=== PATIENT | female | born 1930 | race Caucasian/White ===

== ENCOUNTER 2016-09-16 05:44 | Day surgery (SDC) | payer OTHER ==
[2016-09-15 13:49] VITALS: BMI 22.4
--- NOTE | 2016-09-16 06:48 | HP ---
Admitting History and Physical - Primary Care Physician PCP: Suzette Doty - Admission History of Present Illness: patient is a 86 y/o female with a past medical history of macular degeneration ( legally blind), depression, anxiety, hypertension, and diverticulitis. patient presents for ECT. patient is present with her two sons that provided the history. She has received ECT in the past, approximately 15 years ago with good results. Patient takes lithium daily (lithium level WNL as per son). Son reports that her depression has been stable, however, the recent loss of her , daughter, and sister has caused her to become more depressed. Patient doesn't want to engage in her ADL's and increasingly lethargic as per sons. Son reports that patient was hospitalized in 2015 ([place]) for depression. She was recently admitted to [facility] for diverticulitis. She completed a course of antibiotics, ciprofloxacin and levaquin. Her last dose of antibiotics was 09/02/16. Sons and patient deny any suicide attempts. She denies any suicidal, homicidal ideation, visual or auditory hallucination. History Source: Patient, Family Member (son) - Past Medical History Cardiovascular: Yes: HTN Gastrointestinal: Yes: Diverticulitis Reproductive: Yes: Postmenopausal Endocrine: Yes: Diabetes Mellitus - Past Surgical History Past Surgical History: Yes: Cholecystectomy, - Advance Directives Advance Directives: Yes: Living Will, Health Care Proxy - Smoking History Smoking history: Former smoker Have you smoked in the past 12 months: No If you are a former smoker, when did you quit?: S - Alcohol/Substance Use Hx Alcohol Use: No History of Substance Use: reports: None - Social History Usual Living Arrangement: Yes: Assisted Living ADL: Independent History of Recent Travel: No Home Medications - Allergies Allergies/Adverse Reactions: Allergies Allergy/AdvReac Type Severity Reaction Status Date / Time Penicillins Allergy Severe Hives Verified 09/15/16 13:30 - Home Medications Home Medications: Ambulatory Orders Aspirin [ASA -] 1 tab PO DAILY 09/15/16 Atenolol [Tenormin] 25 mg PO DAILY 09/15/16 Atorvastatin Ca [Lipitor] 10 mg PO HS 09/15/16 Cholecalciferol (Vitamin D3) [Vitamin D3] 2,000 unit PO DAILY 09/15/16 [place] Carbonate [Eskalith -] 150 mg PO HS 09/15/16 Losartan Potassium 100 mg PO DAILY 09/15/16 Metformin HCl [Metformin HCl ER] 500 mg PO BID 09/15/16 Family Disease History - Family Disease History Family History: Unremarkable Review of Systems - Review of Systems Constitutional: reports: No Symptoms Eyes: reports: No Symptoms HENT: reports: No Symptoms Neck: reports: No Symptoms Cardiovascular: reports: No Symptoms Respiratory: reports: No Symptoms Gastrointestinal: reports: No Symptoms Genitourinary: reports: No Symptoms Breasts: reports: No Symptoms Reported Musculoskeletal: reports: No Symptoms Integumentary: reports: No Symptoms Neurological: reports: No Symptoms Endocrine: reports: No Symptoms Hematology/Lymphatic: reports: No Symptoms Psychiatric: reports: Depression Physical Examination Vital Signs: Vital Signs Period Temp Pulse Resp BP Sys/Marroquin Pulse Ox Last 24 Hr 98.4 F 60 18 139/73 95 Constitutional: Yes: Well Nourished, No Distress, Calm Eyes: Yes: WNL, Conjunctiva Clear, EOM Intact HENT: Yes: WNL, Atraumatic, Normocephalic Neck: Yes: WNL, Supple, Trachea Midline Cardiovascular: Yes: WNL, Regular Rate and Rhythm, S1, S2 Respiratory: Yes: WNL, Regular, CTA Bilaterally Gastrointestinal: Yes: WNL, Normal Bowel Sounds, Soft ...Rectal Exam: Yes: Deferred Renal/: Yes: WNL Musculoskeletal: Yes: WNL Extremities: Yes: WNL Edema: No Peripheral Pulses WNL: Yes Peripheral Pulses: Left Radial: 4+, Right Radial: 4+, Left Doralis Pedis: 3+, Right Dorsalis Pedis: 3+, Left Femoral: 3+, Right Femoral: 3+ Integumentary: Yes: WNL Neurological: Yes: WNL, Alert, Oriented ...Motor Strength: WNL Psychiatric: Yes: WNL, Alert, Oriented, Other (flat affect) Labs: CBC WBC 11.0 K/mm3 (4.0-10.0) H 09/16/16 06:30 RBC 4.37 M/mm3 (3.60-5.2) 09/16/16 06:30 Hgb 12.3 GM/dL (10.7-15.3) 09/16/16 06:30 Hct 37.2 % (32.4-45.2) 09/16/16 06:30 MCV 85.2 fl (80-96) 09/16/16 06:30 MCHC 32.9 g/dl (32.0-36.0) 09/16/16 06:30 RDW 13.9 % (11.6-15.6) 09/16/16 06:30 Plt Count 213 K/MM3 (134-434) 09/16/16 06:30 MPV 8.9 fl (7.5-11.1) 09/16/16 06:30 Neutrophils % 68.9 % (42.8-82.8) 09/16/16 06:30 Lymphocytes % 18.0 % (8-40) 09/16/16 06:30 Monocytes % 9.9 % (3.8-10.2) 09/16/16 06:30 Eosinophils % 2.3 % (0-4.5) 09/16/16 06:30 Basophils % 0.9 % (0-2.0) 09/16/16 06:30 CMP Sodium 141 mmol/L (136-145) 09/16/16 06:30 Potassium 4.4 mmol/L (3.5-5.1) 09/16/16 06:30 Chloride 106 mmol/L (98-107) 09/16/16 06:30 Carbon Dioxide 25 mmol/L (22-28) 09/16/16 06:30 Imaging - Results EKG: Report Reviewed, Image Reviewed, Other (nsr no ischemic changes) Assessment/Plan patient is a 86 y/o female that presents for ect, labs and ekg reviewed pt is low risk for procedure informed consent, risk/benefits to be obtained by Dr Genao
[2016-09-16 07:28] VITALS: TEMP 98.4
[2016-09-16 07:45] LABS: BASOPHIL 0.9 % (0-2.0); EOSINOPHIL 2.3 % (0-4.5); MCHC 32.9 g/dl (32.0-36.0); MEAN CELL VOLUME 85.2 fl (80-96); MEAN PLT VOLUME 8.9 fl (7.5-11.1); NEUTROPHILS 68.9 % (42.8-82.8); PLATELET COUNT 213 K/MM3 (134-434); RDW 13.9 % (11.6-15.6)
[2016-09-16 10:37] VITALS: BP 144/69; PULSE 62
--- NOTE | 2016-09-19 22:42 | EKG ---
Test Reason : Blood Pressure : / mmHG Vent. Rate : 062 BPM Atrial Rate : 062 BPM P-R Int : 178 ms QRS Dur : 126 ms QT Int : 440 ms P-R-T Axes : 059 036 034 degrees QTc Int : 446 ms NORMAL SINUS RHYTHM RIGHT BUNDLE BRANCH BLOCK ABNORMAL ECG NO PREVIOUS ECGS AVAILABLE Confirmed by HILL SALAZAR MD ([id number]) on 09/19/2016 10:41:35 PM Referred By: Phil Genao Confirmed By:HILL SALAZAR MD
== END 2016-09-16 10:15 ==
LOC: FECT 05:44
PROVIDERS: ATTEND Psychiatry & Neurology Psychiatry
PROC: GZB4ZZZ Other Electroconvulsive Therapy (ICD-10-PCS; principal; 2016-09-16 07:45)
DX: F33.2 Major depressive disorder, recurrent severe without psychotic features (principal)
CPT/HCPCS: 36415; 80051; 85025; 90870; 93005; 94760

== ENCOUNTER 2016-09-19 05:49 | Day surgery (SDC) | payer OTHER ==
[2016-09-16 12:24] VITALS: BMI 23.3
[2016-09-19] MEDS ORDERED: KETAMINE HCL 500 MG/10 ML VIAL ONE (08:03)
[2016-09-19] MEDS ORDERED: LACTATED RINGERS SOLUTION 1,000 ML IV SCH (09:00)
[2016-09-19 11:23] VITALS: PULSE 76; TEMP 98.3
[2016-09-19 11:27] VITALS: BP 173/89
== END 2016-09-19 10:10 | disposition home or self-care (01) ==
LOC: FECT 05:49
PROVIDERS: ATTEND Psychiatry & Neurology Psychiatry
PROC: GZB4ZZZ Other Electroconvulsive Therapy (ICD-10-PCS; principal; 2016-09-19 08:15)
DX: F33.2 Major depressive disorder, recurrent severe without psychotic features (principal)
CPT/HCPCS: 90870; 94760

== ENCOUNTER 2016-09-21 05:41 | Day surgery (SDC) | payer OTHER ==
[2016-09-20 15:32] VITALS: BMI 23.3
[2016-09-21 06:46] VITALS: TEMP 98.2
[2016-09-21] MEDS ORDERED: KETAMINE HCL 500 MG/10 ML VIAL ONE (07:22)
[2016-09-21] MEDS ORDERED: ONDANSETRON 4 MG/2 ML VIAL IVPUSH PRN (09:02)
[2016-09-21 09:07] VITALS: PULSE 77
[2016-09-21 10:01] VITALS: BP 157/87
== END 2016-09-21 09:45 | disposition home or self-care (01) ==
LOC: FECT 05:41
PROVIDERS: ATTEND Psychiatry & Neurology Psychiatry
PROC: GZB4ZZZ Other Electroconvulsive Therapy (ICD-10-PCS; principal; 2016-09-21 08:00)
DX: F33.2 Major depressive disorder, recurrent severe without psychotic features (principal)
CPT/HCPCS: 90870; 94760

== ENCOUNTER 2016-09-23 05:44 | Day surgery (SDC) | payer OTHER ==
[2016-09-20 15:25] VITALS: BMI 23.3
[2016-09-23] MEDS ORDERED: KETAMINE HCL 500 MG/10 ML VIAL ONE (07:54)
[2016-09-23 09:55] VITALS: TEMP 98.1
[2016-09-23 11:10] VITALS: BP 154/75; PULSE 62
== END 2016-09-23 10:40 | disposition home or self-care (01) ==
LOC: FECT 05:44
PROVIDERS: ATTEND Psychiatry & Neurology Psychiatry
PROC: GZB4ZZZ Other Electroconvulsive Therapy (ICD-10-PCS; principal; 2016-09-23 08:15)
DX: F33.2 Major depressive disorder, recurrent severe without psychotic features (principal)
CPT/HCPCS: 90870; 94760

== ENCOUNTER 2016-10-03 05:43 | Day surgery (SDC) | payer OTHER ==
[2016-09-27 10:55] VITALS: BMI 23.3
[2016-10-03 06:21] VITALS: TEMP 98.2
[2016-10-03] MEDS ORDERED: KETAMINE HCL 500 MG/10 ML VIAL ONE (06:57)
[2016-10-03 08:27] VITALS: BP 137/66; PULSE 56
== END 2016-10-03 08:30 | disposition home or self-care (01) ==
LOC: FECT 05:43
PROVIDERS: ATTEND Psychiatry & Neurology Psychiatry
PROC: GZB4ZZZ Other Electroconvulsive Therapy (ICD-10-PCS; principal; 2016-10-03 08:00)
DX: F33.2 Major depressive disorder, recurrent severe without psychotic features (principal)
CPT/HCPCS: 90870; 94760

== ENCOUNTER 2016-10-05 05:42 | Day surgery (SDC) | payer OTHER ==
[2016-10-03 13:24] VITALS: BMI 22.4
[2016-10-05] MEDS ORDERED: KETAMINE HCL 500 MG/10 ML VIAL ONE (07:29)
[2016-10-05 08:40] VITALS: TEMP 97.6
[2016-10-05 09:02] VITALS: BP 146/77; PULSE 61
== END 2016-10-05 09:10 | disposition home or self-care (01) ==
LOC: FECT 05:42
PROVIDERS: ATTEND Psychiatry & Neurology Psychiatry
PROC: GZB4ZZZ Other Electroconvulsive Therapy (ICD-10-PCS; principal; 2016-10-05 08:15)
DX: F33.2 Major depressive disorder, recurrent severe without psychotic features (principal)
CPT/HCPCS: 90870; 94760

== ENCOUNTER 2016-10-07 06:16 | Day surgery (SDC) | payer OTHER ==
[2016-10-04 11:46] VITALS: BMI 22.4
[2016-10-07 06:45] VITALS: TEMP 98
[2016-10-07] MEDS ORDERED: KETAMINE HCL 500 MG/10 ML VIAL ONE (07:09)
[2016-10-07] MEDS ORDERED: LACTATED RINGERS SOLUTION 1,000 ML IV SCH (07:45)
[2016-10-07 08:51] VITALS: BP 145/66; PULSE 60
[2016-10-07] MEDS ORDERED: ONDANSETRON 4 MG/2 ML VIAL IVPUSH PRN (09:08)
== END 2016-10-07 08:45 | disposition home or self-care (01) ==
LOC: FECT 06:16
PROVIDERS: ATTEND Psychiatry & Neurology Psychiatry
PROC: GZB4ZZZ Other Electroconvulsive Therapy (ICD-10-PCS; principal; 2016-10-07 07:45)
DX: F33.2 Major depressive disorder, recurrent severe without psychotic features (principal)
CPT/HCPCS: 90870; 94760

== ENCOUNTER 2016-10-10 05:37 | Day surgery (SDC) | payer OTHER ==
[2016-10-04 12:24] VITALS: BMI 22.4
[2016-10-10] MEDS ORDERED: KETAMINE HCL 500 MG/10 ML VIAL ONE (07:26)
[2016-10-10 08:16] VITALS: TEMP 97.6
[2016-10-10 09:27] VITALS: BP 146/61; PULSE 58
== END 2016-10-10 09:31 | disposition home or self-care (01) ==
LOC: FECT 05:37
PROVIDERS: ATTEND Psychiatry & Neurology Psychiatry
PROC: GZB4ZZZ Other Electroconvulsive Therapy (ICD-10-PCS; principal; 2016-10-10 07:30)
DX: F33.2 Major depressive disorder, recurrent severe without psychotic features (principal)
CPT/HCPCS: 90870; 94760

== ENCOUNTER 2016-10-12 05:28 | Day surgery (SDC) | payer OTHER ==
[2016-10-06 13:32] VITALS: BMI 22.4
[2016-10-12] MEDS ORDERED: KETAMINE HCL 500 MG/10 ML VIAL ONE (07:10)
[2016-10-12 08:51] VITALS: TEMP 98.2
[2016-10-12 09:03] VITALS: BP 150/74; PULSE 58
== END 2016-10-12 09:05 | disposition home or self-care (01) ==
LOC: FECT 05:28
PROVIDERS: ATTEND Psychiatry & Neurology Psychiatry
PROC: GZB4ZZZ Other Electroconvulsive Therapy (ICD-10-PCS; principal; 2016-10-12 07:30)
DX: F33.2 Major depressive disorder, recurrent severe without psychotic features (principal)
CPT/HCPCS: 90870; 94760

== ENCOUNTER 2016-10-18 05:37 | Day surgery (SDC) | payer OTHER ==
[2016-09-21 16:34] VITALS: BMI 23.3
--- NOTE | 2016-10-18 07:19 | HP ---
Admitting History and Physical - Admission History of Present Illness: patient is a 86 y/o female with a past medical history of depression, anxiety, macular degeneration (legally blind), hypertension, and diverticulitis. patient presents for ect,her last ect was 10/14/16. she reports feeling much improved since starting ect. she reports an ability to engage in her adl's and less lethargy. she denies any suicidal or homicidal ideation. she denies any recent medication changes or illneses. History Source: Patient Limitations to Obtaining History: No Limitations - Past Medical History Cardiovascular: Yes: HTN Gastrointestinal: Yes: Diverticulitis Endocrine: Yes: Diabetes Mellitus - Past Surgical History Past Surgical History: Yes: Cholecystectomy, - Smoking History Smoking history: Former smoker Have you smoked in the past 12 months: No If you are a former smoker, when did you quit?: - Alcohol/Substance Use Hx Alcohol Use: No History of Substance Use: reports: None - Social History ADL: Independent History of Recent Travel: No Home Medications - Allergies Allergies/Adverse Reactions: Allergies Allergy/AdvReac Type Severity Reaction Status Date / Time Penicillins Allergy Severe Hives Verified 10/12/16 06:30 - Home Medications Home Medications: Ambulatory Orders Aspirin [ASA -] 1 tab PO DAILY 09/15/16 Atenolol [Tenormin] 25 mg PO DAILY 09/15/16 Atorvastatin Ca [Lipitor] 10 mg PO HS 09/15/16 Cholecalciferol (Vitamin D3) [Vitamin D3] 2,000 unit PO DAILY 09/15/16 [place] Carbonate [Eskalith -] 150 mg PO HS 09/15/16 Losartan Potassium 100 mg PO DAILY 09/15/16 Vitamin B Complex 1 each PO DAILY 10/10/16 Family Disease History - Family Disease History Family Disease History: Other: Daughter (depresssion ) Review of Systems - Review of Systems Constitutional: reports: No Symptoms Eyes: reports: No Symptoms HENT: reports: No Symptoms Neck: reports: No Symptoms Cardiovascular: reports: No Symptoms Respiratory: reports: No Symptoms Gastrointestinal: reports: No Symptoms Genitourinary: reports: No Symptoms Breasts: reports: No Symptoms Reported Musculoskeletal: reports: No Symptoms Integumentary: reports: No Symptoms Neurological: reports: No Symptoms Endocrine: reports: No Symptoms Hematology/Lymphatic: reports: No Symptoms Psychiatric: reports: No Symptoms Physical Examination Vital Signs: Vital Signs Temperature 97.5 F L 10/18/16 06:09 Pulse Rate 55 L 10/18/16 06:09 Respiratory Rate 16 10/18/16 06:09 Blood Pressure 158/71 10/18/16 06:09 O2 Sat by Pulse Oximetry (%) 97 10/18/16 06:09 Constitutional: Yes: Well Nourished, No Distress, Calm Eyes: Yes: WNL, Conjunctiva Clear, EOM Intact HENT: Yes: WNL, Atraumatic, Normocephalic Neck: Yes: WNL, Supple, Trachea Midline Cardiovascular: Yes: WNL, Regular Rate and Rhythm, S1, S2 Respiratory: Yes: WNL, Regular, CTA Bilaterally Gastrointestinal: Yes: WNL, Normal Bowel Sounds, Soft ...Rectal Exam: Yes: Deferred Renal/: Yes: WNL Breast(s): Yes: WNL Musculoskeletal: Yes: WNL Extremities: Yes: WNL Edema: No Peripheral Pulses WNL: Yes Peripheral Pulses: Left Radial: 4+, Right Radial: 4+, Left Doralis Pedis: 3+, Right Dorsalis Pedis: 3+, Left Femoral: 3+, Right Femoral: 3+ Integumentary: Yes: WNL Neurological: Yes: WNL, Alert, Oriented ...Motor Strength: WNL Psychiatric: Yes: WNL, Alert, Oriented Labs: reviewed 09/02 Imaging - Results EKG: Image Reviewed, Other (nsr no ischemic changes) Assessment/Plan pt is a 86 y/o female that presents for ect, pat has received ect in the past and denies any adverse reaction to anesthesia labs and ekg reviewed pt is low risk for procedure informed consent, risks/benefits to be obtained by Dr Genao
[2016-10-18] MEDS ORDERED: KETAMINE HCL 500 MG/10 ML VIAL ONE (07:38)
[2016-10-18 09:04] VITALS: TEMP 97.8
[2016-10-18 09:06] VITALS: BP 148/78; PULSE 56
== END 2016-10-18 09:15 | disposition home or self-care (01) ==
LOC: FECT 05:37
PROVIDERS: ATTEND Psychiatry & Neurology Psychiatry
PROC: GZB4ZZZ Other Electroconvulsive Therapy (ICD-10-PCS; principal; 2016-10-18 07:30)
DX: F33.2 Major depressive disorder, recurrent severe without psychotic features (principal)
CPT/HCPCS: 90870; 94760

== ENCOUNTER 2016-10-25 05:36 | Day surgery (SDC) | payer OTHER ==
[2016-09-21 16:26] VITALS: BMI 23.3
[~2016-10-25 05:36] MED LIST: LACTATED RINGERS SOLUTION 1,000 ML IV SCH; ONDANSETRON 4 MG/2 ML VIAL IVPUSH PRN
[2016-10-25] MEDS ORDERED: KETAMINE HCL 500 MG/10 ML VIAL ONE (06:54)
[2016-10-25 08:04] VITALS: TEMP 97.4
[2016-10-25 08:58] VITALS: BP 146/72; PULSE 54
== END 2016-10-25 09:02 | disposition home or self-care (01) ==
LOC: FECT 05:36
PROVIDERS: ATTEND Psychiatry & Neurology Psychiatry
PROC: GZB4ZZZ Other Electroconvulsive Therapy (ICD-10-PCS; principal; 2016-10-25 07:00)
DX: F33.2 Major depressive disorder, recurrent severe without psychotic features (principal)
CPT/HCPCS: 90870; 94760

== ENCOUNTER 2016-11-01 05:48 | Day surgery (SDC) | payer OTHER ==
[2016-10-27 12:33] VITALS: BMI 23.3
[2016-11-01] MEDS ORDERED: LACTATED RINGERS SOLUTION 1,000 ML IV SCH (07:30)
[2016-11-01] MEDS ORDERED: KETAMINE HCL 500 MG/10 ML VIAL ONE (07:30)
[2016-11-01 14:30] VITALS: TEMP 98.4
[2016-11-01 14:38] VITALS: BP 140/68; PULSE 57
== END 2016-11-01 09:30 | disposition home or self-care (01) ==
LOC: FECT 05:48
PROVIDERS: ATTEND Psychiatry & Neurology Psychiatry
PROC: GZB4ZZZ Other Electroconvulsive Therapy (ICD-10-PCS; principal; 2016-11-01 07:30)
DX: F33.2 Major depressive disorder, recurrent severe without psychotic features (principal)
CPT/HCPCS: 90870; 94760

== ENCOUNTER 2016-11-15 05:42 | Day surgery (SDC) | payer OTHER ==
[2016-11-08 11:51] VITALS: BMI 23.3
[2016-11-15] MEDS ORDERED: KETAMINE HCL 500 MG/10 ML VIAL ONE (07:31)
[2016-11-15] MEDS ORDERED: ACETAMINOPHEN 325 MG TABLET (FP) PO PRN (07:49)
[2016-11-15] MEDS ORDERED: ONDANSETRON 4 MG/2 ML VIAL IVPUSH PRN (07:49)
[2016-11-15 08:52] VITALS: TEMP 98.2
[2016-11-15 09:17] VITALS: BP 143/75; PULSE 61
== END 2016-11-15 09:25 | disposition home or self-care (01) ==
LOC: FECT 05:42
PROVIDERS: ATTEND Psychiatry & Neurology Psychiatry
PROC: GZB4ZZZ Other Electroconvulsive Therapy (ICD-10-PCS; principal; 2016-11-15 07:15)
DX: F33.2 Major depressive disorder, recurrent severe without psychotic features (principal)
CPT/HCPCS: 90870; 94760

== ENCOUNTER 2016-11-29 05:38 | Day surgery (SDC) | payer OTHER ==
[2016-11-17 12:17] VITALS: BMI 23.3
[2016-11-29 07:16] VITALS: TEMP 98.2
--- NOTE | 2016-11-29 07:34 | HP ---
Admitting History and Physical - Admission History of Present Illness: patient is a 86 y/o female with a past medical history of depression, anxiety, macular degeneration (legally blind), hypertension, and diverticulitis. patient presents for ect, his last ect was 11/15/16. patient reports feeling well , she reports an improvement in depressive symptoms since starting ect. She reports moving back into her assisted living apartment and engaging more activities. patient reports compliance with prescribed medication and denies any recent illness. History Source: Patient Limitations to Obtaining History: No Limitations - Past Medical History Cardiovascular: Yes: HTN Gastrointestinal: Yes: Diverticulitis Endocrine: Yes: Diabetes Mellitus - Past Surgical History Past Surgical History: Yes: Cholecystectomy, - Smoking History Smoking history: Former smoker Have you smoked in the past 12 months: No If you are a former smoker, when did you quit?: S - Alcohol/Substance Use Hx Alcohol Use: No History of Substance Use: reports: None - Social History ADL: Independent History of Recent Travel: No Home Medications - Allergies Allergies/Adverse Reactions: Allergies Allergy/AdvReac Type Severity Reaction Status Date / Time Penicillins Allergy Severe Hives Verified 10/12/16 06:30 - Home Medications Home Medications: Ambulatory Orders Aspirin [ASA -] 1 tab PO DAILY 09/15/16 Atenolol [Tenormin] 25 mg PO DAILY 09/15/16 Atorvastatin Ca [Lipitor] 10 mg PO HS 09/15/16 Cholecalciferol (Vitamin D3) [Vitamin D3] 2,000 unit PO DAILY 09/15/16 [place] Carbonate [Eskalith -] 150 mg PO HS 09/15/16 Losartan Potassium 100 mg PO DAILY 09/15/16 Vitamin B Complex 1 each PO DAILY 10/10/16 Family Disease History - Family Disease History Family Disease History: Other: Daughter (depresssion ) Review of Systems - Review of Systems Constitutional: reports: No Symptoms Eyes: reports: No Symptoms HENT: reports: No Symptoms Neck: reports: No Symptoms Cardiovascular: reports: No Symptoms Respiratory: reports: No Symptoms Gastrointestinal: reports: No Symptoms Genitourinary: reports: No Symptoms Musculoskeletal: reports: No Symptoms Integumentary: reports: No Symptoms Neurological: reports: No Symptoms Endocrine: reports: No Symptoms Hematology/Lymphatic: reports: No Symptoms Psychiatric: reports: No Symptoms Physical Examination Constitutional: Yes: Well Nourished, No Distress, Calm Eyes: Yes: WNL, Conjunctiva Clear, EOM Intact HENT: Yes: WNL, Atraumatic, Normocephalic Neck: Yes: WNL, Supple, Trachea Midline Cardiovascular: Yes: WNL, Regular Rate and Rhythm, S1, S2 Respiratory: Yes: WNL, Regular, CTA Bilaterally Gastrointestinal: Yes: WNL, Normal Bowel Sounds, Soft ...Rectal Exam: Yes: Deferred Renal/: Yes: WNL Musculoskeletal: Yes: WNL Extremities: Yes: WNL Edema: No Peripheral Pulses WNL: Yes Peripheral Pulses: Left Radial: 4+, Right Radial: 4+, Left Doralis Pedis: 3+, Right Dorsalis Pedis: 3+, Left Femoral: 3+, Right Femoral: 3+ Integumentary: Yes: WNL Neurological: Yes: WNL, Alert, Oriented ...Motor Strength: WNL Psychiatric: Yes: WNL, Alert, Oriented Labs: reviewed 09/02 Imaging - Results EKG: Image Reviewed, Other (nsr no ischemic changes) Assessment/Plan pt is a 86 y/o female that presents for ect, pt has received ect in the past and denies any adverse reaction to anesthesia. labs and ekg reviewed pt is low risk for procedure informed consent, risks/benefits to be obtained by Dr Genao
[2016-11-29] MEDS ORDERED: KETAMINE HCL 500 MG/10 ML VIAL ONE (08:02)
[2016-11-29 09:17] VITALS: PULSE 56
[2016-11-29 09:49] VITALS: BP 139/71
== END 2016-11-29 09:45 | disposition home or self-care (01) ==
LOC: FECT 05:38
PROVIDERS: ATTEND Psychiatry & Neurology Psychiatry
PROC: GZB4ZZZ Other Electroconvulsive Therapy (ICD-10-PCS; principal; 2016-11-29 07:30)
DX: F33.2 Major depressive disorder, recurrent severe without psychotic features (principal)
CPT/HCPCS: 90870; 94760

== ENCOUNTER 2016-12-13 05:39 | Day surgery (SDC) | payer OTHER ==
[2016-12-07 12:46] VITALS: BMI 23.3
[2016-12-13] MEDS ORDERED: KETAMINE HCL 500 MG/10 ML VIAL ONE (07:34)
[2016-12-13 08:38] VITALS: TEMP 97.7
[2016-12-13 09:29] VITALS: BP 168/72; PULSE 61
== END 2016-12-13 09:20 | disposition home or self-care (01) ==
LOC: FECT 05:39
PROVIDERS: ATTEND Psychiatry & Neurology Psychiatry
PROC: GZB4ZZZ Other Electroconvulsive Therapy (ICD-10-PCS; principal; 2016-12-13 07:00)
DX: F33.2 Major depressive disorder, recurrent severe without psychotic features (principal)
CPT/HCPCS: 90870; 94760

== ENCOUNTER 2016-12-27 05:38 | Day surgery (SDC) | payer OTHER ==
[2016-12-22 08:36] VITALS: BMI 23.3
[2016-12-27] MEDS ORDERED: KETAMINE HCL 500 MG/10 ML VIAL ONE (07:05)
[2016-12-27 08:23] VITALS: TEMP 97.5
[2016-12-27 08:42] VITALS: BP 145/74; PULSE 61
== END 2016-12-27 08:40 | disposition home or self-care (01) ==
LOC: FECT 05:38
PROVIDERS: ATTEND Psychiatry & Neurology Psychiatry
PROC: GZB4ZZZ Other Electroconvulsive Therapy (ICD-10-PCS; principal; 2016-12-27 07:45)
DX: F33.2 Major depressive disorder, recurrent severe without psychotic features (principal)
CPT/HCPCS: 90870; 94760

== ENCOUNTER 2017-01-17 05:36 | Day surgery (SDC) | payer OTHER ==
[2017-01-11 11:29] VITALS: BMI 23.3
--- NOTE | 2017-01-17 07:05 | HP ---
Admitting History and Physical - Admission History of Present Illness: patient is a 86 y/o female with a past medical history of depression, anxiety, macular degeneration (legally blind), hypertension, and diverticulitis. Patient presents for ect, her last ect was 12/27/16. She reports feeling well and improvement in depressive symptoms since starting ect. she reports engaging in more activities in her assisted living. she denies any recent illnesses or hospitalizations. she denies any changes in medicaitons. patient denies any suicidal or homicidal ideation, visual or auditoyr hallucinations. History Source: Patient Limitations to Obtaining History: No Limitations - Past Medical History Cardiovascular: Yes: HTN Gastrointestinal: Yes: Diverticulitis Endocrine: Yes: Diabetes Mellitus - Past Surgical History Past Surgical History: Yes: Cholecystectomy, - Smoking History Smoking history: Former smoker Have you smoked in the past 12 months: No If you are a former smoker, when did you quit?: S - Alcohol/Substance Use Hx Alcohol Use: No History of Substance Use: reports: None - Social History ADL: Independent History of Recent Travel: No Home Medications - Allergies Allergies/Adverse Reactions: Allergies Allergy/AdvReac Type Severity Reaction Status Date / Time Penicillins Allergy Severe Hives Verified 01/17/17 07:32 - Home Medications Home Medications: Ambulatory Orders Aspirin [ASA -] 1 tab PO DAILY 09/15/16 Atenolol [Tenormin] 25 mg PO DAILY 09/15/16 Atorvastatin Ca [Lipitor] 10 mg PO HS 09/15/16 Cholecalciferol (Vitamin D3) [Vitamin D3] 2,000 unit PO DAILY 09/15/16 [place] Carbonate [Eskalith -] 150 mg PO HS 09/15/16 Losartan Potassium 100 mg PO DAILY 09/15/16 Vitamin B Complex 1 each PO DAILY 10/10/16 Metformin HCl 500 mg PO DAILY 11/29/16 Family Disease History - Family Disease History Family Disease History: Other: Daughter (depresssion ) Review of Systems - Review of Systems Constitutional: reports: No Symptoms Eyes: reports: No Symptoms HENT: reports: No Symptoms Neck: reports: No Symptoms Cardiovascular: reports: No Symptoms Respiratory: reports: No Symptoms Gastrointestinal: reports: No Symptoms Genitourinary: reports: No Symptoms Musculoskeletal: reports: No Symptoms Integumentary: reports: No Symptoms Neurological: reports: No Symptoms Endocrine: reports: No Symptoms Hematology/Lymphatic: reports: No Symptoms Psychiatric: reports: No Symptoms Physical Examination Constitutional: Yes: Well Nourished, No Distress, Calm Eyes: Yes: WNL, Conjunctiva Clear, EOM Intact HENT: Yes: WNL, Atraumatic, Normocephalic Neck: Yes: WNL, Supple, Trachea Midline Cardiovascular: Yes: WNL, Regular Rate and Rhythm, S1, S2 Respiratory: Yes: WNL, Regular, CTA Bilaterally Gastrointestinal: Yes: WNL, Normal Bowel Sounds, Soft ...Rectal Exam: Yes: Deferred Renal/: Yes: WNL Breast(s): Yes: WNL Musculoskeletal: Yes: WNL Extremities: Yes: WNL Edema: No Peripheral Pulses WNL: Yes Peripheral Pulses: Left Radial: 4+, Right Radial: 4+, Left Doralis Pedis: 3+, Right Dorsalis Pedis: 3+, Left Femoral: 3+, Right Femoral: 3+ Integumentary: Yes: WNL Neurological: Yes: WNL, Alert, Oriented ...Motor Strength: WNL Psychiatric: Yes: WNL, Alert, Oriented Labs: reviewed 09/16/16 Imaging - Results EKG: Report Reviewed, Image Reviewed, Other (nsr no ischemic changes) Assessment/Plan pt is a 86 y/o female that presents for ect, labs and ekg reviewed. pt is medically optimized for procedure.
[2017-01-17 07:30] VITALS: TEMP 97.9
[2017-01-17] MEDS ORDERED: KETAMINE HCL 500 MG/10 ML VIAL ONE (08:25)
[2017-01-17 10:02] VITALS: BP 135/65; PULSE 55
== END 2017-01-17 09:50 | disposition home or self-care (01) ==
LOC: FECT 05:36
PROVIDERS: ATTEND Psychiatry & Neurology Psychiatry
PROC: GZB4ZZZ Other Electroconvulsive Therapy (ICD-10-PCS; principal; 2017-01-17 07:00)
DX: F33.2 Major depressive disorder, recurrent severe without psychotic features (principal)
CPT/HCPCS: 90870; 94760

== ENCOUNTER 2017-02-09 05:40 | Day surgery (SDC) | payer OTHER ==
[2017-02-06 17:22] VITALS: BMI 23.3
[2017-02-09] MEDS ORDERED: LACTATED RINGERS SOLUTION 1,000 ML IV SCH (07:15)
[2017-02-09] MEDS ORDERED: KETAMINE HCL 500 MG/10 ML VIAL ONE (07:29)
[2017-02-09 09:13] VITALS: PULSE 58; TEMP 97.6
[2017-02-09 09:17] VITALS: BP 149/68
== END 2017-02-09 09:10 | disposition home or self-care (01) ==
LOC: FECT 05:40
PROVIDERS: ATTEND Psychiatry & Neurology Psychiatry
PROC: GZB4ZZZ Other Electroconvulsive Therapy (ICD-10-PCS; principal; 2017-02-09 07:15)
DX: F33.2 Major depressive disorder, recurrent severe without psychotic features (principal)
CPT/HCPCS: 90870; 94760

== ENCOUNTER 2017-03-02 06:43 | Day surgery (SDC) | payer OTHER ==
--- NOTE | 2017-03-02 07:13 | HP ---
Admitting History and Physical - Admission History of Present Illness: patient is a 86 y/o female with a past medical history of depression, anxiety, macular degeneration (legally blind), hypertension, and diverticulitis. Patient presents for ect her last ect was 02/09/17. She reports an improvement in depressive symptoms since starting ect. Patient denies any recent illness or hospitalizations. She denies any changes in medications. Patient denies any suicidal or homicidal ideation, visual or auditory hallucinations. History Source: Patient Limitations to Obtaining History: No Limitations - Past Medical History Cardiovascular: Yes: HTN Gastrointestinal: Yes: Diverticulitis Endocrine: Yes: Diabetes Mellitus - Past Surgical History Past Surgical History: Yes: Cholecystectomy, - Smoking History Smoking history: Former smoker Have you smoked in the past 12 months: No If you are a former smoker, when did you quit?: S - Alcohol/Substance Use Hx Alcohol Use: No History of Substance Use: reports: None - Social History Usual Living Arrangement: Yes: Alone, Assisted Living ADL: Independent Occupation: retired History of Recent Travel: No Home Medications - Allergies Allergies/Adverse Reactions: Allergies Allergy/AdvReac Type Severity Reaction Status Date / Time Penicillins Allergy Severe Hives Verified 01/17/17 07:32 - Home Medications Home Medications: Ambulatory Orders Aspirin [ASA -] 1 tab PO DAILY 09/15/16 Atenolol [Tenormin] 25 mg PO DAILY 09/15/16 Atorvastatin Ca [Lipitor] 10 mg PO HS 09/15/16 Cholecalciferol (Vitamin D3) [Vitamin D3] 2,000 unit PO DAILY 09/15/16 [place] Carbonate [Eskalith -] 150 mg PO HS 09/15/16 Losartan Potassium 100 mg PO DAILY 09/15/16 Vitamin B Complex 1 each PO DAILY 10/10/16 Metformin HCl 500 mg PO DAILY 11/29/16 Family Disease History - Family Disease History Family Disease History: Other: Daughter (depresssion ) Review of Systems - Review of Systems Constitutional: reports: No Symptoms Eyes: reports: No Symptoms HENT: reports: No Symptoms Neck: reports: No Symptoms Cardiovascular: reports: No Symptoms Respiratory: reports: No Symptoms Gastrointestinal: reports: No Symptoms Genitourinary: reports: No Symptoms Breasts: reports: No Symptoms Reported Musculoskeletal: reports: No Symptoms Integumentary: reports: No Symptoms Neurological: reports: No Symptoms Endocrine: reports: No Symptoms Hematology/Lymphatic: reports: No Symptoms Psychiatric: reports: No Symptoms Physical Examination Constitutional: Yes: Well Nourished, No Distress, Calm Eyes: Yes: WNL, Conjunctiva Clear, EOM Intact HENT: Yes: WNL, Atraumatic, Normocephalic Neck: Yes: WNL, Supple, Trachea Midline Cardiovascular: Yes: WNL, Regular Rate and Rhythm, S1, S2 Respiratory: Yes: WNL, Regular, CTA Bilaterally Gastrointestinal: Yes: WNL, Normal Bowel Sounds, Soft ...Rectal Exam: Yes: Deferred Renal/: Yes: WNL Breast(s): Yes: WNL Musculoskeletal: Yes: WNL Extremities: Yes: WNL Edema: No Peripheral Pulses WNL: Yes Peripheral Pulses: Left Radial: 4+, Right Radial: 4+, Left Doralis Pedis: 3+, Right Dorsalis Pedis: 3+, Left Femoral: 3+, Right Femoral: 3+ Integumentary: Yes: WNL Neurological: Yes: WNL, Alert, Oriented ...Motor Strength: WNL Psychiatric: Yes: WNL, Alert, Oriented Labs: reviewed 09/16/16 Imaging - Results EKG: Other (nsr Right BBB) Assessment/Plan patient is a 86 y/o female, that presents for ect, labs and ekg reviewed pt is medically optimized for procedure informed consent, risks/benefits to be obtained by Dr Genao
[2017-03-02 08:32] VITALS: BMI 23.4
[2017-03-02] MEDS ORDERED: KETAMINE HCL 500 MG/10 ML VIAL ONE (08:47)
[2017-03-02 10:40] VITALS: TEMP 97.4
[2017-03-02 10:41] VITALS: BP 144/66; PULSE 60
[2017-03-02 10:51] LABS: BASOPHIL 0.8 % (0-2.0); EOSINOPHIL 1.7 % (0-4.5); MCH 28.9 pg (25.7-33.7); MCHC 33.2 g/dl (32.0-36.0); MEAN PLT VOLUME 9.4 fl (7.5-11.1); NEUTROPHILS 65.5 % (42.8-82.8); PLATELET COUNT 150 K/MM3 (134-434); RDW 13.1 % (11.6-15.6); WHITE BLOOD COUNT 6.8 K/mm3 (4.0-10.8)
== END 2017-03-02 10:20 | disposition home or self-care (01) ==
LOC: FECT 06:43
PROVIDERS: ATTEND Psychiatry & Neurology Psychiatry
PROC: GZB4ZZZ Other Electroconvulsive Therapy (ICD-10-PCS; principal; 2017-03-02 07:15)
DX: F33.2 Major depressive disorder, recurrent severe without psychotic features (principal)
CPT/HCPCS: 36415; 85025; 90870; 94760

== ENCOUNTER 2017-03-27 06:02 | Day surgery (SDC) | payer OTHER ==
[2017-03-27 07:57] VITALS: BMI 23.3
[2017-03-27] MEDS ORDERED: KETAMINE HCL 500 MG/10 ML VIAL ONE (08:41)
[2017-03-27 09:49] VITALS: TEMP 97.7
[2017-03-27 11:02] VITALS: BP 164/76; PULSE 57
--- NOTE | 2017-03-28 20:03 | EKG ---
Test Reason : Blood Pressure : / mmHG Vent. Rate : 057 BPM Atrial Rate : 057 BPM P-R Int : 192 ms QRS Dur : 132 ms QT Int : 450 ms P-R-T Axes : 042 059 032 degrees QTc Int : 438 ms SINUS BRADYCARDIA RIGHT BUNDLE BRANCH BLOCK ABNORMAL ECG WHEN COMPARED WITH ECG OF 16-SEP-2016 09:36, NO SIGNIFICANT CHANGE WAS FOUND Confirmed by SHAYNA RYAN MD ([id number]) on 03/28/2017 8:02:59 PM Referred By: Phil Genao Confirmed By:SHAYNA RYAN MD
== END 2017-03-27 10:25 | disposition home or self-care (01) ==
LOC: FECT 06:02
PROVIDERS: ATTEND Psychiatry & Neurology Psychiatry
PROC: GZB4ZZZ Other Electroconvulsive Therapy (ICD-10-PCS; principal; 2017-03-27 08:15)
DX: F33.2 Major depressive disorder, recurrent severe without psychotic features (principal)
CPT/HCPCS: 90870; 93005; 94760

== ENCOUNTER 2017-05-23 05:39 | Day surgery (SDC) | payer OTHER ==
[2017-05-23 06:46] VITALS: BMI 22.9
[2017-05-23] MEDS ORDERED: KETAMINE HCL 500 MG/10 ML VIAL ONE (07:27)
[2017-05-23 08:37] VITALS: TEMP 97.7
[2017-05-23 08:45] VITALS: BP 161/78; PULSE 82
[2017-05-23] MEDS ORDERED: ONDANSETRON 4 MG/2 ML VIAL IVPUSH PRN (11:33)
[2017-05-23] MEDS ORDERED: LACTATED RINGERS SOLUTION 1,000 ML IV SCH (11:45)
== END 2017-05-23 08:45 | disposition home or self-care (01) ==
LOC: FECT 05:39
PROVIDERS: ATTEND Psychiatry & Neurology Psychiatry
PROC: GZB4ZZZ Other Electroconvulsive Therapy (ICD-10-PCS; principal; 2017-05-23 07:00)
DX: F33.2 Major depressive disorder, recurrent severe without psychotic features (principal)
CPT/HCPCS: 90870; 94760

== ENCOUNTER 2017-07-04 09:12 | Inpatient (IN) | payer OTHER ==
--- NOTE | 2017-07-04 09:25 | PDOC ---
History of Present Illness - General History Source: Family Exam Limitations: Clinical Condition - History of Present Illness Initial Comments: 07/04/17 09:23 89y F hx of severe depression/anxiety on ECT presents, macular deneration, htn, diverticulitis, recent L hip fracture s/p L total hip presents with complaint of AMS. Pt had recent hip surgery on 06/11, was changed from dilaudid at home to tramadol last week, took it from Wed - family noted the pt started deteriorating several days ago, more incoherent, refusing to take her meds, and for the past 24 hrs refusing to eat or drink. Family was able to give her her eliquis. History limited from the pt due to her clinical condition. per family, no sigificant coughing, fever/chills seems to be complaining of abd pain, last BM was on monday <Yobani Danielson - Last Filed: 07/04/17 09:58> <Nicci Gayle - Last Filed: 07/06/17 11:45> - General Chief Complaint: Altered Mental Status Stated Complaint: AMS,CONFUSION Time Seen by Provider: 07/04/17 09:16 Past History - Past Medical History Cardiac Disorders: No COPD: No Diabetes: Yes HTN: Yes Hypercholesterolemia: Yes Psychiatric Problems: Yes (depression on ECT) Seizures: No Thyroid Disease: No - Suicide/Smoking/Psychosocial Hx Smoking History: Former smoker Have you smoked in the past 12 months: No If you are a former smoker, when did you quit?: years ago Information on smoking cessation initiated: No Hx Alcohol Use: No Drug/Substance Use Hx: No Substance Use Type: None Hx Substance Use Treatment: No <Yobani Danielson - Last Filed: 07/04/17 09:58> <Nicci Gayle - Last Filed: 07/06/17 11:45> - Past Medical History Allergies/Adverse Reactions: Allergies Allergy/AdvReac Type Severity Reaction Status Date / Time Penicillins Allergy Severe Hives Verified 07/04/17 09:13 Home Medications: Ambulatory Orders Atenolol [Tenormin] 25 mg PO DAILY 09/15/16 Atorvastatin Ca [Lipitor] 10 mg PO HS 09/15/16 Cholecalciferol (Vitamin D3) [Vitamin D3] 2,000 unit PO DAILY 09/15/16 [place] Carbonate [Eskalith -] 150 mg PO HS 09/15/16 Losartan Potassium 100 mg PO DAILY 09/15/16 Vitamin B Complex 1 each PO DAILY 10/10/16 Metformin HCl 500 mg PO DAILY 11/29/16 Rivaroxaban [Xarelto -] 10 mg PO DAILY 07/04/17 Review of Systems - Review of Systems Able to Perform ROS?: No <Yobani Danielson - Last Filed: 07/04/17 09:58> *Physical Exam - Vital Signs Last Vital Signs Temp Pulse Resp BP Pulse Ox 98.3 F 78 16 97/58 93 L 07/04/17 09:13 07/04/17 09:13 07/04/17 09:13 07/04/17 09:13 07/04/17 09:13 - Physical Exam Comments: 07/04/17 09:43 GENERAL: The patient is awake, moaning incoherently, but able to tell me her name HEAD: Normocephalic, atraumatic. EYES: sclera anicteric, conjunctiva clear. ENT: Normal voice, dry mucous membranes. NECK: Normal range of motion, supple LUNGS: Breath sounds equal, clear to auscultation bilaterally. No wheezes, no rhonchi, no rales. HEART: tachycardic, normal S1 and S2 without murmur, rub or gallop. ABDOMEN: distended, soft, mild L sided tenderness, no rebound / guading EXTREMITIES: Normal range of motion, no edema, L hip incision c/d/i without signs of infection NEUROLOGICAL: No facial assymetry, moving all 4 extremities sptnaouelsly PSYCH: unable to assess SKIN: Warm, Dry, normal turgor <Yobani Danielson - Last Filed: 07/04/17 09:58> - Vital Signs Last Vital Signs Temp Pulse Resp BP Pulse Ox 98.3 F 78 16 97/58 93 L 07/04/17 09:13 07/04/17 09:13 07/04/17 09:13 07/04/17 09:13 07/04/17 09:13 <Nicci Gayle S - Last Filed: 07/06/17 11:45> ED Treatment Course - LABORATORY CBC & Chemistry Diagram: 07/06/17 05:10 07/06/17 05:10 - ADDITIONAL ORDERS Additional order review: Laboratory Results 07/04/17 07/04/17 10:50 10:10 Lactic Acid 1.6 Urine Color Yellow Urine Appearance Clear Urine pH 5.0 Ur Specific [place] 1.010 Urine Protein 2+ H Urine Glucose (UA) Negative Urine Ketones Trace Urine Blood 1+ H Urine Nitrite Negative Urine Bilirubin Negative Urine Urobilinogen 0.2 07/04/17 10:10 RBC 3.48 L MCV 85.1 MCHC 33.1 RDW 14.0 D MPV 10.7 Neutrophils % No Result Required. Lymphocytes % No Result Required. - Medications Given in the ED: ED Medications Discontinued Medications Generic Name Dose Route Start Last Admin Trade Name Freq PRN Reason Stop Dose Admin Sodium Chloride 1,000 mls @ 1,000 mls/hr 07/04/17 09:46 07/04/17 10:22 Normal Saline - IV 07/04/17 10:45 1,000 mls/hr .Q1H ONE Administration <Nicci Gayle S - Last Filed: 07/06/17 11:45> Medical Decision Making - Medical Decision Making 07/04/17 09:47 ddx AMS - metabolic dernagement, ich, med interaction, will r/o organic cause of her AMS - as she is on eliquis will obtain ct to r/o bleed will obtain blood work, ua/cxr to r/o occult infection for abd pain - ?constipation - abd is distended but sof with L sided tenderness - will start with xray - consider also diverticulitis - if not full of stool, consider CT 07/04/17 09:58 awaiting results - will sign patient out to dr. Gayle to reasess and dispo the patient <Yobani Danielson - Last Filed: 07/04/17 09:58> *DC/Admit/Observation/Transfer <Yobani Danielson - Last Filed: 07/04/17 09:58> <Nicci Gayle - Last Filed: 07/06/17 11:45> Diagnosis at time of Disposition: Electrolyte imbalance, Dehydration, Hypoglycemia, Kidney stone on left side - Discharge Dispostion Condition at time of disposition: Guarded
[2017-07-04] MEDS ORDERED: SODIUM CHLORIDE 1,000 ML IV ONE (09:46)
[2017-07-04 10:51] LABS: HEMATOCRIT 29.6 % (32.4-45.2); HEMOGLOBIN 9.8 GM/dl (10.7-15.3); MCH 28.2 pg (25.7-33.7); MCHC 33.1 g/dl (32.0-36.0); MEAN CELL VOLUME 85.1 fl (80-96); MEAN PLT VOLUME 10.7 fl (7.5-11.1); PLATELET COUNT 67 K/MM3 (134-434); RBC 3.48 M/mm3 (3.60-5.2); WHITE BLOOD COUNT 17.4 K/mm3 (4.0-10.8)
[2017-07-04 11:09] LABS: URINE APPEARANCE Clear; URINE BILIRUBIN Negative (NEGATIVE); URINE GLUCOSE (UA) Negative (NEGATIVE); URINE KETONE Trace (NEGATIVE); URINE NITRITE Negative (NEGATIVE); URINE UROBILINOGEN 0.2 (0.2-1.0)
[2017-07-04 11:34] LABS: URINE BLOOD 1+ (NEGATIVE); URINE PROTEIN 2+ (NEGATIVE)
[2017-07-04 11:35] LABS: URINE COLOR YELLOW
--- NOTE | 2017-07-04 11:49 | PDOC ---
*Physical Exam - Vital Signs Last Vital Signs Temp Pulse Resp BP Pulse Ox 98.3 F 78 16 97/58 93 L 07/04/17 09:13 07/04/17 09:13 07/04/17 09:13 07/04/17 09:13 07/04/17 09:13 ED Treatment Course - LABORATORY CBC & Chemistry Diagram: 07/06/17 05:10 07/06/17 05:10 - ADDITIONAL ORDERS Additional order review: Laboratory Results 07/04/17 07/04/17 10:50 10:10 Lactic Acid 1.6 Urine Color Yellow Urine Appearance Clear Urine pH 5.0 Ur Specific [place] 1.010 Urine Protein 2+ H Urine Glucose (UA) Negative Urine Ketones Trace Urine Blood 1+ H Urine Nitrite Negative Urine Bilirubin Negative Urine Urobilinogen 0.2 07/04/17 10:10 RBC 3.48 L MCV 85.1 MCHC 33.1 RDW 14.0 D MPV 10.7 Neutrophils % No Result Required. Lymphocytes % No Result Required. - Medications Given in the ED: ED Medications Discontinued Medications Generic Name Dose Route Start Last Admin Trade Name Freq PRN Reason Stop Dose Admin Sodium Chloride 1,000 mls @ 1,000 mls/hr 07/04/17 09:46 07/04/17 10:22 Normal Saline - IV 07/04/17 10:45 1,000 mls/hr .Q1H ONE Administration Progress Note - Progress Note Progress Note: Patient endorsed to me by Dr Danielson at shift change 10 am , family in attendance. Reviewed H & P done by my colleague, agreed with. Awaiting test results. patient treated agressively for 4 hours every hour by the hour. The son present here confirmed the DNR order making her ineligible for transfer to ICU. Hypoglycemia corrected, Hyponatremia treated with iv NS, [place] levels pending. Discussed with Dr Mccain, he will be the Urologist on the case. Patient admitted to [facility] *DC/Admit/Observation/Transfer Diagnosis at time of Disposition: Electrolyte imbalance, Dehydration, Hypoglycemia, Kidney stone on left side - Discharge Dispostion Condition at time of disposition: Guarded Admit: Yes - Referrals - Patient Instructions - Post Discharge Activity
[2017-07-04] MEDS ORDERED: ACETAMINOPHEN INJECTION 100 ML IVPB ONE (12:39)
[2017-07-04 13:07] LABS: INR 1.82 (0.82-1.09); PROTHROMBIN TIME (PATIENT) 20.1 SEC (10.2-13.0)
[2017-07-04 13:40] LABS: ALBUMIN 2.2 g/dl (3.5-5.0); ALK PHOS 107 U/L (32-92); ANION GAP 11 (8-16); BILIRUBIN,TOTAL 0.7 mg/dl (0.2-1.0); BLOOD UREA NITROGEN 68 mg/dl (7-18); CALCIUM 7.1 mg/dl (8.4-10.2); CHLORIDE 94 mmol/L (98-107); CO2 14 mmol/L (22-28); CREATININE 3.6 mg/dl (0.6-1.3); GLUCOSE,RANDOM 60 mg/dl (74-106); POTASSIUM 5.3 mmol/L (3.5-5.1); SGOT/AST 38 U/L (10-42); SGPT/ALT 34 U/L (10-40)
[2017-07-04 13:45] LABS: SODIUM 119 mmol/L (136-145)
[2017-07-04] MEDS ORDERED: morphine CARPU-JECT 2 MG/1 ML DISP.SYRIN ONE (15:18)
[2017-07-04] MEDS ORDERED: morphine CARPU-JECT 2 MG/1 ML DISP.SYRIN IVPUSH ONE (15:19)
[2017-07-04] MEDS ORDERED: ACETAMINOPHEN 1000 MG/100 ML VIAL (NON FORMULARY) IVPB ONE (15:20)
[2017-07-04 15:24] LABS: ANION GAP 11 (8-16); BLOOD UREA NITROGEN 67 mg/dl (7-18); CHLORIDE 95 mmol/L (98-107); CO2 12 mmol/L (22-28); CREATININE 3.6 mg/dl (0.6-1.3); GLUCOSE,RANDOM 55 mg/dl (74-106); MAGNESIUM 1.3 mg/dL (1.8-2.4); PHOSPHOROUS 2.8 mg/dl (2.5-4.6); POTASSIUM 5.1 mmol/L (3.5-5.1)
[2017-07-04 15:28] LABS: CALCIUM 6.7 mg/dl (8.4-10.2); SODIUM 118 mmol/L (136-145)
[2017-07-04] MEDS ORDERED: MAGNESIUM SULFATE 2 GM in SODIUM CHLORIDE 100 ML IVPB ONE (16:05)
[2017-07-04] MEDS ORDERED: MAGNESIUM SULF 50% (8.12 MEQ/2 ML-1 GM VIAL) ONE (16:09)
[2017-07-04] MEDS ORDERED: HEMOQUE TEST 1 EACH EACH ONE (16:10)
[2017-07-04] MEDS ORDERED: DEXTROSE 50%-WATER 25 GM/50 ML DISP.SYRIN ONE (16:19)
[2017-07-04] MEDS ORDERED: DEXTROSE 50%-WATER - 25 GM/50 ML VIAL IVPUSH ONE (17:20)
[2017-07-04] MEDS ORDERED: ACETAMINOPHEN 325 MG TABLET (FP) PO PRN (17:22)
--- NOTE | 2017-07-04 17:33 | HP ---
CHIEF COMPLAINT: altered mental status HISTORY OF PRESENT ILLNESS:a Patient is a 87 y/o female with a past medical history of diverticulitis, hypertension, macular degeneration (legally blind), depression, and anxiety. Patient is s/p left hip replacement following a mechanical fall on 06/15/17. She was discharged from [facility] on 06/22/17. Patient's son and daugther in law report her recovery was progressing well at home. She was engaging in physical therapy at home daily. However, last week she developed worsening of left back pain and was prescribed ultram. Patient's son noticed confusion since 06/29/17 that has worsened within the past week. In addition, daughter in law reports no appetite for the past 24 hours. Patient reported to this hospital for her monthly ECT session, she was noted to have worsening mental status with tachycardia and labile blood pressure. She was referred to the emergency department for further evaluation. ER course was notable for: (1) serum sodium 119 (2) creatine 3.6 (3) ct of chest, abd/pelvis: 0.9 x 2.7 x 1.3 cm obstructing calculus at the left ureteropelvic junction Recent Travel: none PAST MEDICAL HISTORY: see hpi PAST SURGICAL HISTORY: Social History: Smoking: Alcohol: Drugs: Family History: non-contributory to this admission Allergies Penicillins Allergy (Severe, Verified 07/04/17 09:13) Hives HOME MEDICATIONS: Home Medications Medication Instructions Recorded Atenolol [Tenormin] 25 mg PO DAILY 09/15/16 Atorvastatin Ca [Lipitor] 10 mg PO HS 09/15/16 Cholecalciferol (Vitamin D3) 2,000 unit PO DAILY 09/15/16 [Vitamin D3] [place] Carbonate [Eskalith -] 150 mg PO HS 09/15/16 Losartan Potassium 100 mg PO DAILY 09/15/16 Vitamin B Complex 1 each PO DAILY 10/10/16 Metformin HCl 500 mg PO DAILY 11/29/16 Rivaroxaban [Xarelto -] 10 mg PO DAILY 07/04/17 REVIEW OF SYSTEMS CONSTITUTIONAL: Present: generalized weakness, malaise. Absent: fever, chills, diaphoresis, generalized weakness, malaise, loss of appetite, weight change HEENT: Absent: rhinorrhea, nasal congestion, throat pain, throat swelling, difficulty swallowing, mouth swelling, ear pain, eye pain, visual changes CARDIOVASCULAR: Absent: chest pain, syncope, palpitations, irregular heart rate, lightheadedness , peripheral edema RESPIRATORY: Absent: cough, shortness of breath, dyspnea with exertion, orthopnea, wheezing, stridor, hemoptysis GASTROINTESTINAL: Absent: abdominal pain, abdominal distension, nausea, vomiting, diarrhea, constipation, melena, hematochezia GENITOURINARY: Absent: dysuria, frequency, urgency, hesitancy, hematuria, flank pain, genital pain MUSCULOSKELETAL: Absent: myalgia, arthralgia, joint swelling, back pain, neck pain SKIN: Absent: rash, itching, pallor HEMATOLOGIC/IMMUNOLOGIC: Absent: easy bleeding, easy bruising, lymphadenopathy, frequent infections ENDOCRINE: Absent: unexplained weight gain, unexplained weight loss, heat intolerance, cold intolerance NEUROLOGIC: Absent: headache, focal weakness or paresthesias, dizziness, unsteady gait, seizure, mental status changes, bladder or bowel incontinence PSYCHIATRIC: Absent: anxiety, depression, suicidal or homicidal ideation, hallucinations. PHYSICAL EXAMINATION Vital Signs - 24 hr 07/04/17 07/04/17 07/04/17 09:13 12:46 14:35 Temperature 98.3 F Pulse Rate 78 Pulse Rate [ 86 76 Apical] Respiratory 18 Rate Blood Pressure 97/58 Blood Pressure 123/51 111/50 [Arm] O2 Sat by Pulse 93 L 96 96 Oximetry (%) GENERAL: Awake, alert, and oriented times person, agitated. HEAD: Normal with no signs of trauma. EYES: Pupils equal, round and reactive to light, extraocular movements intact, sclera anicteric, conjunctiva clear. No lid lag. EARS, NOSE, THROAT: Ears normal, nares patent, oropharynx clear without exudates. Moist mucous membranes. NECK: Normal range of motion, supple without lymphadenopathy, JVD, or masses. LUNGS: Breath sounds equal, clear to auscultation bilaterally. No wheezes, and no crackles. No accessory muscle use. HEART: Regular rate and rhythm, normal S1 and S2 without murmur, rub or gallop. ABDOMEN: Soft, diffuse abdominal tenderness, distended, normoactive bowel sounds , no guarding, no rebound, no masses. No hepatomegaly or splenomegaly. MUSCULOSKELETAL: Normal range of motion at all joints. No bony deformities or tenderness. No CVA tenderness. UPPER EXTREMITIES: 2+ pulses, warm, well-perfused. No cyanosis. No clubbing. No peripheral edema. LOWER EXTREMITIES: 2+ pulses, warm, well-perfused. No calf tenderness. No peripheral edema. left lateral hip: surgical site clean dry and intact, steri- strips, no erythema, no drainage noted. NEUROLOGICAL: Cranial nerves II-XII intact. Normal speech. Normal gait. PSYCHIATRIC: Cooperative. Good eye contact. Appropriate mood and affect. SKIN: Warm, dry, normal turgor, noted to lower back, no rashes or lesions noted , normal capillary refill. Laboratory Results - last 24 hr 07/04/17 07/04/17 07/04/17 10:10 10:10 10:10 WBC 17.4 H RBC 3.48 L Hgb 9.8 L D Hct 29.6 L MCV 85.1 MCH 28.2 MCHC 33.1 RDW 14.0 D Plt Count 67 L MPV 10.7 Neutrophils % No Result Required. Lymphocytes % No Result Required. PT with INR Cancelled INR Cancelled Sodium Cancelled Potassium Cancelled Chloride Cancelled Carbon Dioxide Cancelled Anion Gap Cancelled BUN Cancelled Creatinine Cancelled Creat Clearance w eGFR Cancelled POC Glucometer Random Glucose Cancelled Lactic Acid Calcium Cancelled Phosphorus Magnesium Total Bilirubin Cancelled AST Cancelled ALT Cancelled Alkaline Phosphatase Cancelled Creatine Kinase Cancelled Troponin I Cancelled Total Protein Cancelled Albumin Cancelled Urine Color Urine Appearance Urine pH Ur Specific [place] Urine Protein Urine Glucose (UA) Urine Ketones Urine Blood Urine Nitrite Urine Bilirubin Urine Urobilinogen 07/04/17 07/04/17 07/04/17 10:10 10:50 12:30 WBC RBC Hgb Hct MCV MCH MCHC RDW Plt Count MPV Neutrophils % Lymphocytes % PT with INR 20.1 H INR 1.82 H Sodium Potassium Chloride Carbon Dioxide Anion Gap BUN Creatinine Creat Clearance w eGFR POC Glucometer Random Glucose Lactic Acid 1.6 Calcium Phosphorus Magnesium Total Bilirubin AST ALT Alkaline Phosphatase Creatine Kinase Troponin I Total Protein Albumin Urine Color Yellow Urine Appearance Clear Urine pH 5.0 Ur Specific [place] 1.010 Urine Protein 2+ H Urine Glucose (UA) Negative Urine Ketones Trace Urine Blood 1+ H Urine Nitrite Negative Urine Bilirubin Negative Urine Urobilinogen 0.2 07/04/17 07/04/17 07/04/17 12:30 14:27 16:18 WBC RBC Hgb Hct MCV MCH MCHC RDW Plt Count MPV Neutrophils % Lymphocytes % PT with INR INR Sodium 119 L* D 118 L* Potassium 5.3 H D 5.1 Chloride 94 L D 95 L Carbon Dioxide 14 L D 12 L Anion Gap 11 11 BUN 68 H D 67 H Creatinine 3.6 H D 3.6 H Creat Clearance w eGFR 11.99 POC Glucometer 55 Random Glucose 60 L D 55 L Lactic Acid Calcium 7.1 L 6.7 L* Phosphorus 2.8 Magnesium 1.3 L Total Bilirubin 0.7 D AST 38 D ALT 34 Alkaline Phosphatase 107 H D Creatine Kinase Troponin I Total Protein 5.0 L D Albumin 2.2 L D Urine Color Urine Appearance Urine pH Ur Specific [place] Urine Protein Urine Glucose (UA) Urine Ketones Urine Blood Urine Nitrite Urine Bilirubin Urine Urobilinogen 07/04/17 16:47 WBC RBC Hgb Hct MCV MCH MCHC RDW Plt Count MPV Neutrophils % Lymphocytes % PT with INR INR Sodium Potassium Chloride Carbon Dioxide Anion Gap BUN Creatinine Creat Clearance w eGFR POC Glucometer 177 Random Glucose Lactic Acid Calcium Phosphorus Magnesium Total Bilirubin AST ALT Alkaline Phosphatase Creatine Kinase Troponin I Total Protein Albumin Urine Color Urine Appearance Urine pH Ur Specific [place] Urine Protein Urine Glucose (UA) Urine Ketones Urine Blood Urine Nitrite Urine Bilirubin Urine Urobilinogen ASSESSMENT/PLAN: F/E/N - regular diet-->npo after midnight for OR - replete lytes prn ppx - hold ac - scd/christine - physical therapy *lengthy discussion with sons and daughter in law, do not want mother (Blank ) to be transferred to [place] for ICU, requesting patient to stay at [place], both sons made aware that patient is critical and may detoriate resulting in , both sons verbalize understanding and request that patient to remain a DNR/DNI, paper copy is in patient''s chart dispo: require inpatient telemetry monitoring. DNR/DNI Problem List - Problem (1) Obstructive uropathy Assessment/Plan: - ct of abd/pelvis reviewed, case discussed with urologist, Dr Cárdenas, pending OR tomm for stent placement Code(s): N13.9 - OBSTRUCTIVE AND REFLUX UROPATHY, UNSPECIFIED (2) MICAELA (acute kidney injury) Assessment/Plan: - secondary to obstructive uropathy, pending OR for tomm in the AM - repeat bmp at 1999, avoid nephrotoxic agents, pending [place] level - yan cather ordered strict intake and output Code(s): N17.9 - ACUTE KIDNEY FAILURE, UNSPECIFIED (3) Depression Assessment/Plan: - monthly ECT sessions, hold lithium due to MICAELA, pending lithuim level - follow up with psychiatry as an outpatient Code(s): F32.9 - MAJOR DEPRESSIVE DISORDER, SINGLE EPISODE, UNSPECIFIED (4) Hyponatremia Assessment/Plan: - serum sodium 119, continue IV hydration, NS at 100ml/hr serial BMP, repeat BMP at 1999 - appreciate nephrology input Dr Wood Code(s): E87.1 - HYPO-OSMOLALITY AND HYPONATREMIA (5) Hypertension Code(s): I10 - ESSENTIAL (PRIMARY) HYPERTENSION (6) Leukocytosis Assessment/Plan: - wbc 17.6, pending urine and blood cultures, pylo noted on ct scan, start rocephin, monitor WBC and fever curve Code(s): D72.829 - ELEVATED WHITE BLOOD CELL COUNT, UNSPECIFIED Qualifiers: Leukocytosis type: bandemia Qualified Code(s): D72.825 - Bandemia (7) Elevated INR Assessment/Plan: - last dose of xarelto was yesterday, 07/03/17, hold all AC Code(s): R79.1 - ABNORMAL COAGULATION PROFILE Visit type - Emergency Visit Emergency Visit: Yes ED Registration Date: 07/04/17 Care time: The patient presented to the Emergency Department on the above date and was hospitalized for further evaluation of their emergent condition. - New Patient This patient is new to me today: Yes Date on this admission: 07/04/17 - Critical Care Critical Care patient: Yes Total Critical Care Time (in minutes): 45 Critical Care Statement: The care of this patient involved high complexity decision making to prevent further life threatening deterioration of the patient 's condition and/or to evaluate & treat vital organ system(s) failure or risk of failure.
[2017-07-04] MEDS ORDERED: SODIUM CHLORIDE 1,000 ML IV SCH (17:45)
[2017-07-04 17:57] LABS: EPI CELLS FEW /HPF; URINE BACTERIA MANY /hpf (NEGATIVE); URINE WBC 15-30 (0-5)
[2017-07-04 17:59] LABS: PLATELET ESTIMATE DECREASED
[2017-07-04] MEDS ORDERED: POLYETHYLENE GLYCOL 3350 119 GM BTL PO SCH (18:00)
[2017-07-04] MEDS ORDERED: diphenhydrAMINE HCL 25 MG CAPSULE (FP) PO PRN (18:12)
[2017-07-04 18:13] VITALS: BMI 25.7
[2017-07-04] MEDS ORDERED: CEFTRIAXONE 1 G/50 ML PREMIX 50 ML IVPB SCH (18:30)
--- NOTE | 2017-07-04 18:59 | CON.GU ---
Consult Consult Specialty:: Referred by:: KEHINDE Reason for Consultation:: RENAL CALCULUS - History of Present Illness History of Present Illness: I was called at approximately 6 PM today for this patient who is An 87-year-old female with history of hypertension depression anxiety whos on lithium. She come this morning for a scheduled ECT treatments. She was noted to have tachycardia and a labile blood pressure her serum sodium is 118. Over the last week percent has noted a decrease in appetite and worsening confusion. In addition she has been complaining of left sided back pain. The CAT scan done here today revealed an obstructing stone at the left ureteropelvic Junction. She has leukocytosis with a white blood cell count of 27,000 with 17% bands. Currently she is afebrile, And her blood pressure has been steady at approximately 100 systolic. Her heart rate has been in the 60s.. 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: Yes: Other Cardio/Vascular: Yes: HTN Gastrointestinal: Yes: Diverticulitis Musculoskeletal: Yes: Other (left hip replacement 06/15/17) Endocrine: Yes: Diabetes Mellitus - Past Surgical History Past Surgical History: Yes: Cholecystectomy, - Alcohol/Substance Use Hx Alcohol Use: No History of Substance Use: reports: None - Smoking History Smoking history: Former smoker Have you smoked in the past 12 months: No If you are a former smoker, when did you quit?: years ago - Social History ADL: Independent Occupation: retired History of Recent Travel: No Home Medications - Allergies Allergies/Adverse Reactions: Allergies Allergy/AdvReac Type Severity Reaction Status Date / Time Penicillins Allergy Severe Hives Verified 07/04/17 09:13 - Home Medications Home Medications: Ambulatory Orders Atenolol [Tenormin] 25 mg PO DAILY 09/15/16 Atorvastatin Ca [Lipitor] 10 mg PO HS 09/15/16 Cholecalciferol (Vitamin D3) [Vitamin D3] 2,000 unit PO DAILY 09/15/16 [place] Carbonate [Eskalith -] 150 mg PO HS 09/15/16 Losartan Potassium 100 mg PO DAILY 09/15/16 Vitamin B Complex 1 each PO DAILY 10/10/16 Metformin HCl 500 mg PO DAILY 11/29/16 Rivaroxaban [Xarelto -] 10 mg PO DAILY 07/04/17 Family Disease History - Family Disease History Family Disease History: Other: Daughter (depresssion ) Physical Exam- Vital Signs: Vital Signs Temperature 98.1 F 07/04/17 17:43 Pulse Rate 66 07/04/17 17:43 Respiratory Rate 18 07/04/17 17:43 Blood Pressure 101/40 07/04/17 17:43 O2 Sat by Pulse Oximetry (%) 97 07/04/17 17:43 Labs: CBC, BMP 07/04/17 10:10 07/04/17 14:27 Imaging - Results Cat Scan: Report Reviewed Assessment/Plan Assessment and plan: 87-year-old female with urosepsis from an obstructing kidney stone, severe hyponatremia, thrombocytopenia and acute renal failure. I spoke with the patient s son. I explained to him that normally she would need immediate decompression of her urinary system as she could become unstable and get again and this can be fatal very rapidly. Any procedure at this point would have to happen at [facility] and he refuses transfer at this time. I explained that a percutaneous nephrostomy tube would be ideal however she has low platelet count and an elevated INR of 1.82 secondary to Xarelto. Anesthesia with a retrograde stent placement carries with it severe risks again because of her poor ability to stop bleeding and neurological and cardiac risks from her severe hyponatremia The patient has a DNR order and he does not want any heroic measures taken. I offered that as she is currently hemodynamically stable that we can continue IV hydration to correct her serum sodium to a safer level, give her broad-spectrum intravenous antibiotics and reevaluate her in the morning for ureteral stent placement.. I reiterated the caveat that she may not remain stable overnight and this choice could result in her passing. He understands this. He would like to manage her conservatively overnight and we can consider options in the morning once her sodium is corrected. I have spoken about this plan with the nursing supervisor lens generating at [place] as well as Nurse Elvia Moreira who is the MANAGER UTILIZATION MANAGEMENT I also recommend nephrology, infectious disease, and neurology consultations on this patient.
[2017-07-04] MEDS ORDERED: morphine CARPU-JECT 2 MG/1 ML DISP.SYRIN IVPUSH PRN (19:26)
[2017-07-04 20:09] LABS: ANION GAP 10 (8-16); BLOOD UREA NITROGEN 67 mg/dl (7-18); CHLORIDE 94 mmol/L (98-107); CO2 15 mmol/L (22-28); CREATININE 3.6 mg/dl (0.6-1.3); GLUCOSE,RANDOM 101 mg/dl (74-106); POTASSIUM 4.7 mmol/L (3.5-5.1)
[2017-07-04 20:12] LABS: CALCIUM 6.7 mg/dl (8.4-10.2); SODIUM 119 mmol/L (136-145)
--- NOTE | 2017-07-04 21:56 | CONSULT ---
Consult Consult Specialty:: Nephrology Reason for Consultation:: MICAELA and hyponatremia - History of Present Illness Chief Complaint: change in mental status History of Present Illness: Pt is an 87 year old female with pmhx of htn, bipolar on lithium, macular degeneration, diverticulitis, and left hip fracture s/p repair who presents to the ER with altered mental status. Pt was not able o give history. Chart was reviewed and I called her son Zack Banks ([phone]) who helped with history. Pt was found to be in acute renal failure and I was called to evaluate her. She was also found to be hyperkalemic and hyponatremic. She has been taking her lithium up until now. She was also found to have an obstructing renal stone. I was called to see the pt today around 6 pm as an urgent consult. Had a long conversation with her son and the family does not want any HD therapy or aggressive measures. She will be evaluated for a cysto again in the am by urology. 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 Cardio/Vascular: Yes: HTN Gastrointestinal: Yes: Diverticulitis Psych: Yes: Bipolar Musculoskeletal: Yes: Other (left hip replacement 06/15/17) Endocrine: Yes: Diabetes Mellitus - Past Surgical History Past Surgical History: Yes: Cholecystectomy, Additional Surgical History: left hip replacement - Alcohol/Substance Use Hx Alcohol Use: No History of Substance Use: reports: None - Smoking History Smoking history: Former smoker Have you smoked in the past 12 months: No If you are a former smoker, when did you quit?: years ago - Social History ADL: Independent Occupation: retired History of Recent Travel: No Home Medications - Allergies Allergies/Adverse Reactions: Allergies Allergy/AdvReac Type Severity Reaction Status Date / Time Penicillins Allergy Severe Hives Verified 07/04/17 09:13 - Home Medications Home Medications: Ambulatory Orders Atenolol [Tenormin] 25 mg PO DAILY 09/15/16 Atorvastatin Ca [Lipitor] 10 mg PO HS 09/15/16 Cholecalciferol (Vitamin D3) [Vitamin D3] 2,000 unit PO DAILY 09/15/16 [place] Carbonate [Eskalith -] 150 mg PO HS 09/15/16 Losartan Potassium 100 mg PO DAILY 09/15/16 Vitamin B Complex 1 each PO DAILY 10/10/16 Metformin HCl 500 mg PO DAILY 11/29/16 Rivaroxaban [Xarelto -] 10 mg PO DAILY 07/04/17 Family Disease History - Family Disease History Family Disease History: Other: Daughter (depresssion ) Review of Systems Unable to obtain ROS, reason: pt is lethargic Findings/Remarks: Pt is laying in bed and is lethargic. She is unable to answer questions. Physical Exam Vital Signs: Vital Signs Temperature 98.1 F 07/04/17 17:43 Pulse Rate 66 07/04/17 17:43 Respiratory Rate 18 07/04/17 20:08 Blood Pressure 101/40 07/04/17 17:43 O2 Sat by Pulse Oximetry (%) 97 07/04/17 20:08 Constitutional: Yes: Calm Eyes: Yes: Conjunctiva Clear HENT: Yes: Atraumatic Neck: Yes: Supple Cardiovascular: Yes: S1, S2 Respiratory: Yes: CTA Bilaterally Gastrointestinal: Yes: Soft Renal/: Yes: Yan Present Musculoskeletal: Yes: Muscle Weakness Edema: No Integumentary: No: Rash Neurological: Yes: Lethargy Labs: CBC, BMP 07/04/17 10:10 07/04/17 19:30 Laboratory Tests 07/04/17 07/04/17 07/04/17 10:50 12:30 12:30 Sodium 119 L* D Potassium 5.3 H D Chloride Carbon Dioxide Anion Gap BUN Creatinine Calcium Albumin 2.2 L D Urine Protein 2+ H Urine Blood 1+ H [place] Pending 07/04/17 07/04/17 14:27 19:30 Sodium 118 L* 119 L* Potassium 4.7 Chloride 94 L Carbon Dioxide 15 L D Anion Gap 10 BUN 67 H Creatinine 3.6 H Calcium 6.7 L* 6.7 L* Albumin Urine Protein Urine Blood [place] [facility] - Results Chest X-ray: Report Reviewed Cat Scan: Report Reviewed (left obstructing renal calculus) Problem List - Problems (1) MICAELA (acute kidney injury) Code(s): N17.9 - ACUTE KIDNEY FAILURE, UNSPECIFIED (2) Dehydration Code(s): E86.0 - DEHYDRATION (3) Depression Code(s): F32.9 - MAJOR DEPRESSIVE DISORDER, SINGLE EPISODE, UNSPECIFIED (4) Electrolyte imbalance Code(s): E87.8 - OTH DISORDERS OF ELECTROLYTE AND FLUID BALANCE, NEC (5) Hypertension Code(s): I10 - ESSENTIAL (PRIMARY) HYPERTENSION (6) Hypoglycemia Code(s): E16.2 - HYPOGLYCEMIA, UNSPECIFIED (7) Hyponatremia Code(s): E87.1 - HYPO-OSMOLALITY AND HYPONATREMIA (8) Kidney stone on left side Code(s): N20.0 - CALCULUS OF KIDNEY (9) Leukocytosis Code(s): D72.829 - ELEVATED WHITE BLOOD CELL COUNT, UNSPECIFIED Qualifiers: Leukocytosis type: bandemia Qualified Code(s): D72.825 - Bandemia (10) Obstructive uropathy Code(s): N13.9 - OBSTRUCTIVE AND REFLUX UROPATHY, UNSPECIFIED Assessment/Plan Current Medications Generic Name Dose Route Start Last Admin Trade Name Freq PRN Reason Stop Dose Admin Acetaminophen 650 mg 07/04/17 17:22 Tylenol - PO Q4H PRN FEVER Diphenhydramine HCl 25 mg 07/04/17 18:12 Benadryl - PO Q6H PRN FOR ITCHING Heparin Sodium (Porcine) 5,000 unit 07/04/17 22:00 Heparin - SQ BID OSMAN Sodium Chloride 1,000 mls @ 100 mls/hr 07/04/17 17:45 07/04/17 18:49 Normal Saline - IV 100 mls/hr ASDIR OSMAN Administration CEFTRIAXONE 1 G/50 ML PREMIX 50 mls @ 100 mls/hr 07/04/17 18:30 07/04/17 18: 49 Ceftriaxone 1 Gm-D5w Bag IVPB 100 mls/hr DAILY OSMAN Administration Morphine Sulfate 1 mg 07/04/17 19:26 Morphine Injection - IVPUSH 07/05/17 19:25 Q4H PRN PAIN LEVEL 6-10 Polyethylene Glycol 17 gm 07/04/17 18:00 07/04/17 18:48 Miralax (For Daily Use) - PO 17 gm DAILY OSMAN Administration Impression 1. MICAELA 2. hyperkalemia 3. hyponatremia 4. bipolar - on lithium 5. depression 6. change in mental status 7. nephrolithiasis 8. left kidney hydronephrosis 9. sepsis 10. acidosis 11. elevated INR Plan - check plasma and urine osm - check urine lytes - d/c LR, start NS as it is isotonic - check tsh and cortisol level - urology input appreciated - recommend pt remain in a monitored setting - follow up lithium level, still pending - check urine lytes and creatinine - maintain yan - case discussed with medical team on phone earlier today - called and discussed care with pts son at length. Family do not want any HD therapy. - recommend antibiotics and ID eval - check urine and blood cultures (sent today already) - repeat sodium level - avoid nsaids - avoid nephrotoxins - discussed plan with nurse - prognosis is guarded and this was explained to family Dr Bueno
[2017-07-04] MEDS ORDERED: HEPARIN NA (PORCINE) 5,000 UNITS/ML 1ML VIAL SQ SCH (22:00)
[2017-07-04] MEDS ORDERED: CALCIUM 500MG/VIT-D 200 UNITS COMBO TABLET (FP) PO SCH (22:30)
[2017-07-05] MEDS ORDERED: morphine CARPU-JECT 2 MG/1 ML DISP.SYRIN IVPUSH ONE ×2 (00:31→03:24)
[2017-07-05 01:41] LABS: HEMATOCRIT 23.1 % (32.4-45.2); HEMOGLOBIN 7.5 GM/dL (10.7-15.3); MCH 27.2 pg (25.7-33.7); MCHC 32.3 g/dl (32.0-36.0); MEAN CELL VOLUME 84.1 fl (80-96); MEAN PLT VOLUME 9.3 fl (7.5-11.1); PLATELET COUNT 40 K/MM3 (134-434); RBC 2.74 M/mm3 (3.60-5.2); RDW 14.8 % (11.6-15.6); WHITE BLOOD COUNT 12.6 K/mm3 (4.0-10.0)
[2017-07-05 02:04] LABS: ANION GAP 15 (8-16); BLOOD UREA NITROGEN 66 mg/dL (7-18); CHLORIDE 99 mmol/L (98-107); CO2 13 mmol/L (21-32); CREATININE 3.4 mg/dL (0.55-1.02); GLUCOSE,RANDOM 64 mg/dL (74-106); POTASSIUM 4.8 mmol/L (3.5-5.1); SODIUM 127 mmol/L (136-145)
[2017-07-05 02:10] LABS: CALCIUM 6.6 mg/dL (8.5-10.1)
[2017-07-05 02:22] LABS: ACANTHOCYTES 1+; ANISOCYTOSIS 2+; MACROCYTOSIS 0; PLATELET ESTIMATE DECREASED
[2017-07-05 03:25] LABS: OSMOLALITY,URINE 246 mosm/kg (300-900)
[2017-07-05 03:26] LABS: OSMOLALITY,SERUM 275 mosm/kg (278-305)
[2017-07-05] MEDS ORDERED: DEXTROSE 5%-WATER - 1,000 ML IV SCH (07:45)
[2017-07-05 07:47] LABS: BASO % 0.1 % (0-2.0); PLATELET COUNT 35 K/MM3 (134-434); RBC 2.71 M/mm3 (3.60-5.2)
[2017-07-05 07:51] LABS: EOS % 2.8 % (0-4.5); HEMATOCRIT 23.3 % (32.4-45.2); HEMOGLOBIN 7.6 GM/dl (10.7-15.3); LYMPH % 7.9 % (8-40); MCH 28.2 pg (25.7-33.7); MCHC 32.7 g/dl (32.0-36.0); MEAN CELL VOLUME 86.1 fl (80-96); MEAN PLT VOLUME 9.2 fl (7.5-11.1); MONO % 7.5 % (3.8-10.2); NEUT % 81.7 % (42.8-82.8); RDW 14.2 % (11.6-15.6)
[2017-07-05] MEDS ORDERED: ACETAMINOPHEN 1000 MG/100 ML VIAL (NON FORMULARY) IVPB ONE (08:00)
[2017-07-05 08:15] LABS: WHITE BLOOD COUNT 14.8 K/mm3 (4.0-10.8)
[2017-07-05] MEDS ORDERED: CEFEPIME HCL 2 GM VIAL (RESTRICTED TO ID) IVPB ONE (09:08)
--- NOTE | 2017-07-05 09:13 | PN ---
Progress Note (short form) - Note Progress Note: ID Consult dictated Gram Negative bacteremia/ sepsis secondary to UTI Obstructive uropathy secondary to L nephrolith Leukocytosis/ thrombocytopenia secondary to sepsis Hyponatremia Azotemia PCN allergy Await cultures Empiric cefepime Discussed with
[2017-07-05 09:25] LABS: ACTIVATED PTT 33.4 SECONDS (24.0-38.9)
[2017-07-05 09:29] LABS: INR 1.38 (0.82-1.09); PROTHROMBIN TIME (PATIENT) 15.4 SEC (10.2-13.0)
[2017-07-05 09:57] LABS: ALBUMIN 1.8 g/dl (3.5-5.0); ALK PHOS 117 U/L (32-92); ANION GAP 14 (8-16); BILIRUBIN,TOTAL 0.6 mg/dl (0.2-1.0); BLOOD UREA NITROGEN 71 mg/dl (7-18); CHLORIDE 98 mmol/L (98-107); CO2 10 mmol/L (22-28); CREATININE 3.5 mg/dl (0.6-1.3); GLUCOSE,RANDOM 77 mg/dl (74-106); MAGNESIUM 1.9 mg/dL (1.8-2.4); PHOSPHOROUS 4.1 mg/dl (2.5-4.6); POTASSIUM 4.2 mmol/L (3.5-5.1); SGOT/AST 57 U/L (10-42); SGPT/ALT 47 U/L (10-40); TOT PROT 4.3 g/dl (6.4-8.3)
[2017-07-05 09:59] LABS: ALBUMIN 1.9 g/dl (3.5-5.0); ALK PHOS 120 U/L (32-92); ANION GAP 16 (8-16); BILIRUBIN,TOTAL 0.8 mg/dl (0.2-1.0); BLOOD UREA NITROGEN 69 mg/dl (7-18); CHLORIDE 97 mmol/L (98-107); CO2 11 mmol/L (22-28); CREATININE 3.5 mg/dl (0.6-1.3); GLUCOSE,RANDOM 62 mg/dl (74-106); POTASSIUM 4.4 mmol/L (3.5-5.1); SGOT/AST 59 U/L (10-42); SGPT/ALT 47 U/L (10-40); TOT PROT 4.1 g/dl (6.4-8.3)
[2017-07-05] MEDS ORDERED: CEFEPIME HCL 1 GM VIAL (RESTRICTED TO ID) IVPB SCH (10:00)
--- NOTE | 2017-07-05 10:12 | PN ---
Physical Exam: SUBJECTIVE: Patient seen and examined, patient is confused reports generalized body pain. OBJECTIVE:Patient is a 87 y/o female with a past medical history of diverticulitis, hypertension, macular degeneration (legally blind), depression, anxiety, s/p left hip replacement (06/15/17). Vital Signs Period Temp Pulse Resp BP Sys/Marroquin Pulse Ox Last 24 Hr 97.6 F-101.4 F 66-86 17-20 88-123/35-56 96-100 GENERAL: Awake, alert, and oriented times person and place, agitated. HEAD: Normal with no signs of trauma. EYES: Pupils equal, round and reactive to light, extraocular movements intact, sclera anicteric, conjunctiva clear. No lid lag. EARS, NOSE, THROAT: Ears normal, nares patent, oropharynx clear without exudates. Moist mucous membranes. NECK: Normal range of motion, supple without lymphadenopathy, JVD, or masses. LUNGS: Breath sounds equal, clear to auscultation bilaterally. No wheezes, and no crackles. No accessory muscle use. HEART: Regular rate and rhythm, normal S1 and S2 without murmur, rub or gallop. ABDOMEN: Soft, diffuse abdominal tenderness, distended, normoactive bowel sounds , no guarding, no rebound, no masses. No hepatomegaly or splenomegaly. : yan cather, cloudy urine MUSCULOSKELETAL: Normal range of motion at all joints. No bony deformities or tenderness. No CVA tenderness. UPPER EXTREMITIES: 2+ pulses, warm, well-perfused. No cyanosis. No clubbing. No peripheral edema. LOWER EXTREMITIES: 2+ pulses, warm, well-perfused. No calf tenderness. No peripheral edema. left lateral hip: surgical site clean dry and intact, steri- strips, no erythema, no drainage noted. NEUROLOGICAL: Cranial nerves II-XII intact. Normal speech. Normal gait. PSYCHIATRIC: Cooperative. Good eye contact. Appropriate mood and affect. SKIN: Warm, dry, normal turgor, noted to lower back, no rashes or lesions noted , normal capillary refill. Laboratory Results - last 24 hr CBC WBC 14.8 K/mm3 (4.0-10.8) H 07/05/17 06:30 RBC 2.71 M/mm3 (3.60-5.2) L D 07/05/17 06:30 Hgb 7.6 GM/dl (10.7-15.3) L D 07/05/17 06:30 Hct 23.3 % (32.4-45.2) L D 07/05/17 06:30 MCV 86.1 fl (80-96) 07/05/17 06:30 MCH 28.2 pg (25.7-33.7) 07/05/17 06:30 MCHC 32.7 g/dl (32.0-36.0) 07/05/17 06:30 RDW 14.2 % (11.6-15.6) 07/05/17 06:30 Plt Count 35 K/MM3 (134-434) L* 07/05/17 06:30 MPV 9.2 fl (7.5-11.1) 07/05/17 06:30 Neutrophils % 81.7 % (42.8-82.8) 07/05/17 06:30 Neutrophils % (Manual) 85.1 % (42.8-82.8) H 07/05/17 01:20 Band Neutrophils % 5.0 % 07/05/17 01:20 Lymphocytes % 7.9 % (8-40) L 07/05/17 06:30 Lymphocytes % (Manual) 3.0 % (8-40) L 07/05/17 01:20 Monocytes % 7.5 % (3.8-10.2) 07/05/17 06:30 Monocytes % (Manual) 6 % (3.8-10.2) 07/05/17 01:20 Eosinophils % 2.8 % (0-4.5) 07/05/17 06:30 Eosinophils % (Manual) 0.0 % (0-4.5) 07/05/17 01:20 Basophils % 0.1 % (0-2.0) 07/05/17 06:30 Basophils % (Manual) 0.0 % (0-2.0) 07/05/17 01:20 Myelocytes % (Man) 0 % (0-2) 07/05/17 01:20 Metamyelocytes 1 % (0-2) 07/05/17 01:20 Hypochromia 1+ 07/05/17 01:20 Platelet Estimate Decreased 07/05/17 01:20 Polychromasia 1+ 07/05/17 01:20 Poikilocytosis 3+ 07/05/17 01:20 Anisocytosis 2+ 07/05/17 01:20 Microcytosis 2+ 07/05/17 01:20 Macrocytosis 0 07/05/17 01:20 [place] Cells 2+ 07/05/17 01:20 Acanthocytes (Spur) 1+ 07/05/17 01:20 CMP Sodium 122 mmol/L (136-145) L* 07/05/17 08:55 Potassium 4.2 mmol/L (3.5-5.1) 07/05/17 08:55 Chloride 98 mmol/L (98-107) 07/05/17 08:55 Carbon Dioxide 10 mmol/L (22-28) L 07/05/17 08:55 Anion Gap 14 (8-16) 07/05/17 08:55 BUN 71 mg/dl (7-18) H 07/05/17 08:55 Creatinine 3.5 mg/dl (0.6-1.3) H 07/05/17 08:55 Creat Clearance w eGFR 12.38 (>60) 07/05/17 08:55 POC Glucometer 67 UNITS (80-120) 07/05/17 07:39 Random Glucose 77 mg/dl (74-106) D 07/05/17 08:55 Serum Osmolality 275 mosm/kg (278-305) L 07/04/17 23:00 Lactic Acid 1.6 mmol/L (0.0-2.0) 07/04/17 10:10 Calcium 6.6 mg/dl (8.4-10.2) L* 07/05/17 08:55 Phosphorus 4.1 mg/dl (2.5-4.6) D 07/05/17 08:55 Magnesium 1.9 mg/dL (1.8-2.4) 07/05/17 08:55 Total Bilirubin 0.6 mg/dl (0.2-1.0) 07/05/17 08:55 AST 57 U/L (10-42) H 07/05/17 08:55 ALT 47 U/L (10-40) H 07/05/17 08:55 Alkaline Phosphatase 117 U/L (32-92) H 07/05/17 08:55 Creatine Kinase Cancelled 07/04/17 10:10 Troponin I Cancelled 07/04/17 10:10 Total Protein 4.3 g/dl (6.4-8.3) L 07/05/17 08:55 Albumin 1.8 g/dl (3.5-5.0) L 07/05/17 08:55 Active Medications Generic Name Dose Route Start Last Admin Trade Name Freq PRN Reason Stop Dose Admin Acetaminophen 650 mg 07/04/17 17:22 Tylenol - PO Q4H PRN FEVER Calcium Carbonate/Cholecalciferol 1 tab 07/04/17 22:30 07/05/17 03:43 Os-Leo 500+D - PO Not Given DAILY [facility] Cefepime HCl 1 gm 07/05/17 22:00 Maxipime 1 Gm Premix Ivpb IVPB BID [facility] Chlorhexidine Gluconate 1 applic 07/05/17 22:00 Hibiclens For Decolonization - TP HS OSMAN Diphenhydramine HCl 25 mg 07/04/17 18:12 Benadryl - PO Q6H PRN FOR ITCHING Sodium Chloride 1,000 mls @ 75 mls/hr 07/05/17 11:00 Normal Saline - IV ASDIR OSMAN Morphine Sulfate 1 mg 07/04/17 19:26 Morphine Injection - IVPUSH 07/05/17 19:25 Q4H PRN PAIN LEVEL 6-10 Mupirocin 1 applic 07/05/17 22:00 Bactroban Ointment (For Decolonization) - NS 07/10/17 21:59 BID [facility] Polyethylene Glycol 17 gm 07/04/17 18:00 07/04/17 18:48 Miralax (For Daily Use) - PO 17 gm DAILY [facility] Administration Microbiology 07/04/17 12:30 Blood - Peripheral Venous Blood Culture - Preliminary Pending Organism 07/04/17 12:30 Blood - Peripheral Venous Blood Culture - Preliminary Pending Organism IMAGING ct of chest/abd/pelvis: 0.9 x 2.7 x 1.3 cm obstructing calculus at the left ureteropelvic junction ASSESSMENT/PLAN: 1) ID sepsis bacteremia -likely secondary to UTI, rocephin (07/05) and cefepime (07/06 - ), pending echo - Dr Frias consulted and following 2) obstructive uropathy - pending OR today for left ureter stent placement - continue yan cather - urology, Dr Cárdenas consulted and following acute kidney injury - secondary to obstructive uropathy - repeat bmp at 1600 3) cardiovascular hypertension - hold all home medications, labile blood pressure - q4h b/p monitoring 4) psych depression - lithium level wnl, hold lithium due to MICAELA - follow up with psychiatry as outpatient 4) F/E/N hyponatremia -repeat serum sodium 122, change IV to NS @ 75ml/hr repeat bmp 1600 - nephrology, Dr Wood consulted and following - npo pending OR today ppx - hold ac - scd/christine - physical therapy dispo: require inpatient telemetry monitoring. DNR/DNI Problem List - Problems (1) Obstructive uropathy Code(s): N13.9 - OBSTRUCTIVE AND REFLUX UROPATHY, UNSPECIFIED (2) MICAELA (acute kidney injury) Code(s): N17.9 - ACUTE KIDNEY FAILURE, UNSPECIFIED (3) Depression Code(s): F32.9 - MAJOR DEPRESSIVE DISORDER, SINGLE EPISODE, UNSPECIFIED (4) Hyponatremia Code(s): E87.1 - HYPO-OSMOLALITY AND HYPONATREMIA (5) Hypertension Code(s): I10 - ESSENTIAL (PRIMARY) HYPERTENSION (6) Leukocytosis Code(s): D72.829 - ELEVATED WHITE BLOOD CELL COUNT, UNSPECIFIED Qualifiers: Leukocytosis type: bandemia Qualified Code(s): D72.825 - Bandemia (7) Elevated INR Code(s): R79.1 - ABNORMAL COAGULATION PROFILE Visit type - Emergency Visit Emergency Visit: Yes ED Registration Date: 07/04/17 Care time: The patient presented to the Emergency Department on the above date and was hospitalized for further evaluation of their emergent condition. - New Patient This patient is new to me today: No - Critical Care Critical Care patient: No - Discharge Referral Referred to [facility] Med P.C.: No
--- NOTE | 2017-07-05 10:24 | PN ---
Progress Note, Physician History of Present Illness: Pt seen and examined at bedside. She remains lethargic. Care was discussed with her sons who are at bedside. She is going for cysto today and stent placement. - Current Medication List Current Medications: Active Medications Acetaminophen (Tylenol -) 650 mg PO Q4H PRN PRN Reason: FEVER Calcium Carbonate/Cholecalciferol (Os-Leo 500+D -) 1 tab PO DAILY [facility] Last Admin: 07/05/17 03:43 Dose: Not Given Cefepime HCl (Maxipime 1 Gm Premix Ivpb) 1 gm IVPB BID [facility] Diphenhydramine HCl (Benadryl -) 25 mg PO Q6H PRN PRN Reason: FOR ITCHING Dextrose (D5w -) 1,000 mls @ 50 mls/hr IV ASDIR [facility] Last Admin: 07/05/17 08:00 Dose: 50 mls/hr Morphine Sulfate (Morphine Injection -) 1 mg IVPUSH Q4H PRN PRN Reason: PAIN LEVEL 6-10 Stop: 07/05/17 19:25 Polyethylene Glycol (Miralax (For Daily Use) -) 17 gm PO DAILY [facility] Last Admin: 07/04/17 18:48 Dose: 17 gm - Objective Vital Signs: Vital Signs Temperature 98.4 F 07/05/17 09:20 Pulse Rate 67 07/05/17 09:20 Respiratory Rate 17 07/05/17 09:20 Blood Pressure 94/35 07/05/17 09:20 O2 Sat by Pulse Oximetry (%) 97 07/05/17 03:35 Constitutional: Yes: Calm, Mild Distress Cardiovascular: Yes: S1, S2 Respiratory: Yes: CTA Bilaterally, On Nasal O2 Gastrointestinal: Yes: Soft Genitourinary: Yes: Johnson Present Musculoskeletal: Yes: Muscle Weakness Edema: No Integumentary: No: Rash Neurological: Yes: Lethargy Labs: CBC, BMP 07/05/17 06:30 INR, PTT INR 1.38 (0.82-1.09) H 07/05/17 08:55 Problem List - Problems (1) MICAELA (acute kidney injury) Code(s): N17.9 - ACUTE KIDNEY FAILURE, UNSPECIFIED (2) Dehydration Code(s): E86.0 - DEHYDRATION (3) Depression Code(s): F32.9 - MAJOR DEPRESSIVE DISORDER, SINGLE EPISODE, UNSPECIFIED (4) Electrolyte imbalance Code(s): E87.8 - OTH DISORDERS OF ELECTROLYTE AND FLUID BALANCE, NEC (5) Hypertension Code(s): I10 - ESSENTIAL (PRIMARY) HYPERTENSION (6) Hypoglycemia Code(s): E16.2 - HYPOGLYCEMIA, UNSPECIFIED (7) Hyponatremia Code(s): E87.1 - HYPO-OSMOLALITY AND HYPONATREMIA (8) Kidney stone on left side Code(s): N20.0 - CALCULUS OF KIDNEY (9) Leukocytosis Code(s): D72.829 - ELEVATED WHITE BLOOD CELL COUNT, UNSPECIFIED Qualifiers: Leukocytosis type: bandemia Qualified Code(s): D72.825 - Bandemia (10) Obstructive uropathy Code(s): N13.9 - OBSTRUCTIVE AND REFLUX UROPATHY, UNSPECIFIED Assessment/Plan Current Medications Generic Name Dose Route Start Last Admin Trade Name Freq PRN Reason Stop Dose Admin Acetaminophen 650 mg 07/04/17 17:22 Tylenol - PO Q4H PRN FEVER Calcium Carbonate/Cholecalciferol 1 tab 07/04/17 22:30 07/05/17 03:43 Os-Leo 500+D - PO Not Given DAILY [facility] Cefepime HCl 1 gm 07/05/17 22:00 Maxipime 1 Gm Premix Ivpb IVPB BID [facility] Diphenhydramine HCl 25 mg 07/04/17 18:12 Benadryl - PO Q6H PRN FOR ITCHING Dextrose 1,000 mls @ 50 mls/hr 07/05/17 07:45 07/05/17 08:00 D5w - IV 50 mls/hr ASDIR OSMAN Administration Morphine Sulfate 1 mg 07/04/17 19:26 Morphine Injection - IVPUSH 07/05/17 19:25 Q4H PRN PAIN LEVEL 6-10 Polyethylene Glycol 17 gm 07/04/17 18:00 07/04/17 18:48 Miralax (For Daily Use) - PO 17 gm DAILY OSMAN Administration Laboratory Tests 07/04/17 07/05/17 07/05/17 19:30 01:20 06:30 Sodium 119 L* 127 L Pending 07/05/17 08:55 Sodium Pending Laboratory Tests 07/04/17 12:30 [place] 0.8 Laboratory Tests 07/04/17 07/04/17 23:00 23:27 Serum Osmolality 275 L Urine Osmolality 246 L Ur Random Sodium 22 Impression 1. MICAELA 2. hyperkalemia 3. hyponatremia 4. bipolar - on lithium 5. depression 6. change in mental status 7. nephrolithiasis 8. left kidney hydronephrosis 9. sepsis 10. acidosis 11. elevated INR 12. thrombocytopenia Plan - discussed with nurse last night - repeat sodium was 127 so we switched fluids to d5w to prevent rapid rise of sodium - can switch back to ns - 2 sodium levels from this morning are still pending - discussed with family - discussed with medical team - continue to monitor renal function - follow cultures - repeat bmp - heme eval for thrombocytopenia - consider transfer to ICU - micaela likely from pre-renal disease and obstruction - workup in progress - maintain Alex Bueno
[2017-07-05 10:33] LABS: SODIUM 122 mmol/L (136-145)
[2017-07-05 10:34] LABS: CALCIUM 6.6 mg/dl (8.4-10.2)
[2017-07-05 10:35] LABS: CALCIUM 6.7 mg/dl (8.4-10.2); SODIUM 124 mmol/L (136-145)
[2017-07-05] MEDS ORDERED: PROPOFOL 20 ML ONE (10:57)
[2017-07-05] MEDS ORDERED: ETOMIDATE 20 MG/10 ML AMPUL IVPUSH ONE (10:57)
[2017-07-05] MEDS ORDERED: SODIUM CHLORIDE 1,000 ML IV SCH ×3 (11:00→23:11)
[2017-07-05] MEDS ORDERED: MAGNESIUM SULF 50% (8.12 MEQ/2 ML-1 GM VIAL) IVPB ONE (11:05)
[2017-07-05] MEDS ORDERED: MAGNESIUM 1GM/D5W - 1 GM/100 ML IVPB IVPB ONE ×2 (11:30→17:00)
[2017-07-05] MEDS ORDERED: ePHEDrine SULFATE 50 MG/1 ML AMPULE ONE (11:47)
--- NOTE | 2017-07-05 11:48 | OP ---
Operative Note - Note: Operative Date: 07/05/17 Operation: left ureteral stent placement Surgeon: Farhan Armstrong
[2017-07-05 15:28] LABS: BASO % 0.1 % (0-2.0); EOS % 2.8 % (0-4.5); HEMATOCRIT 23.6 % (32.4-45.2); HEMOGLOBIN 7.7 GM/dl (10.7-15.3); MCHC 32.7 g/dl (32.0-36.0); MEAN CELL VOLUME 85.4 fl (80-96); MEAN PLT VOLUME 7.6 fl (7.5-11.1); MONO % 3.7 % (3.8-10.2); NEUT % 91.4 % (42.8-82.8); PLATELET COUNT 80 K/MM3 (134-434); RBC 2.76 M/mm3 (3.60-5.2); RDW 14.5 % (11.6-15.6); WHITE BLOOD COUNT 15.8 K/mm3 (4.0-10.8)
[2017-07-05 15:40] LABS: ALBUMIN 1.9 g/dl (3.5-5.0); ALK PHOS 124 U/L (32-92); ANION GAP 14 (8-16); BILIRUBIN,TOTAL 0.7 mg/dl (0.2-1.0); BLOOD UREA NITROGEN 70 mg/dl (7-18); CHLORIDE 99 mmol/L (98-107); CO2 11 mmol/L (22-28); CREATININE 3.4 mg/dl (0.6-1.3); GLUCOSE,RANDOM 85 mg/dl (74-106); POTASSIUM 3.7 mmol/L (3.5-5.1); SGOT/AST 60 U/L (10-42); SGPT/ALT 49 U/L (10-40); TOT PROT 4.4 g/dl (6.4-8.3)
[2017-07-05 15:53] LABS: CALCIUM 6.5 mg/dl (8.4-10.2); SODIUM 124 mmol/L (136-145)
[2017-07-05] MEDS ORDERED: CALCIUM CHLORIDE 1 GM/10 ML *DISP.SYRIN ONE (15:55)
--- NOTE | 2017-07-05 16:41 | OP ---
DATE OF OPERATION: 07/05/2017 PREOPERATIVE DIAGNOSIS: Left ureteral calculus, left hydronephrosis, sepsis, urinary tract infection. POSTOPERATIVE DIAGNOSIS: Left ureteral calculus, left hydronephrosis, sepsis, urinary tract infection. PROCEDURE: Cystoscopy, left retrograde polygram, left ureteral stent placement. ANESTHESIA: IV sedation. ANESTHESIOLOGIST: Bay Hernandez M.D. FINDINGS: Left side hydronephrosis and pyonephrosis. DRAINS: 6 x 24 Double J ureteral stent, and a 16 [place] Johnson catheter SURGEON: Farhan Armstrong M.D. PREOPERATIVE INDICATION: The patient is an 87-year-old female who has sepsis from obstructing left ureteral stone. She came to the OR for stent placement. DESCRIPTION OF PROCEDURE: The patient is brought to the OR, placed on the table in supine position, given general anesthesia, placed in the modified lithotomy position. The groin is prepped and draped sterilely. Timeout is performed. Cystoscopy was performed. Urethra was normal. Bladder was unremarkable. UO was visualized. The wire was passed up into the left ureter. It could not pass the area where the stone was. An open-end catheter was left in place and a flexible wire was placed. This went to the upper pole of the kidney. An open-end catheter was then placed in the kidney itself, and the polygram was performed. This the system and showed hydronephrosis. The PTFE wire was replaced and over that a 6 x 24 Double J ureteral stent was placed. One loop of the stent was seen in the renal pelvis, and one loop in the bladder. A Johnson catheter was left in place. The patient was woken up. Lamar [id number]
[2017-07-05] MEDS ORDERED: ACETAMINOPHEN 325 MG TABLET (FP) PO PRN (16:53)
[2017-07-05] MEDS ORDERED: morphine CARPU-JECT 2 MG/1 ML DISP.SYRIN IVPUSH PRN (16:53)
[2017-07-05] MEDS ORDERED: diphenhydrAMINE HCL 25 MG CAPSULE (FP) PO PRN (16:53)
--- NOTE | 2017-07-05 21:01 | CONSULT ---
Consult Consult Specialty:: Pulmonary Critical Care Reason for Consultation:: Renal failure, AMS - History of Present Illness Chief Complaint: AMS, back pain History of Present Illness: Pt is a 87 yo female with h/o diverticulitis, HTN, depression, anxiety, who most recently had L hip replacement following a mechanical fall on 06/15. She was discharged on and was doing well until about a week ago when she developed worsening L back pain as well as worsening mental status. On 07/04 she presented for her monthly ECT session however was noted to be altered with unstable hemodynamics (labile BP and tachycardia) and was referred to ED for evaluation. Her initial labs were notable for WBC 17.4, Hgb 9.8, Plt 67, Lactate 1.6, Na 118, Cr 3.6, K 5.3. CT A/P revealed obstructing calculus at the left ureteropelvic junction. Pt now growing Gram negative bacilli in her bloodstream. Being treated with Cefepime. Urology has been following. Pt now s/ p L ureteral stent placement. Her most recent labs notable for Na 124 (recd NS and then D5W), Cr 3.6, Plt 35, Hgb 7.5. She is admitted to ICU for further management. Active Medications Acetaminophen (Tylenol -) 650 mg PO Q4H PRN PRN Reason: FEVER Calcium Carbonate/Cholecalciferol (Os-Leo 500+D -) 1 tab PO DAILY OSMAN Cefepime HCl (Maxipime 1 Gm Premix Ivpb) 1 gm IVPB BID OSMAN Chlorhexidine Gluconate (Hibiclens For Decolonization -) 1 applic TP HS OSMAN Diphenhydramine HCl (Benadryl -) 25 mg PO Q6H PRN PRN Reason: FOR ITCHING Fentanyl (Sublimaze Injection -) 25 mcg IVPUSH Q5M PRN PRN Reason: PAIN-PACU ORDER X 4 DOSES ONLY Last Admin: 07/05/17 16:00 Dose: 25 mcg Sodium Chloride (Normal Saline -) 1,000 mls @ 75 mls/hr IV ASDIR OSMAN Last Admin: 07/05/17 19:20 Dose: 75 mls/hr Famotidine/Sodium Chloride (Pepcid 20 Mg Premixed Ivpb -) 20 mg in 50 mls @ 144 mls/hr IVPB BID OSMAN Mupirocin (Bactroban Ointment (For Decolonization) -) 1 applic NS BID OSMAN Stop: 07/10/17 21:59 Polyethylene Glycol (Miralax (For Daily Use) -) 17 gm PO DAILY [facility] - Past Medical History [employer]EL[employer] CONSULTANT: Yes: Other Cardio/Vascular: Yes: HTN Gastrointestinal: Yes: Diverticulitis Psych: Yes: Bipolar Musculoskeletal: Yes: Other (left hip replacement 06/15/17) Endocrine: Yes: Diabetes Mellitus - Past Surgical History Past Surgical History: Yes: Cholecystectomy, Additional Surgical History: left hip replacement - Alcohol/Substance Use Hx Alcohol Use: No History of Substance Use: reports: None - Smoking History Smoking history: Former smoker Have you smoked in the past 12 months: No If you are a former smoker, when did you quit?: years ago - Social History ADL: Independent Occupation: retired History of Recent Travel: No Home Medications - Allergies Allergies/Adverse Reactions: Allergies Allergy/AdvReac Type Severity Reaction Status Date / Time Penicillins Allergy Severe Hives Verified 07/04/17 09:13 - Home Medications Home Medications: Ambulatory Orders Atenolol [Tenormin] 25 mg PO DAILY 09/15/16 Atorvastatin Ca [Lipitor] 10 mg PO HS 09/15/16 Cholecalciferol (Vitamin D3) [Vitamin D3] 2,000 unit PO DAILY 09/15/16 Ariton Carbonate [Eskalith -] 150 mg PO HS 09/15/16 Losartan Potassium 100 mg PO DAILY 09/15/16 Vitamin B Complex 1 each PO DAILY 10/10/16 Metformin HCl 500 mg PO DAILY 11/29/16 Rivaroxaban [Xarelto -] 10 mg PO DAILY 07/04/17 Family Disease History - Family Disease History Family Disease History: Other: Daughter (depresssion ) Physical Exam Vital Signs: Vital Signs Temperature 98.1 F 07/05/17 18:52 Pulse Rate 66 07/05/17 20:00 Respiratory Rate 18 07/05/17 20:00 Blood Pressure 116/57 07/05/17 20:00 O2 Sat by Pulse Oximetry (%) 89 L 07/05/17 18:54 Eyes: Yes: Conjunctiva Clear HENT: Yes: WNL Cardiovascular: Yes: Regular Rate and Rhythm, S1, S2 Respiratory: Yes: CTA Bilaterally Gastrointestinal: Yes: Other (softly distended, diffusely tender to palpation, + BS) Edema: No Neurological: Yes: Confusion (awake to voice, confused) Labs: CBC, BMP 07/05/17 16:00 07/05/17 15:11 CBCD WBC 15.8 K/mm3 (4.0-10.8) H 07/05/17 16:00 RBC 2.76 M/mm3 (3.60-5.2) L 07/05/17 16:00 Hgb 7.7 GM/dl (10.7-15.3) L 07/05/17 16:00 Hct 23.6 % (32.4-45.2) L 07/05/17 16:00 MCV 85.4 fl (80-96) 07/05/17 16:00 MCHC 32.7 g/dl (32.0-36.0) 07/05/17 16:00 RDW 14.5 % (11.6-15.6) 07/05/17 16:00 Plt Count 80 K/MM3 (134-434) L 07/05/17 16:00 MPV 7.6 fl (7.5-11.1) 07/05/17 16:00 CMP Sodium 124 mmol/L (136-145) L* 07/05/17 15:11 Potassium 3.7 mmol/L (3.5-5.1) 07/05/17 15:11 Chloride 99 mmol/L (98-107) 07/05/17 15:11 Carbon Dioxide 11 mmol/L (22-28) L 07/05/17 15:11 Anion Gap 14 (8-16) 07/05/17 15:11 BUN 70 mg/dl (7-18) H 07/05/17 15:11 Creatinine 3.4 mg/dl (0.6-1.3) H 07/05/17 15:11 Creat Clearance w eGFR 12.81 (>60) 07/05/17 15:11 Calcium 6.5 mg/dl (8.4-10.2) L* 07/05/17 15:11 Total Bilirubin 0.7 mg/dl (0.2-1.0) 07/05/17 15:11 AST 60 U/L (10-42) H 07/05/17 15:11 ALT 49 U/L (10-40) H 07/05/17 15:11 Alkaline Phosphatase 124 U/L (32-92) H 07/05/17 15:11 Total Protein 4.4 g/dl (6.4-8.3) L 07/05/17 15:11 Albumin 1.9 g/dl (3.5-5.0) L 07/05/17 15:11 Imaging - Results Chest X-ray: Report Reviewed Cat Scan: Report Reviewed Problem List - Problems (1) MICAELA (acute kidney injury) Code(s): N17.9 - ACUTE KIDNEY FAILURE, UNSPECIFIED (2) Dehydration Code(s): E86.0 - DEHYDRATION (3) Depression Code(s): F32.9 - MAJOR DEPRESSIVE DISORDER, SINGLE EPISODE, UNSPECIFIED (4) Elevated INR Code(s): R79.1 - ABNORMAL COAGULATION PROFILE (5) Hypoglycemia Code(s): E16.2 - HYPOGLYCEMIA, UNSPECIFIED (6) Kidney stone on left side Code(s): N20.0 - CALCULUS OF KIDNEY (7) Leukocytosis Code(s): D72.829 - ELEVATED WHITE BLOOD CELL COUNT, UNSPECIFIED Qualifiers: Leukocytosis type: bandemia Qualified Code(s): D72.825 - Bandemia (8) Obstructive uropathy Code(s): N13.9 - OBSTRUCTIVE AND REFLUX UROPATHY, UNSPECIFIED Assessment/Plan MICAELA in the setting of obstructive uropathy +/- decreased PO intake L kidney hydronephrosis/neprolithiasis s/p L ureteral stent placement Gr neg bacilli bacteremia presumably in the setting of UTI Hyponatremia likely hypovolemic AMS likely in the setting of hyponatremia +/- sepsis Anemia Thrombocytopenia -urology following -cont to monitor UO and SCr -no acute indications for dialysis at this time -cont maintenance fluids -serial BMPs to monitor Na -cont Cefepime -f/u blood cx speciation -send surveillance cultures today -c/u urine cx -normal transfusion thresholds -pepcid for GI ppx -venodynes (no heparin given thrombocytopenia) -supplemental O2 as needed -pt DNR/DNI CHARITO Jarrett Critical Care time: 45 min
[2017-07-05] MEDS: MUPIROCIN 2% TOPICAL OINTMENT FOR DECOLONIZATION NS SCH (21:26)
[2017-07-05] MEDS: CHLORHEXIDINE GLUCONATE 4% CLEANSER FOR DECOLONIZATION TP SCH (21:27)
[2017-07-05] MEDS: FAMOTIDINE 20 MG/50 ML IVPB 20 MG/50 ML MG IVPB SCH (21:31)
[2017-07-05] MEDS ORDERED: CEFEPIME HCL/D5W 1 GM/50 ML PREMIX BAG IVPB SCH ×2 (22:00)
[2017-07-05] MEDS ORDERED: morphine CARPU-JECT 10 MG/1 ML DISP.SYRIN IVPUSH PRN (22:12)
[2017-07-05] MEDS ORDERED: morphine CARPU-JECT 8 MG/1 ML DISP.SYRIN ONE (22:14)
[2017-07-05 22:37] LABS: ANION GAP 14 (8-16); BLOOD UREA NITROGEN 71 mg/dL (7-18); CALCIUM 7.5 mg/dL (8.5-10.1); CHLORIDE 102 mmol/L (98-107); CO2 13 mmol/L (21-32); CREATININE 3.4 mg/dL (0.55-1.02); GLUCOSE,RANDOM 80 mg/dL (74-106); POTASSIUM 3.7 mmol/L (3.5-5.1); SODIUM 129 mmol/L (136-145)
[2017-07-06 06:44] LABS: HEMATOCRIT 23.1 % (32.4-45.2); HEMOGLOBIN 7.5 GM/dL (10.7-15.3); MCH 27.5 pg (25.7-33.7); MCHC 32.6 g/dl (32.0-36.0); MEAN CELL VOLUME 84.5 fl (80-96); MEAN PLT VOLUME 8.6 fl (7.5-11.1); PLATELET COUNT 57 K/MM3 (134-434); RBC 2.73 M/mm3 (3.60-5.2); RDW 15.5 % (11.6-15.6)
[2017-07-06 07:11] LABS: ALBUMIN 1.6 g/dl (3.4-5.0); ANION GAP 15 (8-16); BLOOD UREA NITROGEN 73 mg/dL (7-18); CALCIUM 7.2 mg/dL (8.5-10.1); CHLORIDE 104 mmol/L (98-107); CO2 13 mmol/L (21-32); GLUCOSE,RANDOM 51 mg/dL (74-106); SGOT/AST 117 U/L (15-37); SODIUM 132 mmol/L (136-145)
[2017-07-06 07:14] LABS: ALK PHOS 247 U/L (45-117); BILIRUBIN,TOTAL 1.2 mg/dL (0.2-1.0); CREATININE 3.1 mg/dL (0.55-1.02); SGPT/ALT 96 U/L (12-78); TOT PROT 4.3 g/dl (6.4-8.2)
--- NOTE | 2017-07-06 07:24 | PN ---
Physical Exam: SUBJECTIVE: Patient seen and examined. Received 50% dextrose for hypoglycemia this am. Mental status hard to assess from baseline. Also received a 500ml bolus of normal saline for hypotension this am that was fluid responsive. OBJECTIVE: Vital Signs Period Temp Pulse Resp BP Sys/Marroquin Pulse Ox Last 24 Hr 97.4 F-100.1 F 64-81 11-20 87-129/33-65 89-100 Vital Signs Temp 98.7 F 07/06/17 06:00 Pulse 64 07/06/17 06:00 Resp 16 07/06/17 06:00 BP 87/40 07/06/17 06:00 Pulse Ox 100 07/05/17 21:00 Intake & Output 07/05/17 07/05/17 07/06/17 11:59 23:59 11:59 Intake Total 700 2550 350 Output Total 100 470 250 Balance 600 2080 100 Weight 67.132 kg Intake: IV 700 1550 350 Normal Saline - 1,000 ml 300 @ 100 mls/hr IV ASDIR OSMAN Rx#:[id number] Normal Saline - 1,000 ml 50 350 @ 50 mls/hr IV ASDIR OSMAN Rx#:[id number] Normal Saline - 1,000 ml 300 @ 75 mls/hr IV ASDIR OSMAN Rx#:[id number] IVPB 200 Oral 0 Blood Product 800 Output: Urine 100 470 250 Johnson 100 150 250 Other: Voiding Method Indwelling Catheter Indwelling Catheter Indwelling Catheter Weight Measurement Method Built [facility] GENERAL: The patient is awake, but lethargic. HEAD: Normal with no signs of trauma. EYES: Not opening eyes to command, although awake . ENT: Venturi mask, was off this am while she slept and she was sating around 89% . NECK: supple. LUNGS: Breath sounds reduced lung bases HEART: Regular rate and rhythm, S1, S2 without murmur, rub or gallop. ABDOMEN: Soft, nontender, nondistended, reduced bowel sounds, EXTREMITIES: 2+ pulses, warm, well-perfused, bilateral SCDs. NEUROLOGICAL: Lethargic, monosyllabic, able to move all limbs, gait not observed PSYCH: Withdrawn Lines:Johnson, R arterial line, RUE peripheral line, venturimask Laboratory Results - last 24 hr 01/16/18 01/17/18 01/17/18 12:30 06:30 06:30 WBC 14.8 H RBC 2.71 L D Hgb 7.6 L D Hct 23.3 L D MCV 86.1 MCH 28.2 MCHC 32.7 RDW 14.2 Plt Count 35 L* MPV 9.2 Neutrophils % 81.7 Lymphocytes % 7.9 L Monocytes % 7.5 Eosinophils % 2.8 Basophils % 0.1 PT with INR INR PTT (Actin FS) Sodium 124 L* Potassium 4.4 Chloride 97 L Carbon Dioxide 11 L D Anion Gap 16 BUN 69 H Creatinine 3.5 H Creat Clearance w eGFR 12.38 POC Glucometer Random Glucose 62 L D Calcium 6.7 L* Phosphorus Magnesium Total Bilirubin 0.8 AST 59 H D ALT 47 H D Alkaline Phosphatase 120 H Total Protein 4.1 L Albumin 1.9 L [place] 0.8 Blood Type Antibody Screen Crossmatch 07/05/17 07/05/17 07/05/17 07:39 08:42 08:50 WBC RBC Hgb Hct MCV MCH MCHC RDW Plt Count MPV Neutrophils % Lymphocytes % Monocytes % Eosinophils % Basophils % PT with INR INR PTT (Actin FS) Sodium Potassium Chloride Carbon Dioxide Anion Gap BUN Creatinine Creat Clearance w eGFR POC Glucometer 67 Random Glucose Calcium Phosphorus Magnesium 2.2 D Total Bilirubin AST ALT Alkaline Phosphatase Total Protein Albumin [place] Blood Type O POSITIVE Antibody Screen Crossmatch See Detail 07/05/17 07/05/17 07/05/17 08:55 08:55 08:55 WBC RBC Hgb Hct MCV MCH MCHC RDW Plt Count MPV Neutrophils % Lymphocytes % Monocytes % Eosinophils % Basophils % PT with INR 15.4 H INR 1.38 H PTT (Actin FS) 33.4 Sodium 122 L* Potassium 4.2 Chloride 98 Carbon Dioxide 10 L Anion Gap 14 BUN 71 H Creatinine 3.5 H Creat Clearance w eGFR 12.38 POC Glucometer Random Glucose 77 D Calcium 6.6 L* Phosphorus 4.1 D Magnesium 1.9 Total Bilirubin 0.6 AST 57 H ALT 47 H Alkaline Phosphatase 117 H Total Protein 4.3 L Albumin 1.8 L [place] Blood Type O POSITIVE Antibody Screen Negative Crossmatch 07/05/17 07/05/17 07/05/17 12:39 15:11 16:00 WBC 15.8 H RBC 2.76 L Hgb 7.7 L Hct 23.6 L MCV 85.4 MCH 28.0 MCHC 32.7 RDW 14.5 Plt Count 80 L MPV 7.6 Neutrophils % 91.4 H Lymphocytes % 2.0 L Monocytes % 3.7 L Eosinophils % 2.8 Basophils % 0.1 PT with INR INR PTT (Actin FS) Sodium 124 L* Potassium 3.7 Chloride 99 Carbon Dioxide 11 L Anion Gap 14 BUN 70 H Creatinine 3.4 H Creat Clearance w eGFR 12.81 POC Glucometer 79 Random Glucose 85 Calcium 6.5 L* Phosphorus Magnesium Total Bilirubin 0.7 AST 60 H ALT 49 H Alkaline Phosphatase 124 H Total Protein 4.4 L Albumin 1.9 L [place] Blood Type Antibody Screen Crossmatch 07/05/17 07/06/17 21:43 05:10 WBC 17.0 H D RBC 2.73 L Hgb 7.5 L Hct 23.1 L MCV 84.5 MCH 27.5 MCHC 32.6 RDW 15.5 Plt Count 57 L D MPV 8.6 Neutrophils % Lymphocytes % Monocytes % Eosinophils % Basophils % PT with INR INR PTT (Actin FS) Sodium 129 L Potassium 3.7 Chloride 102 Carbon Dioxide 13 L Anion Gap 14 BUN 71 H Creatinine 3.4 H Creat Clearance w eGFR POC Glucometer Random Glucose 80 Calcium 7.5 L Phosphorus Magnesium Total Bilirubin AST ALT Alkaline Phosphatase Total Protein Albumin [place] Blood Type Antibody Screen Crossmatch Active Medications Generic Name Dose Route Start Last Admin Trade Name Freq PRN Reason Stop Dose Admin Acetaminophen 650 mg 07/05/17 16:53 Tylenol - PO Q4H PRN FEVER Calcium Carbonate/Cholecalciferol 1 tab 07/06/17 10:00 Os-Leo 500+D - PO DAILY OSMAN Chlorhexidine Gluconate 1 applic 07/05/17 22:00 07/05/17 21:27 Hibiclens For Decolonization - TP 1 applic HS OSMAN Administration Diphenhydramine HCl 25 mg 07/05/17 16:53 Benadryl - PO Q6H PRN FOR ITCHING Fentanyl 25 mcg 07/05/17 15:50 07/05/17 16:00 Sublimaze Injection - IVPUSH 25 mcg Q5M PRN Administration PAIN-PACU ORDER X 4 DOSES ONLY Famotidine/Sodium Chloride 20 mg in 50 mls @ 144 mls/hr 07/05/17 22:00 21:31 Pepcid 20 Mg Premixed Ivpb - IVPB 144 mls/hr BID OSMAN Administration Sodium Chloride 1,000 mls @ 50 mls/hr 07/05/17 23:11 Normal Saline - IV ASDIR OSMAN Cefepime HCl 1 gm/ Dextrose 100 mls @ 200 mls/hr 07/06/17 10:00 IVPB BID OSMAN Morphine Sulfate 2 mg 07/05/17 22:12 07/05/17 22:18 Morphine Injection - IVPUSH 07/06/17 22:11 2 mg Q4H PRN Administration PAIN LEVEL 6-10 Mupirocin 1 applic 07/05/17 22:00 07/05/17 21:26 Bactroban Ointment (For Decolonization) - NS 07/10/17 21:59 1 applic BID OSMAN Administration Polyethylene Glycol 17 gm 07/06/17 10:00 Miralax (For Daily Use) - PO DAILY OSMAN ASSESSMENT/PLAN: 87 yo female with h/o diverticulitis, HTN, bipolar disorder, recent L hip replacement, presented with AMS and found to have hyponatremia, MICAELA, L obstructive ureteropelvic junction calculus, now s/p L stent placement. 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 and monthly ECTs (last session early may 2017) s/p hypoglycemia correction-repeat BGM above 100 s/p hypotension- resolved with 500mls bolus Nsaline Hold feeds to mental status improved Change NS to D5/Ns @50mls/hr (if not feeding) Resume [place] PO Pain mx- iv tylenol 1g stat Tabs Acetaminophen 650mg Q4H PRN Avoid sedatives Renal/ID: Severe sepsis 2/2 to UTI with obstructive ureteropelvic calculus s/p L stent placement MICAELA likely postrenal 2/2 obstructive ureteropelvic calculus s/p stent placement hyponatremia- improving Hyperkalemia-normalized BMP at 2.00pm Leucocytosis Patient developed rashes likely to cefepime 1g Now on Aztreonam Cont iv fluids D5/Ns @50mls/hr Monitor Abd /pelvic US per ID Endo/GI: Episode of hypoglycemia- now resolved Not a known diabetic, likely due to reduced intake with AMS Cont iv fluids D5/Ns @50mls/hr Observe mental status to resume feeds Abd /pelvic US - showed fatty liver Transaminitis R/O shock liver Hepatitis panel Cardio: Hx of hypertension Was hypotensive s/p stent placement following obstructive ureteropelvic calculus Fluid responsive, not needing pressors Pulmonary: Acute Hypoxic respiratory failure likely 2/2 to severe sepsis CXR On venturimask- O2 therapy as needed Incentive spirometry PT Duonebs Hemonc: Thrombocytopenia R/O DIC Mech DVT prophylaxis only PT/PTT/Fibrinogen FEN: iv fluids D5/Ns @50mls/hr Monitor lytes and replete as needed-BMP Resume feeds when mental status is improved Prophylaxis: DVT- SCDs-Thrombocytopenia On pepcid gtt Dispo: Monitor in ICU Visit type - Emergency Visit Emergency Visit: Yes ED Registration Date: 07/04/17 Care time: The patient presented to the Emergency Department on the above date and was hospitalized for further evaluation of their emergent condition. - New Patient This patient is new to me today: Yes Date on this admission: 07/06/17 - Critical Care Critical Care patient: Yes Total Critical Care Time (in minutes): 43 Critical Care Statement: The care of this patient involved high complexity decision making to prevent further life threatening deterioration of the patient 's condition and/or to evaluate & treat vital organ system(s) failure or risk of failure. - Discharge Referral Referred to [facility] Med P.C.: No
[2017-07-06] MEDS ORDERED: SODIUM CHLORIDE 0.9% 500 ML INFUS.BAG IV ONE (07:33)
[2017-07-06 08:06] LABS: PHOSPHOROUS 5.5 mg/dL (2.5-4.9)
[2017-07-06 08:07] LABS: MAGNESIUM 2.6 mg/dL (1.8-2.4)
--- NOTE | 2017-07-06 08:08 | PN ---
Progress Note, Physician Chief Complaint: ID ICU follow up for this this elderly female with urosepsis s/p stent ureteral. Has gram negative rods in the blood Given Cefepime and reportedly developed an immediate rash and the drug stopped and given benadrylwith resolution with no respiratory compromise. She is arousable but lethargic hypotensive - Current Medication List Current Medications: Active Medications Acetaminophen (Tylenol -) 650 mg PO Q4H PRN PRN Reason: FEVER Calcium Carbonate/Cholecalciferol (Os-Leo 500+D -) 1 tab PO DAILY COUNT INCLUDES [facility] Chlorhexidine Gluconate (Hibiclens For Decolonization -) 1 applic TP HS COUNT INCLUDES [facility] Last Admin: 07/05/17 21:27 Dose: 1 applic Diphenhydramine HCl (Benadryl -) 25 mg PO Q6H PRN PRN Reason: FOR ITCHING Fentanyl (Sublimaze Injection -) 25 mcg IVPUSH Q5M PRN PRN Reason: PAIN-PACU ORDER X 4 DOSES ONLY Last Admin: 07/05/17 16:00 Dose: 25 mcg Famotidine/Sodium Chloride (Pepcid 20 Mg Premixed Ivpb -) 20 mg in 50 mls @ 144 mls/hr IVPB BID COUNT INCLUDES [facility] Last Admin: 07/05/17 21:31 Dose: 144 mls/hr Sodium Chloride (Normal Saline -) 1,000 mls @ 50 mls/hr IV ASDIR COUNT INCLUDES THE [facility] Morphine Sulfate (Morphine Injection -) 2 mg IVPUSH Q4H PRN PRN Reason: PAIN LEVEL 6-10 Stop: 07/06/17 22:11 Last Admin: 07/05/17 22:18 Dose: 2 mg Mupirocin (Bactroban Ointment (For Decolonization) -) 1 applic NS BID COUNT INCLUDES [facility] Stop: 07/10/17 21:59 Last Admin: 07/05/17 21:26 Dose: 1 applic Polyethylene Glycol (Miralax (For Daily Use) -) 17 gm PO DAILY COUNT INCLUDES [facility] - Objective Vital Signs: Vital Signs Temperature 97.5 F L 07/06/17 07:15 Pulse Rate 62 07/06/17 07:15 Respiratory Rate 16 07/06/17 07:15 Blood Pressure 74/33 07/06/17 07:44 O2 Sat by Pulse Oximetry (%) 100 07/06/17 07:20 Constitutional: Yes: No Distress Neck: Yes: WNL, Supple Cardiovascular: Yes: S1, S2 Respiratory: Yes: WNL, Regular, CTA Bilaterally Gastrointestinal: Yes: WNL, Normal Bowel Sounds, Soft. No: Tenderness Edema: No Labs: CBC, BMP 07/06/17 05:10 07/06/17 05:10 INR, PTT INR 1.38 (0.82-1.09) H 07/05/17 08:55 Problem List - Problems (1) Gram-negative bacteremia Code(s): R78.81 - BACTEREMIA (2) MICAELA (acute kidney injury) Code(s): N17.9 - ACUTE KIDNEY FAILURE, UNSPECIFIED (3) Kidney stone on left side Code(s): N20.0 - CALCULUS OF KIDNEY (4) Sepsis Code(s): A41.9 - SEPSIS, UNSPECIFIED ORGANISM Assessment/Plan Microbiology 07/04/17 12:30 Blood - Peripheral Venous Blood Culture - Preliminary Pending Organism 07/04/17 12:30 Blood - Peripheral Venous Blood Culture - Preliminary Pending Organism Laboratory Tests 07/05/17 07/06/17 07/06/17 08:55 05:10 05:10 WBC 17.0 H D Hgb 7.5 L Hct 23.1 L Plt Count 57 L D INR 1.38 H BUN 73 H Creatinine 3.1 H Creat Clearance w eGFR 14.25 Total Bilirubin 1.2 H AST 117 H ALT 96 H Alkaline Phosphatase 247 H Assessment Sepsis syndrome Gram negative bacteremia Obstructive uropathy Hydronephrosis post stent Allergic reaction Cefepime with rash Elevated LFTS secondary bacteremia with GNB Thrombocytopenia consumptive Plan Substititute Aztreonam Abd sonogram Madhav CARROLL
[2017-07-06] MEDS ORDERED: AZTREONAM 2 GM in DEXTROSE 5%-WATER - 100 ML IV ONE (08:11)
[2017-07-06] MEDS: CALCIUM 500MG/VIT-D 200 UNITS COMBO TABLET (FP) PO SCH (09:25)
[2017-07-06] MEDS: POLYETHYLENE GLYCOL 3350 119 GM BTL PO SCH (09:25)
[2017-07-06] MEDS: FAMOTIDINE 20 MG/50 ML IVPB 20 MG/50 ML MG IVPB SCH ×2 (09:26→22:00)
[2017-07-06] MEDS: MUPIROCIN 2% TOPICAL OINTMENT FOR DECOLONIZATION NS SCH ×2 (09:26→22:00)
[2017-07-06] MEDS ORDERED: DEXTROSE 50%-WATER - 25 GM/50 ML VIAL IVPUSH ONE (09:35)
[2017-07-06] MEDS ORDERED: CEFEPIME 1 GM in DEXTROSE 5%-WATER - 100 ML IVPB SCH (10:00)
[2017-07-06] MEDS ORDERED: ACETAMINOPHEN 1000 MG/100 ML VIAL (NON FORMULARY) IVPB ONE (11:59)
--- NOTE | 2017-07-06 12:21 | PN ---
Teaching Attending Note Name of Resident: Aliya Martinez ATTENDING PHYSICIAN STATEMENT I saw and evaluated the patient. I reviewed the resident's note and discussed the case with the resident. I agree with the resident's findings and plan as documented. SUBJECTIVE: Pt seen and examined in the ICU. Lethargic, mildly tachypneic on ventimask 40%. Developed rash after given cefepime, changed to aztreonam. Blood pressures improving with IVF. OBJECTIVE: Last Vital Signs Temp Pulse Resp BP Pulse Ox 97.5 F L 72 16 95/48 100 07/06/17 07:15 07/06/17 10:27 07/06/17 10:27 07/06/17 12:06 07/06/17 09:20 Intake & Output 07/03/17 07/04/17 07/05/17 07/06/17 23:59 23:59 23:59 23:59 Intake Total 2600 3250 1000 Output Total 350 570 450 Balance 2250 2680 550 Weight 70.321 kg 67.132 kg Gen: lethargic, mildly tachypneic Heart: RRR Lung: upper airway wheezing, scattered rhonchi Abd: soft, nontender Ext: no edema CBC, BMP 07/06/17 05:10 07/06/17 05:10 Active Medications Acetaminophen (Tylenol -) 650 mg PO Q4H PRN PRN Reason: FEVER Calcium Carbonate/Cholecalciferol (Os-Leo 500+D -) 1 tab PO DAILY [facility] Last Admin: 07/06/17 09:25 Dose: Not Given Chlorhexidine Gluconate (Hibiclens For Decolonization -) 1 applic TP HS [facility] Last Admin: 07/05/17 21:27 Dose: 1 applic Diphenhydramine HCl (Benadryl -) 25 mg PO Q6H PRN PRN Reason: FOR ITCHING Fentanyl (Sublimaze Injection -) 25 mcg IVPUSH Q5M PRN PRN Reason: PAIN-PACU ORDER X 4 DOSES ONLY Last Admin: 07/05/17 16:00 Dose: 25 mcg Famotidine/Sodium Chloride (Pepcid 20 Mg Premixed Ivpb -) 20 mg in 50 mls @ 144 mls/hr IVPB BID [facility] Last Admin: 07/06/17 09:26 Dose: 144 mls/hr Sodium Chloride (Normal Saline -) 1,000 mls @ 50 mls/hr IV ASDIR [facility] Last Admin: 07/06/17 09:24 Dose: 50 mls/hr Aztreonam (Azactam (Restricted To Id) -) 1 gm in 10 mls @ 120 mls/hr IVPUSH BID [facility] PRN Reason: Protocol Lucas Carbonate (Eskalith -) 150 mg PO HS [facility] Morphine Sulfate (Morphine Injection -) 2 mg IVPUSH Q4H PRN PRN Reason: PAIN LEVEL 6-10 Stop: 07/06/17 22:11 Last Admin: 07/05/17 22:18 Dose: 2 mg Mupirocin (Bactroban Ointment (For Decolonization) -) 1 applic NS BID [facility] Stop: 07/10/17 21:59 Last Admin: 07/06/17 09:26 Dose: 1 applic Polyethylene Glycol (Miralax (For Daily Use) -) 17 gm PO DAILY [facility] Last Admin: 07/06/17 09:25 Dose: Not Given ASSESSMENT AND PLAN: UTI/Obstructive Uropathy Acute Kidney Injury Gram Negative Bacteremia Severe Sepsis r/o DIC s/p Cystoscopy/Left Ureteral Stent Placement Thrombocytopenia Anemia Hyponatremia Bipolar Disorder - continue antibiotics - f/u cultures - IVF - monitor urine output, creatinine - inhaled bronchodilators - taper FiO2 to keep SpO2 >90% - monitor lytes - monitor coags, check fibrinogen level - transfuse as needed - NPO until more alert - aspiration precautions - mechanical DVT prophylaxis critical care time spent in reviewing chart, evaluating patient and formulating plan 35 min
[2017-07-06] MEDS ORDERED: ALBUTEROL SO4 2.5/IPRATROPIUM 0.5 INH SOL 3 ML VIAL.NEB. NEB PRN (12:52)
[2017-07-06] MEDS ORDERED: SODIUM CHLORIDE 1,000 ML IV STA (13:48)
[2017-07-06] MEDS: DEXTROSE 5%-NORMAL SALINE 1,000 ML IV SCH (13:53)
--- NOTE | 2017-07-06 15:29 | PN ---
Progress Note, Physician History of Present Illness: Pt seen and examined at bedside. She is now in the ICU at [facility]. Pt is more responsive then she was yesterday. - Current Medication List Current Medications: Active Medications Acetaminophen (Tylenol -) 650 mg PO Q4H PRN PRN Reason: FEVER Albuterol/Ipratropium (Duoneb -) 1 amp NEB Q4H PRN PRN Reason: SHORTNESS OF BREATH Calcium Carbonate/Cholecalciferol (Os-Leo 500+D -) 1 tab PO DAILY [facility] Last Admin: 07/06/17 09:25 Dose: Not Given Chlorhexidine Gluconate (Hibiclens For Decolonization -) 1 applic TP HS [facility] Last Admin: 07/05/17 21:27 Dose: 1 applic Diphenhydramine HCl (Benadryl -) 25 mg PO Q6H PRN PRN Reason: FOR ITCHING Fentanyl (Sublimaze Injection -) 25 mcg IVPUSH Q5M PRN PRN Reason: PAIN-PACU ORDER X 4 DOSES ONLY Last Admin: 07/05/17 16:00 Dose: 25 mcg Famotidine/Sodium Chloride (Pepcid 20 Mg Premixed Ivpb -) 20 mg in 50 mls @ 144 mls/hr IVPB BID [facility] Last Admin: 07/06/17 09:26 Dose: 144 mls/hr Aztreonam (Azactam (Restricted To Id) -) 1 gm in 10 mls @ 120 mls/hr IVPUSH BID OSMAN PRN Reason: Protocol Dextrose/Sodium Chloride (D5-Ns -) 1,000 mls @ 50 mls/hr IV ASDIR [facility] Last Admin: 07/06/17 13:53 Dose: 50 mls/hr Converse Carbonate (Eskalith -) 150 mg PO HS [facility] Morphine Sulfate (Morphine Injection -) 2 mg IVPUSH Q4H PRN PRN Reason: PAIN LEVEL 6-10 Stop: 07/06/17 22:11 Last Admin: 07/05/17 22:18 Dose: 2 mg Mupirocin (Bactroban Ointment (For Decolonization) -) 1 applic NS BID [facility] Stop: 07/10/17 21:59 Last Admin: 07/06/17 09:26 Dose: 1 applic Polyethylene Glycol (Miralax (For Daily Use) -) 17 gm PO DAILY [facility] Last Admin: 07/06/17 09:25 Dose: Not Given - Objective Vital Signs: Vital Signs Temperature 97.5 F L 07/06/17 07:15 Pulse Rate 58 L 07/06/17 13:44 Respiratory Rate 16 07/06/17 13:44 Blood Pressure 85/44 07/06/17 13:44 O2 Sat by Pulse Oximetry (%) 100 07/06/17 09:20 Constitutional: Yes: Calm, Mild Distress Eyes: Yes: Conjunctiva Clear Cardiovascular: Yes: S1, S2 Respiratory: Yes: Diminished, On Nasal O2 Gastrointestinal: Yes: Soft Genitourinary: Yes: Johnson Present Musculoskeletal: Yes: Muscle Weakness Edema: Yes Edema: LUE: Trace, RUE: Trace, LLE: Trace, RLE: Trace Integumentary: No: Rash Neurological: Yes: Lethargy Psychiatric: Yes: Agitated Labs: CBC, BMP 07/06/17 05:10 INR, PTT INR 1.38 (0.82-1.09) H 07/05/17 08:55 - ....Imaging Ultrasound: Report Reviewed Other: Report Reviewed (echo) Problem List - Problems (1) MICAELA (acute kidney injury) Code(s): N17.9 - ACUTE KIDNEY FAILURE, UNSPECIFIED (2) Dehydration Code(s): E86.0 - DEHYDRATION (3) Depression Code(s): F32.9 - MAJOR DEPRESSIVE DISORDER, SINGLE EPISODE, UNSPECIFIED (4) Electrolyte imbalance Code(s): E87.8 - OTH DISORDERS OF ELECTROLYTE AND FLUID BALANCE, NEC (5) Hypertension Code(s): I10 - ESSENTIAL (PRIMARY) HYPERTENSION (6) Hypoglycemia Code(s): E16.2 - HYPOGLYCEMIA, UNSPECIFIED (7) Hyponatremia Code(s): E87.1 - HYPO-OSMOLALITY AND HYPONATREMIA (8) Kidney stone on left side Code(s): N20.0 - CALCULUS OF KIDNEY (9) Leukocytosis Code(s): D72.829 - ELEVATED WHITE BLOOD CELL COUNT, UNSPECIFIED Qualifiers: Qualified Code(s): D72.825 - Bandemia (10) Obstructive uropathy Code(s): N13.9 - OBSTRUCTIVE AND REFLUX UROPATHY, UNSPECIFIED Assessment/Plan Current Medications Generic Name Dose Route Start Last Admin Trade Name Freq PRN Reason Stop Dose Admin Acetaminophen 650 mg 07/05/17 16:53 Tylenol - PO Q4H PRN FEVER Albuterol/Ipratropium 1 amp 07/06/17 12:52 Duoneb - NEB Q4H PRN SHORTNESS OF BREATH Calcium Carbonate/Cholecalciferol 1 tab 07/06/17 10:00 07/06/17 09:25 Os-Leo 500+D - PO Not Given DAILY [facility] Chlorhexidine Gluconate 1 applic 07/05/17 22:00 07/05/17 21:27 Hibiclens For Decolonization - TP 1 applic HS OSMAN Administration Diphenhydramine HCl 25 mg 07/05/17 16:53 Benadryl - PO Q6H PRN FOR ITCHING Fentanyl 25 mcg 07/05/17 15:50 07/05/17 16:00 Sublimaze Injection - IVPUSH 25 mcg Q5M PRN Administration PAIN-PACU ORDER X 4 DOSES ONLY Famotidine/Sodium Chloride 20 mg in 50 mls @ 144 mls/hr 07/05/17 22:00 09:26 Pepcid 20 Mg Premixed Ivpb - IVPB 144 mls/hr BID OSMAN Administration Aztreonam 1 gm in 10 mls @ 120 mls/hr 07/06/17 22:00 Azactam (Restricted To Id) - IVPUSH BID [facility] Protocol Dextrose/Sodium Chloride 1,000 mls @ 50 mls/hr 07/06/17 13:00 07/06/17 13:53 D5-Ns - IV 50 mls/hr ASDIR OSMAN Administration Converse Carbonate 150 mg 07/06/17 22:00 Eskalith - PO HS [facility] Morphine Sulfate 2 mg 07/05/17 22:12 07/05/17 22:18 Morphine Injection - IVPUSH 07/06/17 22:11 2 mg Q4H PRN Administration PAIN LEVEL 6-10 Mupirocin 1 applic 07/05/17 22:00 07/06/17 09:26 Bactroban Ointment (For Decolonization) - NS 07/10/17 21:59 1 applic BID OSMAN Administration Polyethylene Glycol 17 gm 07/06/17 10:00 07/06/17 09:25 Miralax (For Daily Use) - PO Not Given DAILY [facility] Impression 1. MICAELA 2. hyperkalemia 3. hyponatremia 4. bipolar - on lithium 5. depression 6. change in mental status 7. nephrolithiasis 8. left kidney hydronephrosis 9. sepsis 10. acidosis 11. elevated INR 12. thrombocytopenia Plan - sodium is improving, goal is a change not greater than 10 meq in a 24 hour time period - cont saline - cont to monitor sodium levels - ICU care - cont calcium tabs - cont abx - monitor renal function - cont with ICU care - discussed with ICU team - micaela likely from pre-renal disease and obstruction - workup in progress - maintain Alex Bueno
[2017-07-06 15:37] LABS: ANION GAP 15 (8-16); BLOOD UREA NITROGEN 69 mg/dL (7-18); CHLORIDE 109 mmol/L (98-107); CO2 11 mmol/L (21-32); CREATININE 2.9 mg/dL (0.55-1.02); GLUCOSE,RANDOM 89 mg/dL (74-106); POTASSIUM 3.7 mmol/L (3.5-5.1); SODIUM 135 mmol/L (136-145)
[2017-07-06 15:47] LABS: CALCIUM 6.5 mg/dL (8.5-10.1); INR 1.35 (0.82-1.09); PROTHROMBIN TIME (PATIENT) 15.2 SEC (9.98-11.88)
[2017-07-06 15:49] LABS: ACTIVATED PTT 29.7 SECONDS (26.9-34.4)
[2017-07-06] MEDS ORDERED: CALCIUM GLUCONATE 10% - 1,000 MG/10 ML VIAL ONE (16:10)
[2017-07-06] MEDS ORDERED: CALCIUM GLUCONATE 10% - 1,000 MG/10 ML VIAL IVPUSH ONE (16:15)
--- NOTE | 2017-07-06 17:19 | PN ---
Progress Note (short form) - Note Progress Note: Subjective: The patient was seen and examined in the ICU Current Medications Generic Name Dose Route Start Last Admin Trade Name Freq PRN Reason Stop Dose Admin Acetaminophen 650 mg 07/05/17 16:53 Tylenol - PO Q4H PRN FEVER Albuterol/Ipratropium 1 amp 07/06/17 12:52 Duoneb - NEB Q4H PRN SHORTNESS OF BREATH Calcium Carbonate/Cholecalciferol 1 tab 07/06/17 10:00 07/06/17 09:25 Os-Leo 500+D - PO Not Given DAILY [facility] Chlorhexidine Gluconate 1 applic 07/05/17 22:00 07/05/17 21:27 Hibiclens For Decolonization - TP 1 applic HS [facility] Administration Diphenhydramine HCl 25 mg 07/05/17 16:53 Benadryl - PO Q6H PRN FOR ITCHING Fentanyl 25 mcg 07/05/17 15:50 07/05/17 16:00 Sublimaze Injection - IVPUSH 25 mcg Q5M PRN Administration PAIN-PACU ORDER X 4 DOSES ONLY Famotidine/Sodium Chloride 20 mg in 50 mls @ 144 mls/hr 07/05/17 22:00 09:26 Pepcid 20 Mg Premixed Ivpb - IVPB 144 mls/hr BID OSMAN Administration Aztreonam 1 gm in 10 mls @ 120 mls/hr 07/06/17 22:00 Azactam (Restricted To Id) - IVPUSH BID O[facility] Protocol Dextrose/Sodium Chloride 1,000 mls @ 50 mls/hr 07/06/17 13:00 07/06/17 13:53 D5-Ns - IV 50 mls/hr ASDIR O[facility] Administration Glouster Carbonate 150 mg 07/06/17 22:00 Eskalith - PO HS [facility] Morphine Sulfate 2 mg 07/05/17 22:12 07/05/17 22:18 Morphine Injection - IVPUSH 07/06/17 22:11 2 mg Q4H PRN Administration PAIN LEVEL 6-10 Mupirocin 1 applic 07/05/17 22:00 07/06/17 09:26 Bactroban Ointment (For Decolonization) - NS 07/10/17 21:59 1 applic BID [facility] Administration Polyethylene Glycol 17 gm 07/06/17 10:00 07/06/17 09:25 Miralax (For Daily Use) - PO Not Given DAILY [facility] Objective: Vital Signs Period Temp Pulse Resp BP Sys/Marroquin Pulse Ox Last 24 Hr 97.5 F-98.7 F 58-86 11-20 74-132/33-73 89-100 Physical Exam: General: lethargic, mildly tachypneic Lungs: Scattered rhonchi bilaterally Heart: RRR, S1S2 Abd: Soft, non-tender. Normoactive bowel sounds CBCD WBC 17.0 K/mm3 (4.0-10.0) H D 07/06/17 05:10 RBC 2.73 M/mm3 (3.60-5.2) L 07/06/17 05:10 Hgb 7.5 GM/dL (10.7-15.3) L 07/06/17 05:10 Hct 23.1 % (32.4-45.2) L 07/06/17 05:10 MCV 84.5 fl (80-96) 07/06/17 05:10 MCHC 32.6 g/dl (32.0-36.0) 07/06/17 05:10 RDW 15.5 % (11.6-15.6) 07/06/17 05:10 Plt Count 57 K/MM3 (134-434) L D 07/06/17 05:10 MPV 8.6 fl (7.5-11.1) 07/06/17 05:10 CMP Sodium 135 mmol/L (136-145) L 07/06/17 15:00 Potassium 3.7 mmol/L (3.5-5.1) 07/06/17 15:00 Chloride 109 mmol/L (98-107) H 07/06/17 15:00 Carbon Dioxide 11 mmol/L (21-32) L 07/06/17 15:00 Anion Gap 15 (8-16) 07/06/17 15:00 BUN 69 mg/dL (7-18) H 07/06/17 15:00 Creatinine 2.9 mg/dL (0.55-1.02) H 07/06/17 15:00 Creat Clearance w eGFR 14.25 (>60) 07/06/17 05:10 Random Glucose 89 mg/dL (74-106) 07/06/17 15:00 Calcium 6.5 mg/dL (8.5-10.1) L* 07/06/17 15:00 Total Bilirubin 1.2 mg/dL (0.2-1.0) H 07/06/17 05:10 AST 117 U/L (15-37) H 07/06/17 05:10 ALT 96 U/L (12-78) H 07/06/17 05:10 Alkaline Phosphatase 247 U/L (45-117) H 07/06/17 05:10 Total Protein 4.3 g/dl (6.4-8.2) L 07/06/17 05:10 Albumin 1.6 g/dl (3.4-5.0) L 07/06/17 05:10 CARDIAC ENZYMES Creatine Kinase Cancelled 07/04/17 10:10 Troponin I Cancelled 07/04/17 10:10 Microbiology 07/04/17 11:17 Urine - Urine Clean Catch Urine Culture - Preliminary Lactose Fermenting Neg Bacilli Group D Strep Or Entero Coccus 07/04/17 12:30 Blood - Peripheral Venous Blood Culture - Preliminary Lactose Fermenting Neg Bacilli 07/04/17 12:30 Blood - Peripheral Venous Blood Culture - Preliminary Lactose Fermenting Neg Bacilli Assessment: This is an 87 year old female with PMHx of diverticulitis, hypertension, macular degeneration (legally blind), depression, anxiety, who presented for ECT and was found to have confusion, labile BP, tachycardia Plan: 1) Severe sepsis 2/2 gram negative bacteremia - ECHO reviewed - Continue Aztreonam - F/u final culture and sensitivity for blood cultures - Repeat blood cultures today - Monitor WBC, trended up - Afebrile - Appreciate ID consult 2) UTI/Obstructive uropathy - CTAP with obstructing calculus at the left ureteropelvic junction with moderate left hydronephrosis - Left ureteral stent placement on 07/05 - Appreciate urology consult 3) MICAELA - Cr trending down slightly - Continue to monitor - Continue yan catheter 4) Hyponatremia - Continues to improve - Continue saline - Appreciate nephrology consult 5) Depression - Holding Glouster as the patient has MICAELA 6) F/E/N: - Hypocalcemia: replete - Regular diet - Monitor electrolytes 7) Prophylaxis: - Hold chemical DVT prophylaxis as the patient has thrombocytopenia - TEDs bilaterally 8) Dispo: - Requires continued inpatient care CODE STATUS: DNR/DNI Visit type - Emergency Visit Emergency Visit: Yes ED Registration Date: 07/04/17 Care time: The patient presented to the Emergency Department on the above date and was hospitalized for further evaluation of their emergent condition. - New Patient This patient is new to me today: Yes Date on this admission: 07/09/17 - Critical Care Critical Care patient: Yes Total Critical Care Time (in minutes): 45 Critical Care Statement: The care of this patient involved high complexity decision making to prevent further life threatening deterioration of the patient 's condition and/or to evaluate & treat vital organ system(s) failure or risk of failure.
--- NOTE | 2017-07-06 17:42 | EKG ---
Test Reason : Blood Pressure : / mmHG Vent. Rate : 077 BPM Atrial Rate : 077 BPM P-R Int : 176 ms QRS Dur : 136 ms QT Int : 394 ms P-R-T Axes : 045 075 051 degrees QTc Int : 445 ms NORMAL SINUS RHYTHM RIGHT BUNDLE BRANCH BLOCK WHEN COMPARED WITH ECG OF 27-MAR-2017 08:04, NO SIGNIFICANT CHANGE WAS FOUND Confirmed by MD WESTON MARJORY ([id number]) on 07/06/2017 5:42:27 PM Referred By: AFIA DESAI Confirmed By:PREETI WESTON MD
[2017-07-06] MEDS: LITHIUM CARBONATE 150 MG CAPSULE PO SCH (21:53)
[2017-07-06] MEDS ORDERED: PT OWN MED DRAWER 7, Y5N ONE (21:58)
[2017-07-06] MEDS: AZTREONAM 1 GRAM SYRINGE 1 GM/10 ML DISP.SYRIN IVPUSH SCH (22:00)
[2017-07-06] MEDS: CHLORHEXIDINE GLUCONATE 4% CLEANSER FOR DECOLONIZATION TP SCH (22:00)
--- NOTE | 2017-07-06 22:00 | PROC ---
Central Line Insertion Indication: CVP Monitoring, Sepsis, Vasopressor Risks and Benefits Explained: Yes Consent on Chart: Yes (Family consented) Central Line: Triple Lumen Catheter Anesthesia: 1% Lidocaine Sterile Technique: Yes Ultrasound Guided Assistance: Yes Position: Right Internal Jugular Post Insertion: Yes: Chest X-Ray Ordered Sterile Dressing Applied: Yes Remarks: Central line performed by Dr. Kinsey.
[2017-07-07 06:18] LABS: HEMATOCRIT 32.4 % (32.4-45.2); HEMOGLOBIN 10.6 GM/dL (10.7-15.3); MCH 27.8 pg (25.7-33.7); MCHC 32.7 g/dl (32.0-36.0); MEAN PLT VOLUME 8.7 fl (7.5-11.1); PLATELET COUNT 48 K/MM3 (134-434); RBC 3.81 M/mm3 (3.60-5.2); WHITE BLOOD COUNT 21.8 K/mm3 (4.0-10.0)
[2017-07-07 06:59] LABS: ALBUMIN 1.6 g/dl (3.4-5.0); ALK PHOS 498 U/L (45-117); ANION GAP 15 (8-16); BILIRUBIN,TOTAL 3.3 mg/dL (0.2-1.0); BLOOD UREA NITROGEN 72 mg/dL (7-18); CALCIUM 7.1 mg/dL (8.5-10.1); CHLORIDE 108 mmol/L (98-107); CO2 12 mmol/L (21-32); CREATININE 2.9 mg/dL (0.55-1.02); GLUCOSE,RANDOM 136 mg/dL (74-106); MAGNESIUM 2.5 mg/dL (1.8-2.4); PHOSPHOROUS 5.6 mg/dL (2.5-4.9); POTASSIUM 3.7 mmol/L (3.5-5.1); SGOT/AST 200 U/L (15-37); SGPT/ALT 190 U/L (12-78); SODIUM 135 mmol/L (136-145); TOT PROT 4.8 g/dl (6.4-8.2)
--- NOTE | 2017-07-07 07:28 | PN ---
Progress Note, Physician Chief Complaint: ID 87 year old female admitted ICU gram negative urosepsis Lethargic but alert Responsive to painful stimuli Aztreonam day 1 - Current Medication List Current Medications: Active Medications Acetaminophen (Tylenol -) 650 mg PO Q4H PRN PRN Reason: FEVER Albuterol/Ipratropium (Duoneb -) 1 amp NEB Q4H PRN PRN Reason: SHORTNESS OF BREATH Calcium Carbonate/Cholecalciferol (Os-Leo 500+D -) 1 tab PO DAILY [facility] Last Admin: 07/06/17 09:25 Dose: Not Given Chlorhexidine Gluconate (Hibiclens For Decolonization -) 1 applic TP HS [facility] Last Admin: 07/06/17 22:00 Dose: 1 applic Diphenhydramine HCl (Benadryl -) 25 mg PO Q6H PRN PRN Reason: FOR ITCHING Fentanyl (Sublimaze Injection -) 25 mcg IVPUSH Q5M PRN PRN Reason: PAIN-PACU ORDER X 4 DOSES ONLY Last Admin: 07/05/17 16:00 Dose: 25 mcg Famotidine/Sodium Chloride (Pepcid 20 Mg Premixed Ivpb -) 20 mg in 50 mls @ 144 mls/hr IVPB BID [facility] Last Admin: 07/06/17 22:00 Dose: 144 mls/hr Aztreonam (Azactam (Restricted To Id) -) 1 gm in 10 mls @ 120 mls/hr IVPUSH BID [facility] PRN Reason: Protocol Last Admin: 07/06/17 22:00 Dose: 120 mls/hr Dextrose/Sodium Chloride (D5-Ns -) 1,000 mls @ 50 mls/hr IV ASDIR [facility] Last Admin: 07/06/17 13:53 Dose: 50 mls/hr Magazine Carbonate (Eskalith -) 150 mg PO [facility] Last Admin: 07/06/17 21:53 Dose: Not Given Mupirocin (Bactroban Ointment (For Decolonization) -) 1 applic NS BID [facility] Stop: 07/10/17 21:59 Last Admin: 07/06/17 22:00 Dose: 1 applic Polyethylene Glycol (Miralax (For Daily Use) -) 17 gm PO DAILY [facility] Last Admin: 07/06/17 09:25 Dose: Not Given - Objective Vital Signs: Vital Signs Temperature 98.0 F 07/07/17 06:00 Pulse Rate 60 07/07/17 06:00 Respiratory Rate 14 07/07/17 06:00 Blood Pressure 135/55 07/07/17 06:00 O2 Sat by Pulse Oximetry (%) 100 07/06/17 21:00 Constitutional: Yes: No Distress Neck: Yes: Other (CVC line) Cardiovascular: Yes: S1, S2 Respiratory: Yes: WNL, Regular, CTA Bilaterally Gastrointestinal: Yes: WNL, Normal Bowel Sounds, Soft. No: Tenderness, Tenderness, Rebound Extremities: No: Cold, Cool, Cyanosis Edema: No Labs: CBC, BMP 07/07/17 06:00 INR, PTT INR 1.35 (0.82-1.09) H 07/06/17 15:00 Fibrinogen 579.0 mg/dL (238-498) H 07/06/17 15:00 Problem List - Problems (1) Gram-negative bacteremia Code(s): R78.81 - BACTEREMIA (2) MICAELA (acute kidney injury) Code(s): N17.9 - ACUTE KIDNEY FAILURE, UNSPECIFIED (3) Kidney stone on left side Code(s): N20.0 - CALCULUS OF KIDNEY (4) Sepsis Code(s): A41.9 - SEPSIS, UNSPECIFIED ORGANISM Assessment/Plan Microbiology 07/04/17 12:30 Blood - Peripheral Venous Blood Culture - Preliminary Lactose Fermenting Neg Bacilli 07/04/17 12:30 Blood - Peripheral Venous Blood Culture - Preliminary Lactose Fermenting Neg Bacilli 07/04/17 11:17 Urine - Urine Clean Catch Urine Culture - Preliminary Lactose Fermenting Neg Bacilli Group D Strep Or Entero Coccus Laboratory Tests 07/06/17 07/06/17 07/07/17 05:10 15:00 06:00 WBC 17.0 H D Pending Hgb 7.5 L Pending Hct 23.1 L Pending Plt Count 57 L D Pending INR 1.35 H Creat Clearance w eGFR Total Bilirubin AST ALT Alkaline Phosphatase 07/07/17 06:00 WBC Hgb Hct Plt Count INR Creat Clearance w eGFR 15.39 Total Bilirubin 3.3 H D AST 200 H ALT 190 H Alkaline Phosphatase 498 H Assessment Gram negative bacateremia UTI GNB and enterococci Cross reaction with cephalosporin ( Cefepime) thus Aztreonam pending sensitivities Elevated LFTs likely secondary sepsis superimposed on a fatty liver MICAELA Thrombocytopenia Plan Continue Aztreonam pending final culture report 1 dose of Vanco for Enterococcal coverage Critical care time 35 minutes Madhav CARROLL
--- NOTE | 2017-07-07 07:37 | PN ---
Physical Exam: SUBJECTIVE: Patient seen and examined. No new event overnight. Had a central line placed but did not require pressors. Patient verbalizing more this am although difficult to comprehend. Sating well on room air. OBJECTIVE: Vital Signs Period Temp Pulse Resp BP Sys/Marroquin Pulse Ox Last 24 Hr 97.3 F-98.4 F 58-86 13-20 74-135/33-73 100-100 Vital Signs Temp 98.0 F 07/07/17 06:00 Pulse 60 07/07/17 06:00 Resp 14 07/07/17 06:00 BP 135/55 07/07/17 06:00 Pulse Ox 100 07/06/17 21:00 Intake & Output 07/06/17 07/06/17 07/07/17 11:59 23:59 11:59 Intake Total 1000 2100 350 Output Total 450 400 300 Balance 550 1700 50 Weight 67.132 kg 70.6 kg Intake: IV 1000 1750 350 D5-Ns - 1,000 ml @ 50 mls 450 350 /hr IV ASDIR OSMAN Rx#: [id number] Normal Saline - 1,000 ml 300 @ 1000 mls/hr IV ASDIR STA Rx#:[id number] Normal Saline - 1,000 ml 350 @ 50 mls/hr IV ASDIR OSMAN Rx#:[id number] saline lock 650 1000 IVPB 50 Oral 0 Packed Cells 300 Output: Urine 450 400 300 Johnson 450 400 300 Other: Voiding Method Indwelling Catheter Indwelling Catheter Weight Measurement Method Built in [facility] GENERAL: The patient is awake, communicating verbally but not opening eyes. HEAD: Normal with no signs of trauma. EYES: Not opening eyes to command, although awake . ENT: Venturi mask, off this am sating in 100s. NECK: supple. LUNGS: Breath sounds reduced lung bases HEART: Regular rate and rhythm, S1, S2 without murmur, rub or gallop. ABDOMEN: Soft, nontender, nondistended, reduced bowel sounds, EXTREMITIES: 2+ pulses, warm, well-perfused, bilateral SCDs. NEUROLOGICAL: Lethargic, monosyllabic, able to move all limbs, gait not observed PSYCH: Withdrawn Lines:Johnson, R arterial line, RUE peripheral line, Microbiology 07/04/17 12:30 Blood - Peripheral Venous Blood Culture - Final Klebsiella Pneumoniae 07/04/17 12:30 Blood - Peripheral Venous Blood Culture - Final Klebsiella Pneumoniae 07/04/17 11:17 Urine - Urine Clean Catch Urine Culture - Preliminary Klebsiella Pneumoniae Group D Strep Or Entero Coccus 07/06/17 09:15 Blood - Peripheral Venous Blood Culture - Preliminary NO GROWTH OBTAINED AFTER 24 HOURS, INCUBATION TO CONTINUE FOR 4 DAYS. 07/06/17 09:30 Blood - Peripheral Venous Blood Culture - Preliminary NO GROWTH OBTAINED AFTER 24 HOURS, INCUBATION TO CONTINUE FOR 4 DAYS. Laboratory Results - last 24 hr 07/05/17 07/05/17 07/05/17 08:00 08:55 08:55 WBC RBC Hgb Hct MCV MCH MCHC RDW Plt Count MPV PT with INR INR PTT (Actin FS) Fibrinogen Sodium Potassium Chloride Carbon Dioxide Anion Gap BUN Creatinine Creat Clearance w eGFR POC Glucometer Random Glucose Calcium Phosphorus Magnesium Total Bilirubin AST ALT Alkaline Phosphatase Total Protein Albumin TSH 1.48 Cortisol AM Sample 17.9 Urine Osmolality Ur Random Sodium Ur Random Potassium Ur Random Chloride Urine Creatinine Blood Type O POSITIVE Antibody Screen Negative Crossmatch See Detail 07/06/17 07/06/17 07/06/17 05:10 05:10 05:10 WBC 17.0 H D RBC 2.73 L Hgb 7.5 L Hct 23.1 L MCV 84.5 MCH 27.5 MCHC 32.6 RDW 15.5 Plt Count 57 L D MPV 8.6 PT with INR INR PTT (Actin FS) Fibrinogen Sodium 132 L Potassium 4.0 Chloride 104 Carbon Dioxide 13 L Anion Gap 15 BUN 73 H Creatinine 3.1 H Creat Clearance w eGFR 14.25 POC Glucometer Random Glucose 51 L Calcium 7.2 L Phosphorus 5.5 H Cancelled Magnesium 2.6 H Cancelled Total Bilirubin 1.2 H AST 117 H ALT 96 H Alkaline Phosphatase 247 H Total Protein 4.3 L Albumin 1.6 L TSH Cortisol AM Sample Urine Osmolality Ur Random Sodium Ur Random Potassium Ur Random Chloride Urine Creatinine Blood Type Antibody Screen Crossmatch 07/06/17 07/06/17 07/06/17 06:00 09:12 09:15 WBC RBC Hgb Hct MCV MCH MCHC RDW Plt Count MPV PT with INR INR PTT (Actin FS) Fibrinogen Sodium Potassium Chloride Carbon Dioxide Anion Gap BUN Creatinine Creat Clearance w eGFR POC Glucometer 57.82543 Random Glucose Calcium Phosphorus Magnesium Total Bilirubin AST ALT Alkaline Phosphatase Total Protein Albumin TSH Cortisol AM Sample Urine Osmolality 292 L Ur Random Sodium 36 Ur Random Potassium 18.6 Ur Random Chloride 25 Urine Creatinine Blood Type Antibody Screen Crossmatch 07/06/17 07/06/17 07/06/17 09:15 11:20 15:00 WBC RBC Hgb Hct MCV MCH MCHC RDW Plt Count MPV PT with INR INR PTT (Actin FS) Fibrinogen Sodium 135 L Potassium 3.7 Chloride 109 H Carbon Dioxide 11 L Anion Gap 15 BUN 69 H Creatinine 2.9 H Creat Clearance w eGFR POC Glucometer 150.29498 Random Glucose 89 Calcium 6.5 L* Phosphorus Magnesium Total Bilirubin AST ALT Alkaline Phosphatase Total Protein Albumin TSH Cortisol AM Sample Urine Osmolality Ur Random Sodium Ur Random Potassium Ur Random Chloride Urine Creatinine 60.8 Blood Type Antibody Screen Crossmatch 07/06/17 07/07/17 15:00 06:00 WBC RBC Hgb Hct MCV MCH MCHC RDW Plt Count MPV PT with INR 15.20 H INR 1.35 H PTT (Actin FS) 29.7 Fibrinogen 579.0 H Sodium 135 L Potassium 3.7 Chloride 108 H Carbon Dioxide 12 L Anion Gap 15 BUN 72 H Creatinine 2.9 H Creat Clearance w eGFR 15.39 POC Glucometer Random Glucose 136 H Calcium 7.1 L Phosphorus 5.6 H Magnesium 2.5 H Total Bilirubin 3.3 H D AST 200 H ALT 190 H Alkaline Phosphatase 498 H Total Protein 4.8 L Albumin 1.6 L TSH Cortisol AM Sample Urine Osmolality Ur Random Sodium Ur Random Potassium Ur Random Chloride Urine Creatinine Blood Type Antibody Screen Crossmatch Active Medications Generic Name Dose Route Start Last Admin Trade Name Freq PRN Reason Stop Dose Admin Acetaminophen 650 mg 07/05/17 16:53 Tylenol - PO Q4H PRN FEVER Albuterol/Ipratropium 1 amp 07/06/17 12:52 Duoneb - NEB Q4H PRN SHORTNESS OF BREATH Calcium Carbonate/Cholecalciferol 1 tab 07/06/17 10:00 07/06/17 09:25 Os-Leo 500+D - PO Not Given DAILY OSMAN Chlorhexidine Gluconate 1 applic 07/05/17 22:00 07/06/17 22:00 Hibiclens For Decolonization - TP 1 applic HS OSMAN Administration Diphenhydramine HCl 25 mg 07/05/17 16:53 Benadryl - PO Q6H PRN FOR ITCHING Fentanyl 25 mcg 07/05/17 15:50 07/05/17 16:00 Sublimaze Injection - IVPUSH 25 mcg Q5M PRN Administration PAIN-PACU ORDER X 4 DOSES ONLY Famotidine/Sodium Chloride 20 mg in 50 mls @ 144 mls/hr 07/05/17 22:00 22:00 Pepcid 20 Mg Premixed Ivpb - IVPB 144 mls/hr BID OSMAN Administration Aztreonam 1 gm in 10 mls @ 120 mls/hr 07/06/17 22:00 07/06/17 22:00 Azactam (Restricted To Id) - IVPUSH 120 mls/hr BID OSMAN Administration Protocol Dextrose/Sodium Chloride 1,000 mls @ 50 mls/hr 07/06/17 13:00 07/06/17 13:53 D5-Ns - IV 50 mls/hr ASDIR OSMAN Administration [place] Carbonate 150 mg 07/06/17 22:00 07/06/17 21:53 Eskalith - PO Not Given HS OSMAN Mupirocin 1 applic 07/05/17 22:00 07/06/17 22:00 Bactroban Ointment (For Decolonization) - NS 07/10/17 21:59 1 applic BID OSMAN Administration Polyethylene Glycol 17 gm 07/06/17 10:00 07/06/17 09:25 Miralax (For Daily Use) - PO Not Given DAILY OSMAN ASSESSMENT/PLAN: 87 yo female with h/o diverticulitis, HTN, bipolar disorder, recent L hip replacement, presented with AMS and found to have hyponatremia, MICAELA, L obstructive ureteropelvic junction calculus, now s/p L stent placement. Neuro: Acute metabolic encephalopathy 2/2 severe sepsis with obstructive ureteropelvic calculus- resolving sepsis POD1 s/p L stent placement Baseline bipolar disorder with severe depression with catatonia and monthly ECTs (last session early may 2017) hyponatremia- improving MICAELA- improving s/p hypoglycemia yesterday - blood glucose stable s/p hypotension yesterday- resolved with 500mls bolus Nsaline, no need for pressors feeds on hold due to mental status On D5/Ns @50mls/hr Yet to receive [place] PO Pain mx-Tabs Acetaminophen 650mg Q4H PRN Avoid sedatives Renal/ID: Severe sepsis 2/2 to UTI with obstructive ureteropelvic calculus s/p L stent placement MICAELA likely postrenal 2/2 obstructive ureteropelvic calculus Bacteremia- Klebsiella pneumonia Urine cx- Klebsiella pneumonia s/p stent placement hyponatremia- improving Hyperkalemia-normalized BMP Leucocytosis Patient developed rashes likely to cefepime 1g Aztreonam Cont iv fluids D5/Ns @50mls/hr Monitor Abd /pelvic US per ID- fatty liver noted To discuss fluid mx with Dr Bueno Aspiration precautions-elevate HOB Endo/GI: Episode of hypoglycemia- now resolved Not a known diabetic, likely due to reduced intake with AMS Cont iv fluids D5/Ns @50mls/hr Observe mental status to resume feeds Abd /pelvic US - showed fatty liver Transaminitis R/O shock liver Hepatitis panel Cardio: Hx of hypertension Was hypotensive s/p stent placement following obstructive ureteropelvic calculus Fluid responsive, not needing pressors Pulmonary: Acute Hypoxic respiratory failure likely 2/2 to severe sepsis CXR On venturimask- O2 therapy as needed Incentive spirometry PT Duonebs Hemonc: Thrombocytopenia -elevated fibrinogen-[facility] PT/PTT/Fibrinogen- elevated fibrinogen(No DIC) FEN: iv fluids D5/Ns @50mls/hr Monitor lytes and replete as needed-BMP Resume feeds when mental status is improved Prophylaxis: DVT- SCDs-Thrombocytopenia On pepcid gtt Dispo: Monitor in ICU Visit type - Emergency Visit Emergency Visit: Yes ED Registration Date: 07/04/17 Care time: The patient presented to the Emergency Department on the above date and was hospitalized for further evaluation of their emergent condition. - New Patient This patient is new to me today: No - Critical Care Critical Care patient: Yes Total Critical Care Time (in minutes): 40 Critical Care Statement: The care of this patient involved high complexity decision making to prevent further life threatening deterioration of the patient 's condition and/or to evaluate & treat vital organ system(s) failure or risk of failure. - Discharge Referral Referred to [facility] No
[2017-07-07 07:56] LABS: BILIRUBIN,DIRECT 2.6 mg/dL (0.0-0.2)
[2017-07-07 08:38] LABS: ARTERIAL BLD GAS O2 SATURATION 98.1 % (90-98.9); ARTERIAL BLOOD GAS BASE EXCESS -17.2 meq/l (-2-2); ARTERIAL BLOOD GAS PCO2 24.2 mmHg (35-45)
[2017-07-07 08:39] LABS: ALLENS TEST POSITIVE
[2017-07-07 08:45] LABS: ARTERIAL BLOOD GAS pH 7.21 (7.35-7.45)
[2017-07-07] MEDS ORDERED: VANCOMYCIN 1,250 MG in DEXTROSE 5%-WATER - 250 ML IVPB ONE (09:00)
--- NOTE | 2017-07-07 09:30 | PN ---
Progress Note (short form) - Note Progress Note: S/p ureteral stent for obstructing stone. ICU urine is clear. afebrile WBC up slightly today.
[2017-07-07] MEDS ORDERED: PT OWN MED DRAWER 7, Y5N ONE ×2 (11:04→21:49)
[2017-07-07] MEDS: DEXTROSE 5%-NORMAL SALINE 1,000 ML IV SCH (11:09)
[2017-07-07] MEDS: FAMOTIDINE 20 MG/50 ML IVPB 20 MG/50 ML MG IVPB SCH ×2 (11:15→22:06)
[2017-07-07] MEDS: CALCIUM 500MG/VIT-D 200 UNITS COMBO TABLET (FP) PO SCH (11:16)
[2017-07-07] MEDS: MUPIROCIN 2% TOPICAL OINTMENT FOR DECOLONIZATION NS SCH ×2 (11:16→22:07)
[2017-07-07] MEDS: POLYETHYLENE GLYCOL 3350 119 GM BTL PO SCH (11:16)
[2017-07-07] MEDS: AZTREONAM 1 GRAM SYRINGE 1 GM/10 ML DISP.SYRIN IVPUSH SCH ×2 (11:16→22:06)
--- NOTE | 2017-07-07 11:53 | PN ---
Teaching Attending Note Name of Resident: Aliya Martinez ATTENDING PHYSICIAN STATEMENT I saw and evaluated the patient. I reviewed the resident's note and discussed the case with the resident. I agree with the resident's findings and plan as documented. SUBJECTIVE: Patient seen and examined in the ICU. Lethargic, mildly tachypneic on ventimask 40%. Not able to answer questions. No rash noted today. Noted changed to Aztreonam. Off pressors at this time. OBJECTIVE: Intake & Output 07/04/17 07/05/17 07/06/17 07/07/17 23:59 23:59 23:59 23:59 Intake Total 2600 3250 3100 350 Output Total 350 570 850 300 Balance 2250 2680 2250 50 Weight 155 lb 0.5 oz 148 lb 155 lb 10.342 oz Last Vital Signs Temp Pulse Resp BP Pulse Ox 97.5 F L 81 14 137/60 100 07/07/17 10:00 07/07/17 10:00 07/07/17 06:00 07/07/17 10:00 07/06/17 21:00 Active Medications Acetaminophen (Tylenol -) 650 mg PO Q4H PRN PRN Reason: FEVER Albuterol/Ipratropium (Duoneb -) 1 amp NEB Q4H PRN PRN Reason: SHORTNESS OF BREATH Calcium Carbonate/Cholecalciferol (Os-Leo 500+D -) 1 tab PO DAILY [facility] Last Admin: 07/07/17 11:16 Dose: Not Given Chlorhexidine Gluconate (Hibiclens For Decolonization -) 1 applic TP HS [facility] Last Admin: 07/06/17 22:00 Dose: 1 applic Diphenhydramine HCl (Benadryl -) 25 mg PO Q6H PRN PRN Reason: FOR ITCHING Famotidine/Sodium Chloride (Pepcid 20 Mg Premixed Ivpb -) 20 mg in 50 mls @ 144 mls/hr IVPB BID [facility] Last Admin: 07/07/17 11:15 Dose: 144 mls/hr Aztreonam (Azactam (Restricted To Id) -) 1 gm in 10 mls @ 120 mls/hr IVPUSH BID [facility] PRN Reason: Protocol Last Admin: 07/07/17 11:16 Dose: 120 mls/hr Dextrose/Sodium Chloride (D5-Ns -) 1,000 mls @ 50 mls/hr IV ASDIR [facility] Last Admin: 07/07/17 11:09 Dose: 50 mls/hr [place] Carbonate (Eskalith -) 150 mg PO HS [facility] Last Admin: 07/06/17 21:53 Dose: Not Given Mupirocin (Bactroban Ointment (For Decolonization) -) 1 applic NS BID OSMAN Stop: 07/10/17 21:59 Last Admin: 07/07/17 11:16 Dose: 1 applic Polyethylene Glycol (Miralax (For Daily Use) -) 17 gm PO DAILY OSMAN Last Admin: 07/07/17 11:16 Dose: Not Given Gen: lethargic, mildly tachypneic Heart: RRR Lung: upper airway wheezing, scattered rhonchi Abd: soft, nontender Ext: no edema Laboratory Results - last 24 hr 07/05/17 07/05/17 07/06/17 08:55 08:55 06:00 WBC RBC Hgb Hct MCV MCH MCHC RDW Plt Count MPV Neutrophils % Lymphocytes % PT with INR INR PTT (Actin FS) Fibrinogen Puncture Site ABG pH ABG pCO2 at Pt Temp ABG pO2 at Pt Temp ABG HCO3 ABG O2 Sat (Measured) ABG O2 Content ABG Base Excess Jose Antonio Test Oxygen Flow Rate Sodium Potassium Chloride Carbon Dioxide Anion Gap BUN Creatinine Creat Clearance w eGFR Random Glucose Calcium Phosphorus Magnesium Total Bilirubin Direct Bilirubin AST ALT Alkaline Phosphatase Total Protein Albumin TSH 1.48 Urine Osmolality 292 L Ur Random Sodium Ur Random Potassium Ur Random Chloride Urine Creatinine Blood Type O POSITIVE Antibody Screen Negative Crossmatch See Detail 07/06/17 07/06/17 07/06/17 09:15 09:15 15:00 WBC RBC Hgb Hct MCV MCH MCHC RDW Plt Count MPV Neutrophils % Lymphocytes % PT with INR INR PTT (Actin FS) Fibrinogen Puncture Site ABG pH ABG pCO2 at Pt Temp ABG pO2 at Pt Temp ABG HCO3 ABG O2 Sat (Measured) ABG O2 Content ABG Base Excess Jose Antonio Test Oxygen Flow Rate Sodium 135 L Potassium 3.7 Chloride 109 H Carbon Dioxide 11 L Anion Gap 15 BUN 69 H Creatinine 2.9 H Creat Clearance w eGFR Random Glucose 89 Calcium 6.5 L* Phosphorus Magnesium Total Bilirubin Direct Bilirubin AST ALT Alkaline Phosphatase Total Protein Albumin TSH Urine Osmolality Ur Random Sodium 36 Ur Random Potassium 18.6 Ur Random Chloride 25 Urine Creatinine 60.8 Blood Type Antibody Screen Crossmatch 07/06/17 07/07/17 07/07/17 15:00 06:00 06:00 WBC 21.8 H RBC 3.81 D Hgb 10.6 L D Hct 32.4 D MCV 85.0 MCH 27.8 MCHC 32.7 RDW 15.0 Plt Count 48 L MPV 8.7 Neutrophils % No Result Required. Lymphocytes % No Result Required. PT with INR 15.20 H INR 1.35 H PTT (Actin FS) 29.7 Fibrinogen 579.0 H Puncture Site ABG pH ABG pCO2 at Pt Temp ABG pO2 at Pt Temp ABG HCO3 ABG O2 Sat (Measured) ABG O2 Content ABG Base Excess Jose Antonio Test Oxygen Flow Rate Sodium 135 L Potassium 3.7 Chloride 108 H Carbon Dioxide 12 L Anion Gap 15 BUN 72 H Creatinine 2.9 H Creat Clearance w eGFR 15.39 Random Glucose 136 H Calcium 7.1 L Phosphorus 5.6 H Magnesium 2.5 H Total Bilirubin 3.3 H D Direct Bilirubin 2.6 H AST 200 H ALT 190 H Alkaline Phosphatase 498 H Total Protein 4.8 L Albumin 1.6 L TSH Urine Osmolality Ur Random Sodium Ur Random Potassium Ur Random Chloride Urine Creatinine Blood Type Antibody Screen Crossmatch 07/07/17 07/07/17 07:25 07:30 WBC RBC Hgb Hct MCV MCH MCHC RDW Plt Count MPV Neutrophils % Lymphocytes % PT with INR INR PTT (Actin FS) Fibrinogen Puncture Site Right radial ABG pH 7.21 L* ABG pCO2 at Pt Temp 24.2 L ABG pO2 at Pt Temp 118.0 H ABG HCO3 9.3 L* ABG O2 Sat (Measured) 98.1 ABG O2 Content 16.0 ABG Base Excess -17.2 L* Jose Antonio Test Positive Oxygen Flow Rate Room air Sodium Potassium Chloride Carbon Dioxide Anion Gap BUN Creatinine Creat Clearance w eGFR Random Glucose Calcium Phosphorus Magnesium Total Bilirubin Direct Bilirubin Cancelled AST ALT Alkaline Phosphatase Total Protein Albumin TSH Urine Osmolality Ur Random Sodium Ur Random Potassium Ur Random Chloride Urine Creatinine Blood Type Antibody Screen Crossmatch ASSESSMENT AND PLAN: UTI/Obstructive Uropathy Acute Kidney Injury Gram Negative Bacteremia Severe Sepsis r/o DIC s/p Cystoscopy/Left Ureteral Stent Placement Thrombocytopenia Anemia Hyponatremia Bipolar Disorder - continue antibiotics per ID - f/u final cultures - (?) Bicarb supplementation - monitor urine output, creatinine - inhaled bronchodilators - taper FiO2 to keep SpO2 >90% - monitor lytes - monitor coags, check fibrinogen level - Normal transfusion thresholds - NPO until more alert - aspiration precautions - mechanical DVT prophylaxis Dr Rooney critical care time spent in reviewing chart, evaluating patient and formulating plan 35 min
--- NOTE | 2017-07-07 13:46 | CON.GI ---
Consult Consult Specialty:: GI Reason for Consultation:: abnormal liver enzymes - History of Present Illness History of Present Illness: Chart reviewed, events noted. Some of the pt's history obtained from the pt's son who was at the bedside. An 87 yof in ICU for severe sepsis with no prior documented history of liver disease was noted 2 days ago to have acutely elevated transaminases with cholestasis. The onset correlated with hypotensive episodes with systolic and diastolic blood pressure 87/33 on and 74/33 on at it's lowest. Prior to the patient had essentially normal liver chemistry and bilirubin. RUQ US showed fatty liver. 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/15/17) Endocrine: Yes: Diabetes Mellitus - Past Surgical History Past Surgical History: Yes: Cholecystectomy, Additional Surgical History: left hip replacement - Alcohol/Substance Use Hx Alcohol Use: No History of Substance Use: reports: None - Smoking History Smoking history: Former smoker Have you smoked in the past 12 months: No If you are a former smoker, when did you quit?: years ago - Social History ADL: Independent Occupation: retired History of Recent Travel: No Home Medications - Allergies Allergies/Adverse Reactions: Allergies Allergy/AdvReac Type Severity Reaction Status Date / Time Penicillins Allergy Severe Hives Verified 07/04/17 09:13 - Home Medications Home Medications: Ambulatory Orders Atenolol [Tenormin] 25 mg PO DAILY 09/15/16 Atorvastatin Ca [Lipitor] 10 mg PO HS 09/15/16 Cholecalciferol (Vitamin D3) [Vitamin D3] 2,000 unit PO DAILY 09/15/16 Marlette Carbonate [Eskalith -] 150 mg PO HS 09/15/16 Losartan Potassium 100 mg PO DAILY 09/15/16 Vitamin B Complex 1 each PO DAILY 10/10/16 Metformin HCl 500 mg PO DAILY 11/29/16 Rivaroxaban [Xarelto -] 10 mg PO DAILY 07/04/17 Family Disease History - Family Disease History Family History: Unremarkable (non-contributory) Family Disease History: Other: Daughter (depresssion ) Review of Systems Findings/Remarks: as per HPI, H&P Physical Exam-GI Vital Signs: Vital Signs Temperature 97.2 F L 07/07/17 12:00 Pulse Rate 84 07/07/17 12:00 Respiratory Rate 13 07/07/17 12:00 Blood Pressure 142/61 07/07/17 12:00 O2 Sat by Pulse Oximetry (%) 100 07/06/17 21:00 Constitutional: No: No Distress Eyes: Yes: Conjunctiva Clear HENT: Yes: Atraumatic Neck: Yes: Supple Cardiovascular: Yes: Regular Rate and Rhythm Gastrointestinal Inspection: No: Ascites, Distention ...Palpate: Yes: Soft. No: Firm/Rigid, Guarding, Tenderness Neurological: Yes: Alert, Confusion Labs: CBC, BMP 07/07/17 06:00 07/07/17 06:00 INR, PTT INR 1.35 (0.82-1.09) H 07/06/17 15:00 Fibrinogen 579.0 mg/dL (238-498) H 07/06/17 15:00 Laboratory Tests 07/04/17 07/04/17 07/04/17 10:10 10:10 10:10 WBC 17.4 H RBC 3.48 L Hgb 9.8 L D Hct 29.6 L MCV 85.1 MCH 28.2 MCHC 33.1 RDW 14.0 D Plt Count 67 L MPV 10.7 Neutrophils % No Result Required. Neutrophils % (Manual) 69.0 Band Neutrophils % 17.0 H Lymphocytes % No Result Required. Lymphocytes % (Manual) 9.0 Monocytes % Monocytes % (Manual) 5 Eosinophils % Eosinophils % (Manual) Basophils % Basophils % (Manual) Myelocytes % (Man) Metamyelocytes Hypochromia Platelet Estimate Decreased Polychromasia Poikilocytosis Anisocytosis Microcytosis Macrocytosis Lee Cells Acanthocytes (Spur) PT with INR Cancelled INR Cancelled PTT (Actin FS) Fibrinogen Puncture Site ABG pH ABG pCO2 at Pt Temp ABG pO2 at Pt Temp ABG HCO3 ABG O2 Sat (Measured) ABG O2 Content ABG Base Excess Jose Antonio Test Oxygen Flow Rate Sodium Cancelled Potassium Cancelled Chloride Cancelled Carbon Dioxide Cancelled Anion Gap Cancelled BUN Cancelled Creatinine Cancelled Creat Clearance w eGFR Cancelled POC Glucometer Random Glucose Cancelled Serum Osmolality Lactic Acid Calcium Cancelled Phosphorus Magnesium Total Bilirubin Cancelled Direct Bilirubin AST Cancelled ALT Cancelled Alkaline Phosphatase Cancelled Creatine Kinase Cancelled Troponin I Cancelled Total Protein Cancelled Albumin Cancelled TSH Cortisol AM Sample Urine Color Urine Appearance Urine pH Ur Specific [place] Urine Protein Urine Glucose (UA) Urine Ketones Urine Blood Urine Nitrite Urine Bilirubin Urine Urobilinogen Urine RBC Urine WBC Ur Epithelial Cells Urine Bacteria Urine Osmolality Ur Random Sodium Ur Random Potassium Ur Random Chloride Urine Creatinine Marlette Blood Type Antibody Screen Crossmatch 07/04/17 07/04/17 07/04/17 10:10 10:50 12:30 WBC RBC Hgb Hct MCV MCH MCHC RDW Plt Count MPV Neutrophils % Neutrophils % (Manual) Band Neutrophils % Lymphocytes % Lymphocytes % (Manual) Monocytes % Monocytes % (Manual) Eosinophils % Eosinophils % (Manual) Basophils % Basophils % (Manual) Myelocytes % (Man) Metamyelocytes Hypochromia Platelet Estimate Polychromasia Poikilocytosis Anisocytosis Microcytosis Macrocytosis Lee Cells Acanthocytes (Spur) PT with INR 20.1 H INR 1.82 H PTT (Actin FS) Fibrinogen Puncture Site ABG pH ABG pCO2 at Pt Temp ABG pO2 at Pt Temp ABG HCO3 ABG O2 Sat (Measured) ABG O2 Content ABG Base Excess Jose Antonio Test Oxygen Flow Rate Sodium Potassium Chloride Carbon Dioxide Anion Gap BUN Creatinine Creat Clearance w eGFR POC Glucometer Random Glucose Serum Osmolality Lactic Acid 1.6 Calcium Phosphorus Magnesium Total Bilirubin Direct Bilirubin AST ALT Alkaline Phosphatase Creatine Kinase Troponin I Total Protein Albumin TSH Cortisol AM Sample Urine Color Yellow Urine Appearance Clear Urine pH 5.0 Ur Specific [place] 1.010 Urine Protein 2+ H Urine Glucose (UA) Negative Urine Ketones Trace Urine Blood 1+ H Urine Nitrite Negative Urine Bilirubin Negative Urine Urobilinogen 0.2 Urine RBC 2-5 Urine WBC 15-30 Ur Epithelial Cells Few Urine Bacteria Many Urine Osmolality Ur Random Sodium Ur Random Potassium Ur Random Chloride Urine Creatinine Marlette Blood Type Antibody Screen Crossmatch 07/04/17 07/04/17 07/04/17 12:30 12:30 14:27 WBC RBC Hgb Hct MCV MCH MCHC RDW Plt Count MPV Neutrophils % Neutrophils % (Manual) Band Neutrophils % Lymphocytes % Lymphocytes % (Manual) Monocytes % Monocytes % (Manual) Eosinophils % Eosinophils % (Manual) Basophils % Basophils % (Manual) Myelocytes % (Man) Metamyelocytes Hypochromia Platelet Estimate Polychromasia Poikilocytosis Anisocytosis Microcytosis Macrocytosis Lee Cells Acanthocytes (Spur) PT with INR INR PTT (Actin FS) Fibrinogen Puncture Site ABG pH ABG pCO2 at Pt Temp ABG pO2 at Pt Temp ABG HCO3 ABG O2 Sat (Measured) ABG O2 Content ABG Base Excess Jose Antonio Test Oxygen Flow Rate Sodium 119 L* D 118 L* Potassium 5.3 H D 5.1 Chloride 94 L D 95 L Carbon Dioxide 14 L D 12 L Anion Gap 11 11 BUN 68 H D 67 H Creatinine 3.6 H D 3.6 H Creat Clearance w eGFR 11.99 POC Glucometer Random Glucose 60 L D 55 L Serum Osmolality Lactic Acid Calcium 7.1 L 6.7 L* Phosphorus 2.8 Magnesium 1.3 L Total Bilirubin 0.7 D Direct Bilirubin AST 38 D ALT 34 Alkaline Phosphatase 107 H D Creatine Kinase Troponin I Total Protein 5.0 L D Albumin 2.2 L D TSH Cortisol AM Sample Urine Color Urine Appearance Urine pH Ur Specific [place] Urine Protein Urine Glucose (UA) Urine Ketones Urine Blood Urine Nitrite Urine Bilirubin Urine Urobilinogen Urine RBC Urine WBC Ur Epithelial Cells Urine Bacteria Urine Osmolality Ur Random Sodium Ur Random Potassium Ur Random Chloride Urine Creatinine Marlette 0.8 Blood Type Antibody Screen Crossmatch 07/04/17 07/04/17 07/04/17 16:18 16:47 19:30 WBC RBC Hgb Hct MCV MCH MCHC RDW Plt Count MPV Neutrophils % Neutrophils % (Manual) Band Neutrophils % Lymphocytes % Lymphocytes % (Manual) Monocytes % Monocytes % (Manual) Eosinophils % Eosinophils % (Manual) Basophils % Basophils % (Manual) Myelocytes % (Man) Metamyelocytes Hypochromia Platelet Estimate Polychromasia Poikilocytosis Anisocytosis Microcytosis Macrocytosis Lee Cells Acanthocytes (Spur) PT with INR INR PTT (Actin FS) Fibrinogen Puncture Site ABG pH ABG pCO2 at Pt Temp ABG pO2 at Pt Temp ABG HCO3 ABG O2 Sat (Measured) ABG O2 Content ABG Base Excess Jose Antonio Test Oxygen Flow Rate Sodium 119 L* Potassium 4.7 Chloride 94 L Carbon Dioxide 15 L D Anion Gap 10 BUN 67 H Creatinine 3.6 H Creat Clearance w eGFR POC Glucometer 55 177 Random Glucose 101 D Serum Osmolality Lactic Acid Calcium 6.7 L* Phosphorus Magnesium Total Bilirubin Direct Bilirubin AST ALT Alkaline Phosphatase Creatine Kinase Troponin I Total Protein Albumin TSH Cortisol AM Sample Urine Color Urine Appearance Urine pH Ur Specific [place] Urine Protein Urine Glucose (UA) Urine Ketones Urine Blood Urine Nitrite Urine Bilirubin Urine Urobilinogen Urine RBC Urine WBC Ur Epithelial Cells Urine Bacteria Urine Osmolality Ur Random Sodium Ur Random Potassium Ur Random Chloride Urine Creatinine Marlette Blood Type Antibody Screen Crossmatch 07/04/17 07/04/17 07/05/17 23:00 23:27 01:20 WBC RBC Hgb Hct MCV MCH MCHC RDW Plt Count MPV Neutrophils % Neutrophils % (Manual) Band Neutrophils % Lymphocytes % Lymphocytes % (Manual) Monocytes % Monocytes % (Manual) Eosinophils % Eosinophils % (Manual) Basophils % Basophils % (Manual) Myelocytes % (Man) Metamyelocytes Hypochromia Platelet Estimate Polychromasia Poikilocytosis Anisocytosis Microcytosis Macrocytosis Lauro Cells Acanthocytes (Spur) PT with INR INR PTT (Actin FS) Fibrinogen Puncture Site ABG pH ABG pCO2 at Pt Temp ABG pO2 at Pt Temp ABG HCO3 ABG O2 Sat (Measured) ABG O2 Content ABG Base Excess Jose Antonio Test Oxygen Flow Rate Sodium 127 L Potassium 4.8 Chloride 99 Carbon Dioxide 13 L Anion Gap 15 BUN 66 H Creatinine 3.4 H Creat Clearance w eGFR POC Glucometer Random Glucose 64 L Serum Osmolality 275 L Lactic Acid Calcium 6.6 L* Phosphorus Magnesium Total Bilirubin Direct Bilirubin AST ALT Alkaline Phosphatase Creatine Kinase Troponin I Total Protein Albumin TSH Cortisol AM Sample Urine Color Urine Appearance Urine pH Ur Specific [place] Urine Protein Urine Glucose (UA) Urine Ketones Urine Blood Urine Nitrite Urine Bilirubin Urine Urobilinogen Urine RBC Urine WBC Ur Epithelial Cells Urine Bacteria Urine Osmolality 246 L Ur Random Sodium 22 Ur Random Potassium 27.9 Ur Random Chloride 20 Urine Creatinine Marlette Blood Type Antibody Screen Crossmatch 07/05/17 07/05/17 07/05/17 01:20 06:30 06:30 WBC 12.6 H 14.8 H RBC 2.74 L D 2.71 L D Hgb 7.5 L D 7.6 L D Hct 23.1 L D 23.3 L D MCV 84.1 86.1 MCH 27.2 28.2 MCHC 32.3 32.7 RDW 14.8 14.2 Plt Count 40 L D 35 L* MPV 9.3 9.2 Neutrophils % No Result Required. 81.7 Neutrophils % (Manual) 85.1 H Band Neutrophils % 5.0 Lymphocytes % No Result Required. 7.9 L Lymphocytes % (Manual) 3.0 L Monocytes % 7.5 Monocytes % (Manual) 6 Eosinophils % 2.8 Eosinophils % (Manual) 0.0 Basophils % 0.1 Basophils % (Manual) 0.0 Myelocytes % (Man) 0 Metamyelocytes 1 Hypochromia 1+ Platelet Estimate Decreased Polychromasia 1+ Poikilocytosis 3+ Anisocytosis 2+ Microcytosis 2+ Macrocytosis 0 Lauro Cells 2+ Acanthocytes (Spur) 1+ PT with INR INR PTT (Actin FS) Fibrinogen Puncture Site ABG pH ABG pCO2 at Pt Temp ABG pO2 at Pt Temp ABG HCO3 ABG O2 Sat (Measured) ABG O2 Content ABG Base Excess Jose Antonio Test Oxygen Flow Rate Sodium 124 L* Potassium 4.4 Chloride 97 L Carbon Dioxide 11 L D Anion Gap 16 BUN 69 H Creatinine 3.5 H Creat Clearance w eGFR 12.38 POC Glucometer Random Glucose 62 L D Serum Osmolality Lactic Acid Calcium 6.7 L* Phosphorus Magnesium Total Bilirubin 0.8 Direct Bilirubin AST 59 H D ALT 47 H D Alkaline Phosphatase 120 H Creatine Kinase Troponin I Total Protein 4.1 L Albumin 1.9 L TSH Cortisol AM Sample Urine Color Urine Appearance Urine pH Ur Specific [place] Urine Protein Urine Glucose (UA) Urine Ketones Urine Blood Urine Nitrite Urine Bilirubin Urine Urobilinogen Urine RBC Urine WBC Ur Epithelial Cells Urine Bacteria Urine Osmolality Ur Random Sodium Ur Random Potassium Ur Random Chloride Urine Creatinine Marlette Blood Type Antibody Screen Crossmatch 07/05/17 07/05/17 07/05/17 07:39 08:00 08:42 WBC RBC Hgb Hct MCV MCH MCHC RDW Plt Count MPV Neutrophils % Neutrophils % (Manual) Band Neutrophils % Lymphocytes % Lymphocytes % (Manual) Monocytes % Monocytes % (Manual) Eosinophils % Eosinophils % (Manual) Basophils % Basophils % (Manual) Myelocytes % (Man) Metamyelocytes Hypochromia Platelet Estimate Polychromasia Poikilocytosis Anisocytosis Microcytosis Macrocytosis Lauro Cells Acanthocytes (Spur) PT with INR INR PTT (Actin FS) Fibrinogen Puncture Site ABG pH ABG pCO2 at Pt Temp ABG pO2 at Pt Temp ABG HCO3 ABG O2 Sat (Measured) ABG O2 Content ABG Base Excess Jose Antonio Test Oxygen Flow Rate Sodium Potassium Chloride Carbon Dioxide Anion Gap BUN Creatinine Creat Clearance w eGFR POC Glucometer 67 Random Glucose Serum Osmolality Lactic Acid Calcium Phosphorus Magnesium Total Bilirubin Direct Bilirubin AST ALT Alkaline Phosphatase Creatine Kinase Troponin I Total Protein Albumin TSH Cortisol AM Sample 17.9 Urine Color Urine Appearance Urine pH Ur Specific [place] Urine Protein Urine Glucose (UA) Urine Ketones Urine Blood Urine Nitrite Urine Bilirubin Urine Urobilinogen Urine RBC Urine WBC Ur Epithelial Cells Urine Bacteria Urine Osmolality Ur Random Sodium Ur Random Potassium Ur Random Chloride Urine Creatinine Marlette Blood Type O POSITIVE Antibody Screen Crossmatch See Detail 07/05/17 07/05/17 07/05/17 08:50 08:55 08:55 WBC RBC Hgb Hct MCV MCH MCHC RDW Plt Count MPV Neutrophils % Neutrophils % (Manual) Band Neutrophils % Lymphocytes % Lymphocytes % (Manual) Monocytes % Monocytes % (Manual) Eosinophils % Eosinophils % (Manual) Basophils % Basophils % (Manual) Myelocytes % (Man) Metamyelocytes Hypochromia Platelet Estimate Polychromasia Poikilocytosis Anisocytosis Microcytosis Macrocytosis Lauro Cells Acanthocytes (Spur) PT with INR 15.4 H INR 1.38 H PTT (Actin FS) 33.4 Fibrinogen Puncture Site ABG pH ABG pCO2 at Pt Temp ABG pO2 at Pt Temp ABG HCO3 ABG O2 Sat (Measured) ABG O2 Content ABG Base Excess Jose Antonio Test Oxygen Flow Rate Sodium 122 L* Potassium 4.2 Chloride 98 Carbon Dioxide 10 L Anion Gap 14 BUN 71 H Creatinine 3.5 H Creat Clearance w eGFR 12.38 POC Glucometer Random Glucose 77 D Serum Osmolality Lactic Acid Calcium 6.6 L* Phosphorus 4.1 D Magnesium 2.2 D 1.9 Total Bilirubin 0.6 Direct Bilirubin AST 57 H ALT 47 H Alkaline Phosphatase 117 H Creatine Kinase Troponin I Total Protein 4.3 L Albumin 1.8 L TSH 1.48 Cortisol AM Sample Urine Color Urine Appearance Urine pH Ur Specific [place] Urine Protein Urine Glucose (UA) Urine Ketones Urine Blood Urine Nitrite Urine Bilirubin Urine Urobilinogen Urine RBC Urine WBC Ur Epithelial Cells Urine Bacteria Urine Osmolality Ur Random Sodium Ur Random Potassium Ur Random Chloride Urine Creatinine Marlette Blood Type Antibody Screen Crossmatch 07/05/17 07/05/17 07/05/17 08:55 12:39 15:11 WBC RBC Hgb Hct MCV MCH MCHC RDW Plt Count MPV Neutrophils % Neutrophils % (Manual) Band Neutrophils % Lymphocytes % Lymphocytes % (Manual) Monocytes % Monocytes % (Manual) Eosinophils % Eosinophils % (Manual) Basophils % Basophils % (Manual) Myelocytes % (Man) Metamyelocytes Hypochromia Platelet Estimate Polychromasia Poikilocytosis Anisocytosis Microcytosis Macrocytosis Lee Cells Acanthocytes (Spur) PT with INR INR PTT (Actin FS) Fibrinogen Puncture Site ABG pH ABG pCO2 at Pt Temp ABG pO2 at Pt Temp ABG HCO3 ABG O2 Sat (Measured) ABG O2 Content ABG Base Excess Jose Antonio Test Oxygen Flow Rate Sodium 124 L* Potassium 3.7 Chloride 99 Carbon Dioxide 11 L Anion Gap 14 BUN 70 H Creatinine 3.4 H Creat Clearance w eGFR 12.81 POC Glucometer 79 Random Glucose 85 Serum Osmolality Lactic Acid Calcium 6.5 L* Phosphorus Magnesium Total Bilirubin 0.7 Direct Bilirubin AST 60 H ALT 49 H Alkaline Phosphatase 124 H Creatine Kinase Troponin I Total Protein 4.4 L Albumin 1.9 L TSH Cortisol AM Sample Urine Color Urine Appearance Urine pH Ur Specific [place] Urine Protein Urine Glucose (UA) Urine Ketones Urine Blood Urine Nitrite Urine Bilirubin Urine Urobilinogen Urine RBC Urine WBC Ur Epithelial Cells Urine Bacteria Urine Osmolality Ur Random Sodium Ur Random Potassium Ur Random Chloride Urine Creatinine Marlette Blood Type O POSITIVE Antibody Screen Negative Crossmatch See Detail 07/05/17 07/05/17 07/06/17 16:00 21:43 05:10 WBC 15.8 H 17.0 H D RBC 2.76 L 2.73 L Hgb 7.7 L 7.5 L Hct 23.6 L 23.1 L MCV 85.4 84.5 MCH 28.0 27.5 MCHC 32.7 32.6 RDW 14.5 15.5 Plt Count 80 L 57 L D MPV 7.6 8.6 Neutrophils % 91.4 H Neutrophils % (Manual) Band Neutrophils % Lymphocytes % 2.0 L Lymphocytes % (Manual) Monocytes % 3.7 L Monocytes % (Manual) Eosinophils % 2.8 Eosinophils % (Manual) Basophils % 0.1 Basophils % (Manual) Myelocytes % (Man) Metamyelocytes Hypochromia Platelet Estimate Polychromasia Poikilocytosis Anisocytosis Microcytosis Macrocytosis Lauro Cells Acanthocytes (Spur) PT with INR INR PTT (Actin FS) Fibrinogen Puncture Site ABG pH ABG pCO2 at Pt Temp ABG pO2 at Pt Temp ABG HCO3 ABG O2 Sat (Measured) ABG O2 Content ABG Base Excess Jose Antonio Test Oxygen Flow Rate Sodium 129 L Potassium 3.7 Chloride 102 Carbon Dioxide 13 L Anion Gap 14 BUN 71 H Creatinine 3.4 H Creat Clearance w eGFR POC Glucometer Random Glucose 80 Serum Osmolality Lactic Acid Calcium 7.5 L Phosphorus Magnesium Total Bilirubin Direct Bilirubin AST ALT Alkaline Phosphatase Creatine Kinase Troponin I Total Protein Albumin TSH Cortisol AM Sample Urine Color Urine Appearance Urine pH Ur Specific [place] Urine Protein Urine Glucose (UA) Urine Ketones Urine Blood Urine Nitrite Urine Bilirubin Urine Urobilinogen Urine RBC Urine WBC Ur Epithelial Cells Urine Bacteria Urine Osmolality Ur Random Sodium Ur Random Potassium Ur Random Chloride Urine Creatinine [place] Blood Type Antibody Screen Crossmatch 07/06/17 07/06/17 07/06/17 05:10 05:10 06:00 WBC RBC Hgb Hct MCV MCH MCHC RDW Plt Count MPV Neutrophils % Neutrophils % (Manual) Band Neutrophils % Lymphocytes % Lymphocytes % (Manual) Monocytes % Monocytes % (Manual) Eosinophils % Eosinophils % (Manual) Basophils % Basophils % (Manual) Myelocytes % (Man) Metamyelocytes Hypochromia Platelet Estimate Polychromasia Poikilocytosis Anisocytosis Microcytosis Macrocytosis Lauro Cells Acanthocytes (Spur) PT with INR INR PTT (Actin FS) Fibrinogen Puncture Site ABG pH ABG pCO2 at Pt Temp ABG pO2 at Pt Temp ABG HCO3 ABG O2 Sat (Measured) ABG O2 Content ABG Base Excess Jose Antonio Test Oxygen Flow Rate Sodium 132 L Potassium 4.0 Chloride 104 Carbon Dioxide 13 L Anion Gap 15 BUN 73 H Creatinine 3.1 H Creat Clearance w eGFR 14.25 POC Glucometer Random Glucose 51 L Serum Osmolality Lactic Acid Calcium 7.2 L Phosphorus 5.5 H Cancelled Magnesium 2.6 H Cancelled Total Bilirubin 1.2 H Direct Bilirubin AST 117 H ALT 96 H Alkaline Phosphatase 247 H Creatine Kinase Troponin I Total Protein 4.3 L Albumin 1.6 L TSH Cortisol AM Sample Urine Color Urine Appearance Urine pH Ur Specific [place] Urine Protein Urine Glucose (UA) Urine Ketones Urine Blood Urine Nitrite Urine Bilirubin Urine Urobilinogen Urine RBC Urine WBC Ur Epithelial Cells Urine Bacteria Urine Osmolality 292 L Ur Random Sodium Ur Random Potassium Ur Random Chloride Urine Creatinine Marlette Blood Type Antibody Screen Crossmatch 07/06/17 07/06/17 07/06/17 09:12 09:15 09:15 WBC RBC Hgb Hct MCV MCH MCHC RDW Plt Count MPV Neutrophils % Neutrophils % (Manual) Band Neutrophils % Lymphocytes % Lymphocytes % (Manual) Monocytes % Monocytes % (Manual) Eosinophils % Eosinophils % (Manual) Basophils % Basophils % (Manual) Myelocytes % (Man) Metamyelocytes Hypochromia Platelet Estimate Polychromasia Poikilocytosis Anisocytosis Microcytosis Macrocytosis Lee Cells Acanthocytes (Spur) PT with INR INR PTT (Actin FS) Fibrinogen Puncture Site ABG pH ABG pCO2 at Pt Temp ABG pO2 at Pt Temp ABG HCO3 ABG O2 Sat (Measured) ABG O2 Content ABG Base Excess Jose Antonio Test Oxygen Flow Rate Sodium Potassium Chloride Carbon Dioxide Anion Gap BUN Creatinine Creat Clearance w eGFR POC Glucometer 57.41375 Random Glucose Serum Osmolality Lactic Acid Calcium Phosphorus Magnesium Total Bilirubin Direct Bilirubin AST ALT Alkaline Phosphatase Creatine Kinase Troponin I Total Protein Albumin TSH Cortisol AM Sample Urine Color Urine Appearance Urine pH Ur Specific [place] Urine Protein Urine Glucose (UA) Urine Ketones Urine Blood Urine Nitrite Urine Bilirubin Urine Urobilinogen Urine RBC Urine WBC Ur Epithelial Cells Urine Bacteria Urine Osmolality Ur Random Sodium 36 Ur Random Potassium 18.6 Ur Random Chloride 25 Urine Creatinine 60.8 Marlette Blood Type Antibody Screen Crossmatch 07/06/17 07/06/17 07/06/17 11:20 15:00 15:00 WBC RBC Hgb Hct MCV MCH MCHC RDW Plt Count MPV Neutrophils % Neutrophils % (Manual) Band Neutrophils % Lymphocytes % Lymphocytes % (Manual) Monocytes % Monocytes % (Manual) Eosinophils % Eosinophils % (Manual) Basophils % Basophils % (Manual) Myelocytes % (Man) Metamyelocytes Hypochromia Platelet Estimate Polychromasia Poikilocytosis Anisocytosis Microcytosis Macrocytosis Lauro Cells Acanthocytes (Spur) PT with INR 15.20 H INR 1.35 H PTT (Actin FS) 29.7 Fibrinogen 579.0 H Puncture Site ABG pH ABG pCO2 at Pt Temp ABG pO2 at Pt Temp ABG HCO3 ABG O2 Sat (Measured) ABG O2 Content ABG Base Excess Jsoe Antonio Test Oxygen Flow Rate Sodium 135 L Potassium 3.7 Chloride 109 H Carbon Dioxide 11 L Anion Gap 15 BUN 69 H Creatinine 2.9 H Creat Clearance w eGFR POC Glucometer 150.36732 Random Glucose 89 Serum Osmolality Lactic Acid Calcium 6.5 L* Phosphorus Magnesium Total Bilirubin Direct Bilirubin AST ALT Alkaline Phosphatase Creatine Kinase Troponin I Total Protein Albumin TSH Cortisol AM Sample Urine Color Urine Appearance Urine pH Ur Specific [place] Urine Protein Urine Glucose (UA) Urine Ketones Urine Blood Urine Nitrite Urine Bilirubin Urine Urobilinogen Urine RBC Urine WBC Ur Epithelial Cells Urine Bacteria Urine Osmolality Ur Random Sodium Ur Random Potassium Ur Random Chloride Urine Creatinine Marlette Blood Type Antibody Screen Crossmatch 07/07/17 07/07/17 07/07/17 06:00 06:00 07:25 WBC 21.8 H RBC 3.81 D Hgb 10.6 L D Hct 32.4 D MCV 85.0 MCH 27.8 MCHC 32.7 RDW 15.0 Plt Count 48 L MPV 8.7 Neutrophils % No Result Required. Neutrophils % (Manual) 85.0 H Band Neutrophils % 3.0 Lymphocytes % No Result Required. Lymphocytes % (Manual) 3.0 L Monocytes % Monocytes % (Manual) 7 Eosinophils % Eosinophils % (Manual) 1.0 D Basophils % Basophils % (Manual) 0.0 Myelocytes % (Man) 1 D Metamyelocytes 0 D Hypochromia 0 Platelet Estimate Decreased Polychromasia 0 Poikilocytosis 2+ Anisocytosis 1+ Microcytosis 0 Macrocytosis 0 Lauro Cells Acanthocytes (Spur) PT with INR INR PTT (Actin FS) Fibrinogen Puncture Site Right radial ABG pH 7.21 L* ABG pCO2 at Pt Temp 24.2 L ABG pO2 at Pt Temp 118.0 H ABG HCO3 9.3 L* ABG O2 Sat (Measured) 98.1 ABG O2 Content 16.0 ABG Base Excess -17.2 L* Jose Antonio Test Positive Oxygen Flow Rate Room air Sodium 135 L Potassium 3.7 Chloride 108 H Carbon Dioxide 12 L Anion Gap 15 BUN 72 H Creatinine 2.9 H Creat Clearance w eGFR 15.39 POC Glucometer Random Glucose 136 H Serum Osmolality Lactic Acid Calcium 7.1 L Phosphorus 5.6 H Magnesium 2.5 H Total Bilirubin 3.3 H D Direct Bilirubin 2.6 H AST 200 H ALT 190 H Alkaline Phosphatase 498 H Creatine Kinase Troponin I Total Protein 4.8 L Albumin 1.6 L TSH Cortisol AM Sample Urine Color Urine Appearance Urine pH Ur Specific [place] Urine Protein Urine Glucose (UA) Urine Ketones Urine Blood Urine Nitrite Urine Bilirubin Urine Urobilinogen Urine RBC Urine WBC Ur Epithelial Cells Urine Bacteria Urine Osmolality Ur Random Sodium Ur Random Potassium Ur Random Chloride Urine Creatinine Marlette Blood Type Antibody Screen Crossmatch 07/07/17 07:30 WBC RBC Hgb Hct MCV MCH MCHC RDW Plt Count MPV Neutrophils % Neutrophils % (Manual) Band Neutrophils % Lymphocytes % Lymphocytes % (Manual) Monocytes % Monocytes % (Manual) Eosinophils % Eosinophils % (Manual) Basophils % Basophils % (Manual) Myelocytes % (Man) Metamyelocytes Hypochromia Platelet Estimate Polychromasia Poikilocytosis Anisocytosis Microcytosis Macrocytosis Lauro Cells Acanthocytes (Spur) PT with INR INR PTT (Actin FS) Fibrinogen Puncture Site ABG pH ABG pCO2 at Pt Temp ABG pO2 at Pt Temp ABG HCO3 ABG O2 Sat (Measured) ABG O2 Content ABG Base Excess Jose Antonio Test Oxygen Flow Rate Sodium Potassium Chloride Carbon Dioxide Anion Gap BUN Creatinine Creat Clearance w eGFR POC Glucometer Random Glucose Serum Osmolality Lactic Acid Calcium Phosphorus Magnesium Total Bilirubin Direct Bilirubin Cancelled AST ALT Alkaline Phosphatase Creatine Kinase Troponin I Total Protein Albumin TSH Cortisol AM Sample Urine Color Urine Appearance Urine pH Ur Specific [place] Urine Protein Urine Glucose (UA) Urine Ketones Urine Blood Urine Nitrite Urine Bilirubin Urine Urobilinogen Urine RBC Urine WBC Ur Epithelial Cells Urine Bacteria Urine Osmolality Ur Random Sodium Ur Random Potassium Ur Random Chloride Urine Creatinine Marlette Blood Type Antibody Screen Crossmatch Imaging - Results Ultrasound: Report Reviewed Problem List - Problems (1) Transaminasemia Code(s): R74.0 - NONSPEC ELEV OF LEVELS OF TRANSAMNS & LACTIC ACID DEHYDRGNSE (2) Cholestasis Code(s): K83.1 - OBSTRUCTION OF BILE DUCT Assessment/Plan Strongly suspect ischemic hepatopathy, however cannot exclude effects of sepsis and medications. Underlyng NAFLD. Daily liver chemistry, PT, INR, Direct and indirect bilirubin Avoid prolonged episodes of hypotension Consider only essential medications will follow
[2017-07-07 14:01] LABS: ANISOCYTOSIS 1+; MACROCYTOSIS 0; PLATELET ESTIMATE DECREASED
--- NOTE | 2017-07-07 15:26 | PN ---
Progress Note, Physician History of Present Illness: Pt seen and examined at bedside. She is more awake today. Her son is at bedside and care was discussed with him. - Current Medication List Current Medications: Active Medications Acetaminophen (Tylenol -) 650 mg PO Q4H PRN PRN Reason: FEVER Albuterol/Ipratropium (Duoneb -) 1 amp NEB Q4H PRN PRN Reason: SHORTNESS OF BREATH Calcium Carbonate/Cholecalciferol (Os-Leo 500+D -) 1 tab PO DAILY [facility] Last Admin: 07/07/17 11:16 Dose: Not Given Chlorhexidine Gluconate (Hibiclens For Decolonization -) 1 applic TP [facility] Last Admin: 07/06/17 22:00 Dose: 1 applic Diphenhydramine HCl (Benadryl -) 25 mg PO Q6H PRN PRN Reason: FOR ITCHING Famotidine/Sodium Chloride (Pepcid 20 Mg Premixed Ivpb -) 20 mg in 50 mls @ 144 mls/hr IVPB BID [facility] Last Admin: 07/07/17 11:15 Dose: 144 mls/hr Aztreonam (Azactam (Restricted To Id) -) 1 gm in 10 mls @ 120 mls/hr IVPUSH BID [facility] PRN Reason: Protocol Last Admin: 07/07/17 11:16 Dose: 120 mls/hr Dextrose/Sodium Chloride (D5-Ns -) 1,000 mls @ 50 mls/hr IV ASDIR [facility] Last Admin: 07/07/17 11:09 Dose: 50 mls/hr [place] Carbonate (Eskalith -) 150 mg PO HS [facility] Last Admin: 07/06/17 21:53 Dose: Not Given Mupirocin (Bactroban Ointment (For Decolonization) -) 1 applic NS BID [facility] Stop: 07/10/17 21:59 Last Admin: 07/07/17 11:16 Dose: 1 applic Polyethylene Glycol (Miralax (For Daily Use) -) 17 gm PO DAILY [facility] Last Admin: 07/07/17 11:16 Dose: Not Given - Objective Vital Signs: Vital Signs Temperature 97.2 F L 07/07/17 12:00 Pulse Rate 84 07/07/17 12:00 Respiratory Rate 13 07/07/17 12:00 Blood Pressure 142/61 07/07/17 12:00 O2 Sat by Pulse Oximetry (%) 100 07/06/17 21:00 Constitutional: Yes: Anxious Eyes: Yes: Conjunctiva Clear HENT: Yes: Atraumatic Neck: Yes: Supple Cardiovascular: Yes: S1, S2 Respiratory: Yes: On Nasal O2 Gastrointestinal: Yes: Normal Bowel Sounds, Soft Genitourinary: Yes: Johnson Present Musculoskeletal: Yes: Muscle Weakness Edema: No Edema: LUE: 1+, RUE: 1+, LLE: Trace, RLE: Trace Neurological: Yes: Confusion Labs: CBC, BMP 07/07/17 06:00 07/07/17 06:00 INR, PTT INR 1.35 (0.82-1.09) H 07/06/17 15:00 Fibrinogen 579.0 mg/dL (238-498) H 07/06/17 15:00 Problem List - Problems (1) MICAELA (acute kidney injury) Code(s): N17.9 - ACUTE KIDNEY FAILURE, UNSPECIFIED (2) Dehydration Code(s): E86.0 - DEHYDRATION (3) Depression Code(s): F32.9 - MAJOR DEPRESSIVE DISORDER, SINGLE EPISODE, UNSPECIFIED (4) Electrolyte imbalance Code(s): E87.8 - OTH DISORDERS OF ELECTROLYTE AND FLUID BALANCE, NEC (5) Hypertension Code(s): I10 - ESSENTIAL (PRIMARY) HYPERTENSION (6) Hypoglycemia Code(s): E16.2 - HYPOGLYCEMIA, UNSPECIFIED (7) Hyponatremia Code(s): E87.1 - HYPO-OSMOLALITY AND HYPONATREMIA (8) Kidney stone on left side Code(s): N20.0 - CALCULUS OF KIDNEY (9) Leukocytosis Code(s): D72.829 - ELEVATED WHITE BLOOD CELL COUNT, UNSPECIFIED Qualifiers: Leukocytosis type: bandemia Qualified Code(s): D72.825 - Bandemia (10) Obstructive uropathy Code(s): N13.9 - OBSTRUCTIVE AND REFLUX UROPATHY, UNSPECIFIED Assessment/Plan Current Medications Generic Name Dose Route Start Last Admin Trade Name Freq PRN Reason Stop Dose Admin Acetaminophen 650 mg 07/05/17 16:53 Tylenol - PO Q4H PRN FEVER Albuterol/Ipratropium 1 amp 07/06/17 12:52 Duoneb - NEB Q4H PRN SHORTNESS OF BREATH Calcium Carbonate/Cholecalciferol 1 tab 07/06/17 10:00 07/07/17 11:16 Os-Leo 500+D - PO Not Given DAILY [facility] Chlorhexidine Gluconate 1 applic 07/05/17 22:00 07/06/17 22:00 Hibiclens For Decolonization - TP 1 applic HS [facility] Administration Diphenhydramine HCl 25 mg 07/05/17 16:53 Benadryl - PO Q6H PRN FOR ITCHING Famotidine/Sodium Chloride 20 mg in 50 mls @ 144 mls/hr 07/05/17 22:00 11:15 Pepcid 20 Mg Premixed Ivpb - IVPB 144 mls/hr BID [facility] Administration Aztreonam 1 gm in 10 mls @ 120 mls/hr 07/06/17 22:00 07/07/17 11:16 Azactam (Restricted To Id) - IVPUSH 120 mls/hr BID [facility] Administration Protocol Dextrose/Sodium Chloride 1,000 mls @ 50 mls/hr 07/06/17 13:00 07/07/17 11:09 D5-Ns - IV 50 mls/hr ASDIR [facility] Administration [place] Carbonate 150 mg 07/06/17 22:00 07/06/17 21:53 Eskalith - PO Not Given HS [facility] Mupirocin 1 applic 07/05/17 22:00 07/07/17 11:16 Bactroban Ointment (For Decolonization) - NS 07/10/17 21:59 1 applic BID [facility] Administration Polyethylene Glycol 17 gm 07/06/17 10:00 07/07/17 11:16 Miralax (For Daily Use) - PO Not Given DAILY [facility] Impression 1. MICAELA 2. hyperkalemia 3. hyponatremia 4. bipolar - on lithium 5. depression 6. change in mental status 7. nephrolithiasis 8. left kidney hydronephrosis 9. sepsis 10. acidosis 11. elevated INR 12. thrombocytopenia Plan - sodium is stable - cont fluids - can change fluids to 1/2ns with 75 meq sodium bicarb - repeat labs in am - monitor lytes - monitor renal function - cont abx - bp is improved - discussed with family - discussed with ICU team - micaela likely from pre-renal disease and obstruction - workup in progress - maintain Alex Bueno
[2017-07-07] MEDS ORDERED: SODIUM CHLORIDE 0.45% 1,000 ML with SODIUM BICARBONATE 8.4% - 75 MEQ IV SCH (15:45)
--- NOTE | 2017-07-07 18:12 | PN ---
Progress Note (short form) - Note Progress Note: Subjective: The patient was seen and examined in the ICU, lethargic, not able to answer questions. Remains on Ventimask Current Medications Generic Name Dose Route Start Last Admin Trade Name Freq PRN Reason Stop Dose Admin Acetaminophen 650 mg 07/05/17 16:53 Tylenol - PO Q4H PRN FEVER Albuterol/Ipratropium 1 amp 07/06/17 12:52 Duoneb - NEB Q4H PRN SHORTNESS OF BREATH Calcium Carbonate/Cholecalciferol 1 tab 07/06/17 10:00 07/07/17 11:16 Os-Leo 500+D - PO Not Given DAILY [facility] Chlorhexidine Gluconate 1 applic 07/05/17 22:00 07/06/17 22:00 Hibiclens For Decolonization - TP 1 applic HS [facility] Administration Diphenhydramine HCl 25 mg 07/05/17 16:53 Benadryl - PO Q6H PRN FOR ITCHING Famotidine/Sodium Chloride 20 mg in 50 mls @ 144 mls/hr 07/05/17 22:00 11:15 Pepcid 20 Mg Premixed Ivpb - IVPB 144 mls/hr BID [facility] Administration Aztreonam 1 gm in 10 mls @ 120 mls/hr 07/06/17 22:00 07/07/17 11:16 Azactam (Restricted To Id) - IVPUSH 120 mls/hr BID [facility] Administration Protocol Sodium Bicarbonate 75 meq/ 1,075 mls @ 50 mls/hr 07/07/17 16:30 Sodium Chloride IV ASDIR [facility] [place] Carbonate 150 mg 07/06/17 22:00 07/06/17 21:53 Eskalith - PO Not Given HS [facility] Mupirocin 1 applic 07/05/17 22:00 07/07/17 11:16 Bactroban Ointment (For Decolonization) - NS 07/10/17 21:59 1 applic BID [facility]SM[facility] Administration Polyethylene Glycol 17 gm 07/06/17 10:00 07/07/17 11:16 Miralax (For Daily Use) - PO Not Given DAILY [facility] Saliva Substitute 1 applic 07/07/17 17:30 [place] Solution - MM DAILY [facility] Objective: Vital Signs Period Temp Pulse Resp BP Sys/Marroquin Pulse Ox Last 24 Hr 97.2 F-98.4 F 57-84 10-20 87-142/46-70 100-100 Physical Exam: General: lethargic, mildly tachypneic Lungs: Scattered rhonchi bilaterally Heart: RRR, S1S2 Abd: Soft, non-tender. Normoactive bowel sounds CBCD WBC 21.8 K/mm3 (4.0-10.0) H 07/07/17 06:00 RBC 3.81 M/mm3 (3.60-5.2) D 07/07/17 06:00 Hgb 10.6 GM/dL (10.7-15.3) L D 07/07/17 06:00 Hct 32.4 % (32.4-45.2) D 07/07/17 06:00 MCV 85.0 fl (80-96) 07/07/17 06:00 MCHC 32.7 g/dl (32.0-36.0) 07/07/17 06:00 RDW 15.0 % (11.6-15.6) 07/07/17 06:00 Plt Count 48 K/MM3 (134-434) L 07/07/17 06:00 MPV 8.7 fl (7.5-11.1) 07/07/17 06:00 CMP Sodium 135 mmol/L (136-145) L 07/07/17 06:00 Potassium 3.7 mmol/L (3.5-5.1) 07/07/17 06:00 Chloride 108 mmol/L (98-107) H 07/07/17 06:00 Carbon Dioxide 12 mmol/L (21-32) L 07/07/17 06:00 Anion Gap 15 (8-16) 07/07/17 06:00 BUN 72 mg/dL (7-18) H 07/07/17 06:00 Creatinine 2.9 mg/dL (0.55-1.02) H 07/07/17 06:00 Creat Clearance w eGFR 15.39 (>60) 07/07/17 06:00 Random Glucose 136 mg/dL (74-106) H 07/07/17 06:00 Calcium 7.1 mg/dL (8.5-10.1) L 07/07/17 06:00 Total Bilirubin 3.3 mg/dL (0.2-1.0) H D 07/07/17 06:00 AST 200 U/L (15-37) H 07/07/17 06:00 ALT 190 U/L (12-78) H 07/07/17 06:00 Alkaline Phosphatase 498 U/L (45-117) H 07/07/17 06:00 Total Protein 4.8 g/dl (6.4-8.2) L 07/07/17 06:00 Albumin 1.6 g/dl (3.4-5.0) L 07/07/17 06:00 CARDIAC ENZYMES Creatine Kinase Cancelled 07/04/17 10:10 Troponin I Cancelled 07/04/17 10:10 Microbiology 07/04/17 11:17 Urine - Urine Clean Catch Urine Culture - Final Klebsiella Pneumoniae Enterococcus Faecalis 07/04/17 12:30 Blood - Peripheral Venous Blood Culture - Final Klebsiella Pneumoniae 07/04/17 12:30 Blood - Peripheral Venous Blood Culture - Final Klebsiella Pneumoniae 07/06/17 09:15 Blood - Peripheral Venous Blood Culture - Preliminary NO GROWTH OBTAINED AFTER 24 HOURS, INCUBATION TO CONTINUE FOR 4 DAYS. 07/06/17 09:30 Blood - Peripheral Venous Blood Culture - Preliminary NO GROWTH OBTAINED AFTER 24 HOURS, INCUBATION TO CONTINUE FOR 4 DAYS. Assessment: This is an 87 year old female with PMHx of diverticulitis, hypertension, macular degeneration (legally blind), depression, anxiety, who presented for ECT and was found to have confusion, labile BP, tachycardia Plan: 1) Metabolic encephalopathy 2/2 severe sepsis 2/2 Klebsiella pneumoniae bacteremia/UTI - ECHO reviewed - Continue Aztreonam - Vancomycin given this AM - F/u final culture and sensitivity for blood cultures - Repeat blood cultures today - Monitor WBC, trended up - Afebrile - Appreciate ID consult 2) UTI/Obstructive uropathy - CTAP with obstructing calculus at the left ureteropelvic junction with moderate left hydronephrosis - Left ureteral stent placement on 07/05 - Appreciate urology consult 3) MICAELA - Cr stable - Continue to monitor - Continue yan catheter 4) Hyponatremia - Continues to improve - Continue saline - Appreciate nephrology consult 5) Depression - Holding [place] as the patient has MICAELA 6) F/E/N: - NPO - Monitor electrolytes 7) Prophylaxis: - Hold chemical DVT prophylaxis as the patient has thrombocytopenia - TEDs bilaterally 8) Dispo: - Requires continued inpatient care CODE STATUS: DNR/DNI Visit type - Emergency Visit Emergency Visit: Yes ED Registration Date: 07/04/17 Care time: The patient presented to the Emergency Department on the above date and was hospitalized for further evaluation of their emergent condition. - New Patient This patient is new to me today: No - Critical Care Critical Care patient: No
[2017-07-07] MEDS: SODIUM CHLORIDE 0.45% 1,000 ML with SODIUM BICARBONATE 8.4% - 75 MEQ IV SCH (18:29)
[2017-07-07] MEDS: LYTES/YERBA SANTA 240 ML BOTTLE MM SCH (20:06)
[2017-07-07] MEDS: CHLORHEXIDINE GLUCONATE 4% CLEANSER FOR DECOLONIZATION TP SCH (22:06)
[2017-07-07] MEDS: LITHIUM CARBONATE 150 MG CAPSULE PO SCH (22:07)
[2017-07-08 06:14] LABS: HBSAG SCREEN Negative (Negative); HEP B CORE AB, TOT Negative (Negative)
[2017-07-08 06:24] LABS: HEMATOCRIT 32.6 % (32.4-45.2); HEMOGLOBIN 10.7 GM/dL (10.7-15.3); MCH 27.6 pg (25.7-33.7); MCHC 32.9 g/dl (32.0-36.0); MEAN CELL VOLUME 83.9 fl (80-96); PLATELET COUNT 52 K/MM3 (134-434); RBC 3.89 M/mm3 (3.60-5.2); RDW 15.9 % (11.6-15.6)
[2017-07-08 06:48] LABS: CHLORIDE 111 mmol/L (98-107); POTASSIUM 3.8 mmol/L (3.5-5.1); SODIUM 137 mmol/L (136-145)
[2017-07-08 06:55] LABS: ALBUMIN 1.6 g/dl (3.4-5.0); ALK PHOS 599 U/L (45-117); ANION GAP 14 (8-16); BILIRUBIN,TOTAL 2.3 mg/dL (0.2-1.0); BLOOD UREA NITROGEN 73 mg/dL (7-18); CALCIUM 7.5 mg/dL (8.5-10.1); CO2 12 mmol/L (21-32); CREATININE 2.6 mg/dL (0.55-1.02); GLUCOSE,RANDOM 117 mg/dL (74-106); MAGNESIUM 2.5 mg/dL (1.8-2.4); PHOSPHOROUS 5.1 mg/dL (2.5-4.9); SGOT/AST 96 U/L (15-37); SGPT/ALT 158 U/L (12-78); TOT PROT 4.9 g/dl (6.4-8.2)
--- NOTE | 2017-07-08 08:51 | PN ---
Progress Note (short form) - Note Progress Note: Patient seen and examined in the ICU. Remains lethargic and not able to answer questions. Mildly tachypneic on ventimask 40%. Remains off pressors. OBJECTIVE: Intake & Output 07/05/17 07/06/17 07/07/17 07/08/17 23:59 23:59 23:59 23:59 Intake Total 3250 3100 1600 350 Output Total 570 850 750 300 Balance 2680 2250 850 50 Weight 148 lb 155 lb 10.342 oz 153 lb 5 oz Last Vital Signs Temp Pulse Resp BP Pulse Ox 97.4 F L 64 18 143/61 99 07/08/17 06:00 07/08/17 06:00 07/08/17 06:00 07/08/17 06:00 07/07/17 21:00 Active Medications Acetaminophen (Tylenol -) 650 mg PO Q4H PRN PRN Reason: FEVER Albuterol/Ipratropium (Duoneb -) 1 amp NEB Q4H PRN PRN Reason: SHORTNESS OF BREATH Calcium Carbonate/Cholecalciferol (Os-Leo 500+D -) 1 tab PO DAILY [facility] Last Admin: 07/07/17 11:16 Dose: Not Given Chlorhexidine Gluconate (Hibiclens For Decolonization -) 1 applic TP [facility] Last Admin: 07/07/17 22:06 Dose: 1 applic Diphenhydramine HCl (Benadryl -) 25 mg PO Q6H PRN PRN Reason: FOR ITCHING Famotidine/Sodium Chloride (Pepcid 20 Mg Premixed Ivpb -) 20 mg in 50 mls @ 144 mls/hr IVPB BID [facility] Last Admin: 07/07/17 22:06 Dose: 144 mls/hr Aztreonam (Azactam (Restricted To Id) -) 1 gm in 10 mls @ 120 mls/hr IVPUSH BID [facility] PRN Reason: Protocol Last Admin: 07/07/17 22:06 Dose: 120 mls/hr Sodium Bicarbonate 75 meq/ (Sodium Chloride) 1,075 mls @ 50 mls/hr IV ASDIR [facility] Last Admin: 07/07/17 18:29 Dose: 50 mls/hr [place] Carbonate (Eskalith -) 150 mg PO [facility] Last Admin: 07/07/17 22:07 Dose: Not Given Mupirocin (Bactroban Ointment (For Decolonization) -) 1 applic NS BID [facility] Stop: 07/10/17 21:59 Last Admin: 07/07/17 22:07 Dose: 1 applic Polyethylene Glycol (Miralax (For Daily Use) -) 17 gm PO DAILY [facility] Last Admin: 07/07/17 11:16 Dose: Not Given Saliva Substitute ([place] Solution -) 1 applic MM DAILY [facility] Last Admin: 07/07/17 20:06 Dose: 1 applic Gen: lethargic, mildly tachypneic Heart: RRR Lung: upper airway wheezing, scattered rhonchi Abd: soft, nontender Ext: no edema Laboratory Results - last 24 hr 07/07/17 07/07/17 07/07/17 06:00 06:00 06:00 WBC RBC Hgb Hct MCV MCH MCHC RDW Plt Count MPV Neutrophils % Neutrophils % (Manual) 85.0 H Band Neutrophils % 3.0 Lymphocytes % Lymphocytes % (Manual) 3.0 L Monocytes % (Manual) 7 Eosinophils % (Manual) 1.0 D Basophils % (Manual) 0.0 Myelocytes % (Man) 1 D Metamyelocytes 0 D Hypochromia 0 Platelet Estimate Decreased Polychromasia 0 Poikilocytosis 2+ Anisocytosis 1+ Microcytosis 0 Macrocytosis 0 Fibrinogen Sodium Potassium Chloride Carbon Dioxide Anion Gap BUN Creatinine Creat Clearance w eGFR Random Glucose Calcium Phosphorus Magnesium Total Bilirubin AST ALT Alkaline Phosphatase Total Protein Albumin Hepatitis A IgM Ab Negative Hepatitis A Ab Total Negative Hep Bs Antigen Negative Negative Hep Bs Antibody Non reactive Hep B Core Total Ab Negative Hep B Core IgM Ab Negative Hepatitis C Antibody <0.1 07/08/17 07/08/17 07/08/17 05:40 05:40 05:40 WBC 25.0 H RBC 3.89 Hgb 10.7 Hct 32.6 MCV 83.9 MCH 27.6 MCHC 32.9 RDW 15.9 H Plt Count 52 L MPV 9.0 Neutrophils % No Result Required. Neutrophils % (Manual) Band Neutrophils % Lymphocytes % No Result Required. Lymphocytes % (Manual) Monocytes % (Manual) Eosinophils % (Manual) Basophils % (Manual) Myelocytes % (Man) Metamyelocytes Hypochromia Platelet Estimate Polychromasia Poikilocytosis Anisocytosis Microcytosis Macrocytosis Fibrinogen > 700.0 H Sodium 137 Potassium 3.8 Chloride 111 H Carbon Dioxide 12 L Anion Gap 14 BUN 73 H Creatinine 2.6 H Creat Clearance w eGFR 17.45 Random Glucose 117 H Calcium 7.5 L Phosphorus 5.1 H Magnesium 2.5 H Total Bilirubin 2.3 H D AST 96 H ALT 158 H Alkaline Phosphatase 599 H Total Protein 4.9 L Albumin 1.6 L Hepatitis A IgM Ab Hepatitis A Ab Total Hep Bs Antigen Hep Bs Antibody Hep B Core Total Ab Hep B Core IgM Ab Hepatitis C Antibody ASSESSMENT AND PLAN: UTI/Obstructive Uropathy Acute Kidney Injury Gram Negative Bacteremia Severe Sepsis r/o DIC s/p Cystoscopy/Left Ureteral Stent Placement Thrombocytopenia Anemia Hyponatremia Bipolar Disorder - continue antibiotics per ID - Noted IVF change yesterday - monitor urine output, creatinine - inhaled bronchodilators - taper FiO2 to keep SpO2 >90% - monitor lytes - Normal transfusion thresholds - NPO - Aspiration precautions - mechanical DVT prophylaxis - Family discussions for GOC Dr Rooney Critical care time spent in reviewing chart, evaluating patient and formulating plan 36 min
--- NOTE | 2017-07-08 10:09 | PN ---
Progress Note (short form) - Note Progress Note: awake, does not follow commands Vital Signs Period Temp Pulse Resp BP Sys/Marroquin Pulse Ox Last 24 Hr 97.2 F-98.4 F 57-84 10-20 96-147/43-73 99-100 lungs decreased bs at bases cor-rrr abd soft, midepigastric and RUQ discomfort on palpation ext no edema yan CBC, BMP 07/08/17 05:40 07/08/17 05:40 Microbiology 07/06/17 09:15 Blood - Peripheral Venous Blood Culture - Preliminary NO GROWTH OBTAINED AFTER 48 HOURS, INCUBATION TO CONTINUE FOR 3 DAYS. 07/06/17 09:30 Blood - Peripheral Venous Blood Culture - Preliminary NO GROWTH OBTAINED AFTER 48 HOURS, INCUBATION TO CONTINUE FOR 3 DAYS. 07/04/17 11:17 Urine - Urine Clean Catch Urine Culture - Final Klebsiella Pneumoniae Enterococcus Faecalis 07/04/17 12:30 Blood - Peripheral Venous Blood Culture - Final Klebsiella Pneumoniae 07/04/17 12:30 Blood - Peripheral Venous Blood Culture - Final Klebsiella Pneumoniae Current Medications Acetaminophen (Tylenol -) 650 mg PO Q4H PRN PRN Reason: FEVER Albuterol/Ipratropium (Duoneb -) 1 amp NEB Q4H PRN PRN Reason: SHORTNESS OF BREATH Calcium Carbonate/Cholecalciferol (Os-Leo 500+D -) 1 tab PO DAILY [facility] Last Admin: 07/07/17 11:16 Dose: Not Given Chlorhexidine Gluconate (Hibiclens For Decolonization -) 1 applic TP HS [facility] Last Admin: 07/07/17 22:06 Dose: 1 applic Diphenhydramine HCl (Benadryl -) 25 mg PO Q6H PRN PRN Reason: FOR ITCHING Famotidine/Sodium Chloride (Pepcid 20 Mg Premixed Ivpb -) 20 mg in 50 mls @ 144 mls/hr IVPB BID [facility] Last Admin: 07/07/17 22:06 Dose: 144 mls/hr Aztreonam (Azactam (Restricted To Id) -) 1 gm in 10 mls @ 120 mls/hr IVPUSH BID [facility] PRN Reason: Protocol Last Admin: 07/07/17 22:06 Dose: 120 mls/hr Sodium Bicarbonate 75 meq/ (Sodium Chloride) 1,075 mls @ 50 mls/hr IV ASDIR [facility] Last Admin: 07/07/17 18:29 Dose: 50 mls/hr [place] Carbonate (Eskalith -) 150 mg PO HS [facility] Last Admin: 07/07/17 22:07 Dose: Not Given Mupirocin (Bactroban Ointment (For Decolonization) -) 1 applic NS BID [facility] Stop: 07/10/17 21:59 Last Admin: 07/07/17 22:07 Dose: 1 applic Polyethylene Glycol (Miralax (For Daily Use) -) 17 gm PO DAILY [facility] Last Admin: 07/07/17 11:16 Dose: Not Given Saliva Substitute (M[place] Solution -) 1 applic MM DAILY [facility] Last Admin: 07/07/17 20:06 Dose: 1 applic a/p gram negative sepsis- kelbsiella secondary to stone- s/p stent placement 07/05 rash to cefepime, now on azactam given one dose vancomycin yesterday check level redose less then 15 continue azactam abnormal LFTS-sono noted, ?secondary to hypotension pen allergy leukocytosis- will reculture
[2017-07-08] MEDS: MUPIROCIN 2% TOPICAL OINTMENT FOR DECOLONIZATION NS SCH ×2 (10:41→22:00)
[2017-07-08] MEDS: AZTREONAM 1 GRAM SYRINGE 1 GM/10 ML DISP.SYRIN IVPUSH SCH ×2 (10:41→22:00)
[2017-07-08] MEDS: LYTES/YERBA SANTA 240 ML BOTTLE MM SCH (10:42)
[2017-07-08] MEDS: POLYETHYLENE GLYCOL 3350 119 GM BTL PO SCH (10:42)
[2017-07-08] MEDS: CALCIUM 500MG/VIT-D 200 UNITS COMBO TABLET (FP) PO SCH (10:44)
[2017-07-08] MEDS: FAMOTIDINE 20 MG/50 ML IVPB 20 MG/50 ML MG IVPB SCH ×2 (10:53→22:00)
[2017-07-08] MEDS ORDERED: morphine CARPU-JECT 2 MG/1 ML DISP.SYRIN IVPUSH PRN (11:19)
[2017-07-08] MEDS ORDERED: morphine CARPU-JECT 2 MG/1 ML DISP.SYRIN IVPB PRN ×2 (11:20→11:21)
--- NOTE | 2017-07-08 12:31 | PN ---
Progress Note (short form) - Note Progress Note: Subjective: The patient was seen and examined in the ICU, lethargic, states pain to hip Current Medications Generic Name Dose Route Start Last Admin Trade Name Freq PRN Reason Stop Dose Admin Acetaminophen 650 mg 07/05/17 16:53 Tylenol - PO Q4H PRN FEVER Albuterol/Ipratropium 1 amp 07/06/17 12:52 Duoneb - NEB Q4H PRN SHORTNESS OF BREATH Calcium Carbonate/Cholecalciferol 1 tab 07/06/17 10:00 07/07/17 11:16 Os-Leo 500+D - PO Not Given DAILY O[facility] Chlorhexidine Gluconate 1 applic 07/05/17 22:00 07/06/17 22:00 Hibiclens For Decolonization - TP 1 applic HS [facility] Administration Diphenhydramine HCl 25 mg 07/05/17 16:53 Benadryl - PO Q6H PRN FOR ITCHING Famotidine/Sodium Chloride 20 mg in 50 mls @ 144 mls/hr 07/05/17 22:00 11:15 Pepcid 20 Mg Premixed Ivpb - IVPB 144 mls/hr BID OSMAN Administration Aztreonam 1 gm in 10 mls @ 120 mls/hr 07/06/17 22:00 07/07/17 11:16 Azactam (Restricted To Id) - IVPUSH 120 mls/hr BID OSMAN Administration Protocol Sodium Bicarbonate 75 meq/ 1,075 mls @ 50 mls/hr 07/07/17 16:30 Sodium Chloride IV ASDIR OSMAN [place] Carbonate 150 mg 07/06/17 22:00 07/06/17 21:53 Eskalith - PO Not Given HS OSMAN Mupirocin 1 applic 07/05/17 22:00 07/07/17 11:16 Bactroban Ointment (For Decolonization) - NS 07/10/17 21:59 1 applic BID OSMAN Administration Polyethylene Glycol 17 gm 07/06/17 10:00 07/07/17 11:16 Miralax (For Daily Use) - PO Not Given DAILY OSM[facility] Saliva Substitute 1 applic 07/07/17 17:30 [place] Solution - MM DAILY OSM[facility] Objective: Vital Signs Period Temp Pulse Resp BP Sys/Marroquin Pulse Ox Last 24 Hr 97.2 F-98.4 F 57-84 10-20 87-142/46-70 100-100 Physical Exam: General: lethargic, mildly tachypneic Lungs: Scattered rhonchi bilaterally Heart: RRR, S1S2 Abd: Soft, non-tender. Normoactive bowel sounds CBCD WBC 21.8 K/mm3 (4.0-10.0) H 07/07/17 06:00 RBC 3.81 M/mm3 (3.60-5.2) D 07/07/17 06:00 Hgb 10.6 GM/dL (10.7-15.3) L D 07/07/17 06:00 Hct 32.4 % (32.4-45.2) D 07/07/17 06:00 MCV 85.0 fl (80-96) 07/07/17 06:00 MCHC 32.7 g/dl (32.0-36.0) 07/07/17 06:00 RDW 15.0 % (11.6-15.6) 07/07/17 06:00 Plt Count 48 K/MM3 (134-434) L 07/07/17 06:00 MPV 8.7 fl (7.5-11.1) 07/07/17 06:00 CMP Sodium 135 mmol/L (136-145) L 07/07/17 06:00 Potassium 3.7 mmol/L (3.5-5.1) 07/07/17 06:00 Chloride 108 mmol/L (98-107) H 07/07/17 06:00 Carbon Dioxide 12 mmol/L (21-32) L 07/07/17 06:00 Anion Gap 15 (8-16) 07/07/17 06:00 BUN 72 mg/dL (7-18) H 07/07/17 06:00 Creatinine 2.9 mg/dL (0.55-1.02) H 07/07/17 06:00 Creat Clearance w eGFR 15.39 (>60) 07/07/17 06:00 Random Glucose 136 mg/dL (74-106) H 07/07/17 06:00 Calcium 7.1 mg/dL (8.5-10.1) L 07/07/17 06:00 Total Bilirubin 3.3 mg/dL (0.2-1.0) H D 07/07/17 06:00 AST 200 U/L (15-37) H 07/07/17 06:00 ALT 190 U/L (12-78) H 07/07/17 06:00 Alkaline Phosphatase 498 U/L (45-117) H 07/07/17 06:00 Total Protein 4.8 g/dl (6.4-8.2) L 07/07/17 06:00 Albumin 1.6 g/dl (3.4-5.0) L 07/07/17 06:00 CARDIAC ENZYMES Creatine Kinase Cancelled 07/04/17 10:10 Troponin I Cancelled 07/04/17 10:10 Microbiology 07/04/17 11:17 Urine - Urine Clean Catch Urine Culture - Final Klebsiella Pneumoniae Enterococcus Faecalis 07/04/17 12:30 Blood - Peripheral Venous Blood Culture - Final Klebsiella Pneumoniae 07/04/17 12:30 Blood - Peripheral Venous Blood Culture - Final Klebsiella Pneumoniae 07/06/17 09:15 Blood - Peripheral Venous Blood Culture - Preliminary NO GROWTH OBTAINED AFTER 24 HOURS, INCUBATION TO CONTINUE FOR 4 DAYS. 07/06/17 09:30 Blood - Peripheral Venous Blood Culture - Preliminary NO GROWTH OBTAINED AFTER 24 HOURS, INCUBATION TO CONTINUE FOR 4 DAYS. Assessment: This is an 87 year old female with PMHx of diverticulitis, hypertension, macular degeneration (legally blind), depression, anxiety, who presented for ECT and was found to have confusion, labile BP, tachycardia Plan: 1) Metabolic encephalopathy 2/2 severe sepsis 2/2 Klebsiella pneumoniae bacteremia/UTI - ECHO reviewed - Continue Aztreonam - Vancomycin given yesterday, f/u level today - Repeat blood cultures on 07/06 with NGTD - Repeat cultures today, patient with worsening leukocytosis - Afebrile - Appreciate ID consult 2) UTI/Obstructive uropathy - CTAP with obstructing calculus at the left ureteropelvic junction with moderate left hydronephrosis - Left ureteral stent placement on 07/05 - Appreciate urology consult 3) MICAELA - Cr improving 2.6 today - Continue to monitor - Continue yan catheter 4) 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 - Patient pointing to left him and saying "pain" - Will start Morphine, discussed with son Johnny 5) Transaminitis - Improving today - Liver ultrasound reviewed - Appreciate GI consult 6) Hyponatremia - Resolved - Appreciate nephrology consult 7) Depression - Holding [place] as the patient has MICAELA and is unable to swallow 8) F/E/N: - NPO - Monitor electrolytes 9) Prophylaxis: - Hold chemical DVT prophylaxis as the patient has thrombocytopenia - TEDs bilaterally 10) Dispo: - Requires continued inpatient care CODE STATUS: DNR/DNI Visit type - Emergency Visit Emergency Visit: Yes ED Registration Date: 07/04/17 Care time: The patient presented to the Emergency Department on the above date and was hospitalized for further evaluation of their emergent condition. - New Patient This patient is new to me today: Yes Date on this admission: 07/09/17 - Critical Care Critical Care patient: Yes Total Critical Care Time (in minutes): 35 Critical Care Statement: The care of this patient involved high complexity decision making to prevent further life threatening deterioration of the patient 's condition and/or to evaluate & treat vital organ system(s) failure or risk of failure.
[2017-07-08 12:32] LABS: ANISOCYTOSIS 0; MACROCYTOSIS 0; OVALOCYTE 1+; PLATELET ESTIMATE DECREASED
[2017-07-08] MEDS ORDERED: morphine CARPU-JECT 8 MG/1 ML DISP.SYRIN ONE (12:45)
--- NOTE | 2017-07-08 13:15 | PN ---
Progress Note (short form) - Note Progress Note: covering dr chavez micaela hyponatremia Current Medications Acetaminophen (Tylenol -) 650 mg PO Q4H PRN PRN Reason: FEVER Albuterol/Ipratropium (Duoneb -) 1 amp NEB Q4H PRN PRN Reason: SHORTNESS OF BREATH Calcium Carbonate/Cholecalciferol (Os-Leo 500+D -) 1 tab PO DAILY [facility] Last Admin: 07/08/17 10:44 Dose: Not Given Chlorhexidine Gluconate (Hibiclens For Decolonization -) 1 applic TP [facility] Last Admin: 07/07/17 22:06 Dose: 1 applic Diphenhydramine HCl (Benadryl -) 25 mg PO Q6H PRN PRN Reason: FOR ITCHING Famotidine/Sodium Chloride (Pepcid 20 Mg Premixed Ivpb -) 20 mg in 50 mls @ 144 mls/hr IVPB BID [facility] Last Admin: 07/08/17 10:53 Dose: 144 mls/hr Aztreonam (Azactam (Restricted To Id) -) 1 gm in 10 mls @ 120 mls/hr IVPUSH BID [facility] PRN Reason: Protocol Last Admin: 07/08/17 10:41 Dose: 120 mls/hr Sodium Bicarbonate 75 meq/ (Sodium Chloride) 1,075 mls @ 50 mls/hr IV ASDIR [facility] Last Admin: 07/07/17 18:29 Dose: 50 mls/hr [place] Carbonate (Eskalith -) 150 mg PO [facility] Last Admin: 07/07/17 22:07 Dose: Not Given Morphine Sulfate (Morphine Injection -) 1 mg IVPB Q4H PRN PRN Reason: PAIN LEVEL 6-10 Morphine Sulfate (Morphine Injection -) 0.5 mg IVPB Q4H PRN PRN Reason: PAIN LEVEL 1-5 Mupirocin (Bactroban Ointment (For Decolonization) -) 1 applic NS BID [facility] Stop: 07/10/17 21:59 Last Admin: 07/08/17 10:41 Dose: 1 applic Polyethylene Glycol (Miralax (For Daily Use) -) 17 gm PO DAILY [facility] Last Admin: 07/08/17 10:42 Dose: Not Given Saliva Substitute (M[place]kote Solution -) 1 applic MM DAILY [facility] Last Admin: 07/08/17 10:42 Dose: 1 applic Last Vital Signs Temp Pulse Resp BP Pulse Ox 97.4 F L 64 18 143/61 99 07/08/17 06:00 07/08/17 06:00 07/08/17 06:00 07/08/17 06:00 07/07/17 21:00 lungs clear Heart reg Abd soft nontender, no guarding ext edema CBC, BMP 07/08/17 05:40 07/08/17 05:40 IMP- hyponatremia resolved MICAELA continues to improve s creat 2.6 from 2.9 yesterday Sepsis- urine source marked leukocytosis Plan- follow up labs same rx for now fluid mgmt
--- NOTE | 2017-07-08 13:30 | PN ---
Progress Note (short form) - Note Progress Note: last culture were negative however her WBC is rising and is now at 25K Afebrile, VSS agree with reculturing. CT scan if no improvement
[2017-07-08] MEDS: SODIUM CHLORIDE 0.45% 1,000 ML with SODIUM BICARBONATE 8.4% - 75 MEQ IV SCH (16:23)
[2017-07-08] MEDS: HYDROmorphone HCL CARPU-JECT 2 MG/1 ML DISP.SYRIN IVPB PRN (18:48)
[2017-07-08] MEDS: LITHIUM CARBONATE 150 MG CAPSULE PO SCH (22:00)
[2017-07-08] MEDS: CHLORHEXIDINE GLUCONATE 4% CLEANSER FOR DECOLONIZATION TP SCH (22:00)
[2017-07-09 06:06] LABS: HEMATOCRIT 30.3 % (32.4-45.2); HEMOGLOBIN 9.9 GM/dL (10.7-15.3); MCH 27.5 pg (25.7-33.7); MCHC 32.7 g/dl (32.0-36.0); MEAN CELL VOLUME 83.9 fl (80-96); MEAN PLT VOLUME 8.6 fl (7.5-11.1); PLATELET COUNT 68 K/MM3 (134-434); RDW 16.2 % (11.6-15.6); WHITE BLOOD COUNT 24.8 K/mm3 (4.0-10.0)
[2017-07-09 06:53] LABS: ALBUMIN 1.5 g/dl (3.4-5.0); ANION GAP 15 (8-16); BLOOD UREA NITROGEN 79 mg/dL (7-18); CALCIUM 7.2 mg/dL (8.5-10.1); CHLORIDE 115 mmol/L (98-107); CO2 12 mmol/L (21-32); GLUCOSE,RANDOM 122 mg/dL (74-106); POTASSIUM 3.7 mmol/L (3.5-5.1); SODIUM 142 mmol/L (136-145)
[2017-07-09 06:57] LABS: ALK PHOS 580 U/L (45-117); BILIRUBIN,TOTAL 2.4 mg/dL (0.2-1.0); CREATININE 2.4 mg/dL (0.55-1.02); SGOT/AST 53 U/L (15-37); SGPT/ALT 109 U/L (12-78); TOT PROT 4.8 g/dl (6.4-8.2)
--- NOTE | 2017-07-09 09:03 | PN ---
Progress Note (short form) - Note Progress Note: Patient seen and examined in the ICU. Remains lethargic and not able to answer questions. Mildly tachypneic on ventimask 40%. Remains off pressors. Noted WBC stable today and she was recultured yesterday. OBJECTIVE: Intake & Output 07/06/17 07/07/17 07/08/17 07/09/17 23:59 23:59 23:59 23:59 Intake Total 3100 1600 450 Output Total 850 750 800 Balance 2250 850 -350 Weight 148 lb 155 lb 10.342 oz 153 lb 5 oz Last Vital Signs Temp Pulse Resp BP Pulse Ox 98.6 F 69 14 149/56 100 07/09/17 02:00 07/09/17 04:00 07/09/17 04:00 07/09/17 04:00 07/08/17 21:00 Active Medications Acetaminophen (Tylenol -) 650 mg PO Q4H PRN PRN Reason: FEVER Albuterol/Ipratropium (Duoneb -) 1 amp NEB Q4H PRN PRN Reason: SHORTNESS OF BREATH Calcium Carbonate/Cholecalciferol (Os-Leo 500+D -) 1 tab PO DAILY [facility] Last Admin: 07/08/17 10:44 Dose: Not Given Chlorhexidine Gluconate (Hibiclens For Decolonization -) 1 applic TP HS [facility] Last Admin: 07/08/17 22:00 Dose: 1 applic Diphenhydramine HCl (Benadryl -) 25 mg PO Q6H PRN PRN Reason: FOR ITCHING Hydromorphone HCl (Dilaudid Injection -) 0.5 mg IVPB Q4H PRN PRN Reason: PAIN- PT IS NON-VERBAL Last Admin: 07/08/17 18:48 Dose: 0.5 mg Famotidine/Sodium Chloride (Pepcid 20 Mg Premixed Ivpb -) 20 mg in 50 mls @ 144 mls/hr IVPB BID [facility] Last Admin: 07/08/17 22:00 Dose: 144 mls/hr Aztreonam (Azactam (Restricted To Id) -) 1 gm in 10 mls @ 120 mls/hr IVPUSH BID [facility] PRN Reason: Protocol Last Admin: 07/08/17 22:00 Dose: 120 mls/hr Sodium Bicarbonate 75 meq/ (Sodium Chloride) 1,075 mls @ 50 mls/hr IV ASDIR [facility] Last Admin: 07/08/17 16:23 Dose: 50 mls/hr [place] Carbonate (Eskalith -) 150 mg PO HS [facility] Last Admin: 07/08/17 22:00 Dose: Not Given Mupirocin (Bactroban Ointment (For Decolonization) -) 1 applic NS BID [facility] Stop: 07/10/17 21:59 Last Admin: 07/08/17 22:00 Dose: 1 applic Polyethylene Glycol (Miralax (For Daily Use) -) 17 gm PO DAILY [facility] Last Admin: 07/08/17 10:42 Dose: Not Given Saliva Substitute (M[place]kote Solution -) 1 applic MM DAILY [facility] Last Admin: 07/08/17 10:42 Dose: 1 applic Gen: lethargic, mildly tachypneic Heart: RRR Lung: upper airway wheezing, scattered rhonchi Abd: soft, nontender Ext: no edema Laboratory Results - last 24 hr 07/05/17 07/07/17 07/08/17 08:42 06:00 05:40 WBC RBC Hgb Hct MCV MCH MCHC RDW Plt Count MPV Neutrophils % (Manual) 84.3 H Band Neutrophils % 5.9 Lymphocytes % (Manual) 1.0 L D Monocytes % (Manual) 8 Eosinophils % (Manual) 0.0 D Basophils % (Manual) 0.0 Myelocytes % (Man) 0 D Metamyelocytes 0 Hypochromia 0 Platelet Estimate Decreased Polychromasia 0 Poikilocytosis 1+ Anisocytosis 0 Microcytosis 1+ Macrocytosis 0 Ovalocytes 1+ Sodium Potassium Chloride Carbon Dioxide Anion Gap BUN Creatinine Creat Clearance w eGFR Random Glucose Calcium Total Bilirubin AST ALT Alkaline Phosphatase Total Protein Albumin Random Vancomycin PORFIRIO Screen Positive H PORFIRIO Homogeneous Pattern 1:80 PORFIRIO Nucleolar Pattern TNP PORFIRIO Midbody Pattern TNP PORFIRIO Speckled Pattern TNP PORFIRIO Centromere Pattern TNP Blood Type O POSITIVE Crossmatch See Detail 07/08/17 07/09/17 07/09/17 10:50 05:20 05:20 WBC 24.8 H RBC 3.60 Hgb 9.9 L Hct 30.3 L MCV 83.9 MCH 27.5 MCHC 32.7 RDW 16.2 H Plt Count 68 L D MPV 8.6 Neutrophils % (Manual) Band Neutrophils % Lymphocytes % (Manual) Monocytes % (Manual) Eosinophils % (Manual) Basophils % (Manual) Myelocytes % (Man) Metamyelocytes Hypochromia Platelet Estimate Polychromasia Poikilocytosis Anisocytosis Microcytosis Macrocytosis Ovalocytes Sodium Potassium Chloride Carbon Dioxide Anion Gap BUN Creatinine Creat Clearance w eGFR Random Glucose Calcium Total Bilirubin AST ALT Alkaline Phosphatase Total Protein Albumin Random Vancomycin 12.137 10.006 PORFIRIO Screen PORFIRIO Homogeneous Pattern PORFIRIO Nucleolar Pattern PORFIRIO Midbody Pattern PORFIRIO Speckled Pattern PORFIRIO Centromere Pattern Blood Type Crossmatch 07/09/17 05:20 WBC RBC Hgb Hct MCV MCH MCHC RDW Plt Count MPV Neutrophils % (Manual) Band Neutrophils % Lymphocytes % (Manual) Monocytes % (Manual) Eosinophils % (Manual) Basophils % (Manual) Myelocytes % (Man) Metamyelocytes Hypochromia Platelet Estimate Polychromasia Poikilocytosis Anisocytosis Microcytosis Macrocytosis Ovalocytes Sodium 142 Potassium 3.7 Chloride 115 H Carbon Dioxide 12 L Anion Gap 15 BUN 79 H Creatinine 2.4 H Creat Clearance w eGFR 19.14 Random Glucose 122 H Calcium 7.2 L Total Bilirubin 2.4 H AST 53 H ALT 109 H Alkaline Phosphatase 580 H Total Protein 4.8 L Albumin 1.5 L Random Vancomycin PORFIRIO Screen PORFIRIO Homogeneous Pattern PORFIRIO Nucleolar Pattern PORFIRIO Midbody Pattern PORFIRIO Speckled Pattern PORFIRIO Centromere Pattern Blood Type Crossmatch ASSESSMENT AND PLAN: UTI/Obstructive Uropathy Acute Kidney Injury Gram Negative Bacteremia Severe Sepsis r/o DIC s/p Cystoscopy/Left Ureteral Stent Placement Thrombocytopenia Anemia Hyponatremia Bipolar Disorder - For repeat imaging today - continue antibiotics per ID - IVF - monitor urine output, creatinine - inhaled bronchodilators - taper FiO2 to keep SpO2 >90% - monitor lytes - Normal transfusion thresholds - NPO - Aspiration precautions - mechanical DVT prophylaxis - Family discussions for C Dr Rooney Critical care time spent in reviewing chart, evaluating patient and formulating plan 36 min
[2017-07-09] MEDS: MUPIROCIN 2% TOPICAL OINTMENT FOR DECOLONIZATION NS SCH ×2 (10:53→21:45)
[2017-07-09] MEDS: POLYETHYLENE GLYCOL 3350 119 GM BTL PO SCH (10:53)
[2017-07-09] MEDS: LYTES/YERBA SANTA 240 ML BOTTLE MM SCH (10:53)
[2017-07-09] MEDS: AZTREONAM 1 GRAM SYRINGE 1 GM/10 ML DISP.SYRIN IVPUSH SCH ×2 (10:53→21:45)
[2017-07-09] MEDS: CALCIUM 500MG/VIT-D 200 UNITS COMBO TABLET (FP) PO SCH (10:54)
[2017-07-09] MEDS: FAMOTIDINE 20 MG/50 ML IVPB 20 MG/50 ML MG IVPB SCH ×2 (10:54→21:45)
[2017-07-09] MEDS: SODIUM CHLORIDE 0.45% 1,000 ML with SODIUM BICARBONATE 8.4% - 75 MEQ IV SCH (11:03)
[2017-07-09] MEDS: HYDROmorphone HCL CARPU-JECT 2 MG/1 ML DISP.SYRIN IVPB PRN (11:13)
--- NOTE | 2017-07-09 13:38 | PN ---
Progress Note (short form) - Note Progress Note: Tmax 100, VSS WBC still at 25K abdomen is soft urine is clear recommend CT to R/O abscess
--- NOTE | 2017-07-09 14:47 | PN ---
Progress Note (short form) - Note Progress Note: covering dr chavez micaela hyponatremia urosepsis unresponsive Active Medications Acetaminophen (Tylenol -) 650 mg PO Q4H PRN PRN Reason: FEVER Albuterol/Ipratropium (Duoneb -) 1 amp NEB Q4H PRN PRN Reason: SHORTNESS OF BREATH Calcium Carbonate/Cholecalciferol (Os-Leo 500+D -) 1 tab PO DAILY [facility] Last Admin: 07/09/17 10:54 Dose: Not Given Chlorhexidine Gluconate (Hibiclens For Decolonization -) 1 applic TP HS [facility] Last Admin: 07/08/17 22:00 Dose: 1 applic Diphenhydramine HCl (Benadryl -) 25 mg PO Q6H PRN PRN Reason: FOR ITCHING Hydromorphone HCl (Dilaudid Injection -) 0.5 mg IVPB Q4H PRN PRN Reason: PAIN- PT IS NON-VERBAL Last Admin: 07/09/17 11:13 Dose: 0.5 mg Famotidine/Sodium Chloride (Pepcid 20 Mg Premixed Ivpb -) 20 mg in 50 mls @ 144 mls/hr IVPB BID [facility] Last Admin: 07/09/17 10:54 Dose: 144 mls/hr Aztreonam (Azactam (Restricted To Id) -) 1 gm in 10 mls @ 120 mls/hr IVPUSH BID [facility] PRN Reason: Protocol Last Admin: 07/09/17 10:53 Dose: 120 mls/hr Sodium Bicarbonate 75 meq/ (Sodium Chloride) 1,075 mls @ 50 mls/hr IV ASDIR [facility] Last Admin: 07/09/17 11:03 Dose: 50 mls/hr [place] Carbonate (Eskalith -) 150 mg PO [facility] Last Admin: 07/08/17 22:00 Dose: Not Given Mupirocin (Bactroban Ointment (For Decolonization) -) 1 applic NS BID [facility] Stop: 07/10/17 21:59 Last Admin: 07/09/17 10:53 Dose: 1 applic Polyethylene Glycol (Miralax (For Daily Use) -) 17 gm PO DAILY [facility] Last Admin: 07/09/17 10:53 Dose: Not Given Saliva Substitute ([place] Solution -) 1 applic MM DAILY [facility] Last Admin: 07/09/17 10:53 Dose: 1 applic Last Vital Signs Temp Pulse Resp BP Pulse Ox 100.0 F H 64 13 105/37 95 07/09/17 10:00 07/09/17 12:00 07/09/17 12:00 07/09/17 12:00 07/09/17 09:00 lungs rhonchi, but clear Heart soft sounds Abd soft nontender, no guarding ext +edema CBC, BMP 07/09/17 05:20 07/09/17 05:20 CBC, BMP 07/08/17 05:40 07/08/17 05:40 IMP- hyponatremia resolved MICAELA continues to improve s creat 2.4 from 2.6 from 2.9 Sepsis- urine source marked leukocytosis r/o abscess per Plan- follow up labs same rx for now fluid mgmt
--- NOTE | 2017-07-09 17:24 | PN ---
Progress Note (short form) - Note Progress Note: awake, does not follow commands lethargic today Vital Signs Period Temp Pulse Resp BP Sys/Marroquin Pulse Ox Last 24 Hr 98.6 F-100.0 F 60-75 11-25 105-158/37-69 95-100 cor-rrr lungs decreased bs at bses abd firm, nt ext no edema CBC, BMP 07/09/17 05:20 07/09/17 05:20 Microbiology 07/08/17 10:50 Blood - Peripheral Venous Blood Culture - Preliminary NO GROWTH OBTAINED AFTER 24 HOURS, INCUBATION TO CONTINUE FOR 4 DAYS. 07/08/17 10:50 Blood - Peripheral Venous Blood Culture - Preliminary NO GROWTH OBTAINED AFTER 24 HOURS, INCUBATION TO CONTINUE FOR 4 DAYS. 07/06/17 09:15 Blood - Peripheral Venous Blood Culture - Preliminary NO GROWTH OBTAINED AFTER 72 HOURS, INCUBATION TO CONTINUE FOR 2 DAYS. 07/06/17 09:30 Blood - Peripheral Venous Blood Culture - Preliminary NO GROWTH OBTAINED AFTER 72 HOURS, INCUBATION TO CONTINUE FOR 2 DAYS. 07/04/17 11:17 Urine - Urine Clean Catch Urine Culture - Final Klebsiella Pneumoniae Enterococcus Faecalis 07/04/17 12:30 Blood - Peripheral Venous Blood Culture - Final Klebsiella Pneumoniae 07/04/17 12:30 Blood - Peripheral Venous Blood Culture - Final Klebsiella Pneumoniae a/p gram negative sepsis- klebsiella secondary to stone- s/p stent placement 07/05 rash to cefepime, now on azactam given one dose vancomycin yesterday check level redose less then 15 continue azactam abnormal LFTS-sono noted, ?secondary to hypotension-improving pen allergy leukocytosis- repeat cultures negative, agree with plans for repeat ct scan
--- NOTE | 2017-07-09 19:46 | PN ---
Progress Note (short form) - Note Progress Note: Subjective: The patient was seen and examined in the ICU, not opening eyes to stimuli. Moaning Current Medications Generic Name Dose Route Start Last Admin Trade Name Freq PRN Reason Stop Dose Admin Acetaminophen 650 mg 07/05/17 16:53 Tylenol - PO Q4H PRN FEVER Albuterol/Ipratropium 1 amp 07/06/17 12:52 Duoneb - NEB Q4H PRN SHORTNESS OF BREATH Calcium Carbonate/Cholecalciferol 1 tab 07/06/17 10:00 07/09/17 10:54 Os-Leo 500+D - PO Not Given DAILY [facility] Chlorhexidine Gluconate 1 applic 07/05/17 22:00 07/08/17 22:00 Hibiclens For Decolonization - TP 1 applic HS [facility] Administration Diphenhydramine HCl 25 mg 07/05/17 16:53 Benadryl - PO Q6H PRN FOR ITCHING Hydromorphone HCl 0.5 mg 07/08/17 18:08 07/09/17 11:13 Dilaudid Injection - IVPB 0.5 mg Q4H PRN Administration PAIN- PT IS NON-VERBAL Famotidine/Sodium Chloride 20 mg in 50 mls @ 144 mls/hr 07/05/17 22:00 10:54 Pepcid 20 Mg Premixed Ivpb - IVPB 144 mls/hr BID [facility] Administration Aztreonam 1 gm in 10 mls @ 120 mls/hr 07/06/17 22:00 07/09/17 10:53 Azactam (Restricted To Id) - IVPUSH 120 mls/hr BID [facility] Administration Protocol Sodium Bicarbonate 75 meq/ 1,075 mls @ 50 mls/hr 07/07/17 16:30 07/09/17 11: 03 Sodium Chloride IV 50 mls/hr ASDIR O[facility] Administration [place] Carbonate 150 mg 07/06/17 22:00 07/08/17 22:00 Eskalith - PO Not Given HS [facility] Mupirocin 1 applic 07/05/17 22:00 07/09/17 10:53 Bactroban Ointment (For Decolonization) - NS 07/10/17 21:59 1 applic BID [facility] Administration Polyethylene Glycol 17 gm 07/06/17 10:00 07/09/17 10:53 Miralax (For Daily Use) - PO Not Given DAILY [facility] Saliva Substitute 1 applic 07/07/17 17:30 07/09/17 10:53 M[place] Solution - MM 1 applic DAILY [facility] Administration Objective: Vital Signs Period Temp Pulse Resp BP Sys/Marroquin Pulse Ox Last 24 Hr 98.6 F-100.0 F 60-80 11-25 105-171/37-69 95-100 Physical Exam: General: lethargic, moaning, not opening eyes to any stimuli Lungs: Scattered rhonchi bilaterally Heart: RRR, S1S2 Abd: Soft, non-tender. Normoactive bowel sounds Ext: 1+ pedal edema CBCD WBC 24.8 K/mm3 (4.0-10.0) H 07/09/17 05:20 RBC 3.60 M/mm3 (3.60-5.2) 07/09/17 05:20 Hgb 9.9 GM/dL (10.7-15.3) L 07/09/17 05:20 Hct 30.3 % (32.4-45.2) L 07/09/17 05:20 MCV 83.9 fl (80-96) 07/09/17 05:20 MCHC 32.7 g/dl (32.0-36.0) 07/09/17 05:20 RDW 16.2 % (11.6-15.6) H 07/09/17 05:20 Plt Count 68 K/MM3 (134-434) L D 07/09/17 05:20 MPV 8.6 fl (7.5-11.1) 07/09/17 05:20 CMP Sodium 142 mmol/L (136-145) 07/09/17 05:20 Potassium 3.7 mmol/L (3.5-5.1) 07/09/17 05:20 Chloride 115 mmol/L (98-107) H 07/09/17 05:20 Carbon Dioxide 12 mmol/L (21-32) L 07/09/17 05:20 Anion Gap 15 (8-16) 07/09/17 05:20 BUN 79 mg/dL (7-18) H 07/09/17 05:20 Creatinine 2.4 mg/dL (0.55-1.02) H 07/09/17 05:20 Creat Clearance w eGFR 19.14 (>60) 07/09/17 05:20 Random Glucose 122 mg/dL (74-106) H 07/09/17 05:20 Calcium 7.2 mg/dL (8.5-10.1) L 07/09/17 05:20 Total Bilirubin 2.4 mg/dL (0.2-1.0) H 07/09/17 05:20 AST 53 U/L (15-37) H 07/09/17 05:20 ALT 109 U/L (12-78) H 07/09/17 05:20 Alkaline Phosphatase 580 U/L (45-117) H 07/09/17 05:20 Total Protein 4.8 g/dl (6.4-8.2) L 07/09/17 05:20 Albumin 1.5 g/dl (3.4-5.0) L 07/09/17 05:20 CARDIAC ENZYMES Creatine Kinase Cancelled 07/04/17 10:10 Troponin I Cancelled 07/04/17 10:10 Microbiology 07/08/17 10:50 Blood - Peripheral Venous Blood Culture - Preliminary NO GROWTH OBTAINED AFTER 24 HOURS, INCUBATION TO CONTINUE FOR 4 DAYS. 07/08/17 10:50 Blood - Peripheral Venous Blood Culture - Preliminary NO GROWTH OBTAINED AFTER 24 HOURS, INCUBATION TO CONTINUE FOR 4 DAYS. 07/06/17 09:15 Blood - Peripheral Venous Blood Culture - Preliminary NO GROWTH OBTAINED AFTER 72 HOURS, INCUBATION TO CONTINUE FOR 2 DAYS. 07/06/17 09:30 Blood - Peripheral Venous Blood Culture - Preliminary NO GROWTH OBTAINED AFTER 72 HOURS, INCUBATION TO CONTINUE FOR 2 DAYS. 07/04/17 11:17 Urine - Urine Clean Catch Urine Culture - Final Klebsiella Pneumoniae Enterococcus Faecalis 07/04/17 12:30 Blood - Peripheral Venous Blood Culture - Final Klebsiella Pneumoniae 07/04/17 12:30 Blood - Peripheral Venous Blood Culture - Final Klebsiella Pneumoniae Assessment: This is an 87 year old female with PMHx of diverticulitis, hypertension, macular degeneration (legally blind), depression, anxiety, who presented for ECT and was found to have confusion, labile BP, tachycardia Plan: 1) Metabolic encephalopathy 2/2 severe sepsis 2/2 Klebsiella pneumoniae bacteremia/UTI - ECHO reviewed - Continue Aztreonam - Vancomycin given 07/07 - Repeat blood cultures on 07/06 with NGTD - WBC remain elevated, f/u CTAP - Tmax 100 - Appreciate ID consult 2) UTI/Obstructive uropathy - CTAP with obstructing calculus at the left ureteropelvic junction with moderate left hydronephrosis - Left ureteral stent placement on 07/05 - Appreciate urology consult 3) MICAELA - Cr improving 2.4 today - Continue to monitor - Continue yan catheter 4) 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 - Continue Dilaudid prn 5) Transaminitis - Stable - Liver ultrasound reviewed - Appreciate GI consult 6) Hyponatremia - Resolved - Appreciate nephrology consult 7) Depression - Missed ECT/discontinuation of [place] may be contributing to her mental status changes - Holding [place] as the patient has MICAELA and is unable to swallow 8) F/E/N: - NPO - Monitor electrolytes 9) Prophylaxis: - Hold chemical DVT prophylaxis as the patient has thrombocytopenia - TEDs bilaterally 10) Dispo: - Requires continued inpatient care CODE STATUS: DNR/DNI Visit type - Emergency Visit Emergency Visit: Yes ED Registration Date: 07/04/17 Care time: The patient presented to the Emergency Department on the above date and was hospitalized for further evaluation of their emergent condition. - New Patient This patient is new to me today: No - Critical Care Critical Care patient: No
[2017-07-09] MEDS ORDERED: PT OWN MED DRAWER 7, Y5N ONE (21:29)
[2017-07-09] MEDS: LITHIUM CARBONATE 150 MG CAPSULE PO SCH (21:46)
[2017-07-09] MEDS: CHLORHEXIDINE GLUCONATE 4% CLEANSER FOR DECOLONIZATION TP SCH (21:46)
[2017-07-10 00:06] LABS: HEPARIN INDUCED PLATELET AB. 0.19 OD (0.000-0.400)
[2017-07-10 06:23] LABS: HEMATOCRIT 29.9 % (32.4-45.2); HEMOGLOBIN 9.5 GM/dL (10.7-15.3); MCH 26.9 pg (25.7-33.7); MCHC 31.9 g/dl (32.0-36.0); MEAN CELL VOLUME 84.3 fl (80-96); MEAN PLT VOLUME 8.1 fl (7.5-11.1); PLATELET COUNT 65 K/MM3 (134-434); RBC 3.55 M/mm3 (3.60-5.2)
[2017-07-10 06:59] LABS: CHLORIDE 119 mmol/L (98-107); POTASSIUM 3.6 mmol/L (3.5-5.1); SODIUM 147 mmol/L (136-145)
[2017-07-10 07:08] LABS: ALBUMIN 1.5 g/dl (3.4-5.0); ALK PHOS 536 U/L (45-117); ANION GAP 15 (8-16); BILIRUBIN,TOTAL 2.2 mg/dL (0.2-1.0); BLOOD UREA NITROGEN 80 mg/dL (7-18); CALCIUM 7.2 mg/dL (8.5-10.1); CO2 13 mmol/L (21-32); CREATININE 2.1 mg/dL (0.55-1.02); GLUCOSE,RANDOM 160 mg/dL (74-106); SGOT/AST 40 U/L (15-37); SGPT/ALT 84 U/L (12-78)
--- NOTE | 2017-07-10 07:18 | PN ---
Progress Note, Physician Chief Complaint: ID Aztreonam continue for gram negative sana bacteremia Issue of elevated WBC noted and a CT of the abd ordered which is pending report. I suspect she has incomplete decompression of the ureter She is not on steroids. NO fevers noted - Current Medication List Current Medications: Active Medications Acetaminophen (Tylenol -) 650 mg PO Q4H PRN PRN Reason: FEVER Albuterol/Ipratropium (Duoneb -) 1 amp NEB Q4H PRN PRN Reason: SHORTNESS OF BREATH Calcium Carbonate/Cholecalciferol (Os-Leo 500+D -) 1 tab PO DAILY [facility] Last Admin: 07/09/17 10:54 Dose: Not Given Chlorhexidine Gluconate (Hibiclens For Decolonization -) 1 applic TP HS [facility] Last Admin: 07/09/17 21:46 Dose: 1 applic Diphenhydramine HCl (Benadryl -) 25 mg PO Q6H PRN PRN Reason: FOR ITCHING Hydromorphone HCl (Dilaudid Injection -) 0.5 mg IVPB Q4H PRN PRN Reason: PAIN- PT IS NON-VERBAL Last Admin: 07/09/17 11:13 Dose: 0.5 mg Famotidine/Sodium Chloride (Pepcid 20 Mg Premixed Ivpb -) 20 mg in 50 mls @ 144 mls/hr IVPB BID [facility] Last Admin: 07/09/17 21:45 Dose: 144 mls/hr Aztreonam (Azactam (Restricted To Id) -) 1 gm in 10 mls @ 120 mls/hr IVPUSH BID [facility] PRN Reason: Protocol Last Admin: 07/09/17 21:45 Dose: 120 mls/hr Sodium Bicarbonate 75 meq/ (Sodium Chloride) 1,075 mls @ 50 mls/hr IV ASDIR [facility] Last Admin: 07/09/17 11:03 Dose: 50 mls/hr [place] Carbonate (Eskalith -) 150 mg PO [facility] Last Admin: 07/09/17 21:46 Dose: Not Given Mupirocin (Bactroban Ointment (For Decolonization) -) 1 applic NS BID [facility] Stop: 07/10/17 21:59 Last Admin: 07/09/17 21:45 Dose: 1 applic Polyethylene Glycol (Miralax (For Daily Use) -) 17 gm PO DAILY [facility] Last Admin: 07/09/17 10:53 Dose: Not Given Saliva Substitute (Mouthkote Solution -) 1 applic MM DAILY [facility] Last Admin: 07/09/17 10:53 Dose: 1 applic - Objective Vital Signs: Vital Signs Temperature 98.6 F 07/10/17 06:00 Pulse Rate 68 07/10/17 06:00 Respiratory Rate 20 07/10/17 06:00 Blood Pressure 156/43 07/10/17 06:00 O2 Sat by Pulse Oximetry (%) 95 07/09/17 15:27 HENT: Yes: WNL, Atraumatic Neck: Yes: WNL, Supple Cardiovascular: Yes: Regular Rate and Rhythm, S1, S2. No: Murmur Respiratory: Yes: WNL, Regular, CTA Bilaterally Gastrointestinal: Yes: WNL, Normal Bowel Sounds, Soft. No: Tenderness, Tenderness, Rebound Extremities: No: Cold, Cool, Cyanosis Edema: No Labs: CBC, BMP 07/10/17 05:10 INR, PTT INR 1.35 (0.82-1.09) H 07/06/17 15:00 Fibrinogen > 700.0 mg/dL (238-498) H 07/08/17 05:40 Problem List - Problems (1) Gram-negative bacteremia Code(s): R78.81 - BACTEREMIA (2) MICAELA (acute kidney injury) Code(s): N17.9 - ACUTE KIDNEY FAILURE, UNSPECIFIED (3) Kidney stone on left side Code(s): N20.0 - CALCULUS OF KIDNEY (4) Sepsis Code(s): A41.9 - SEPSIS, UNSPECIFIED ORGANISM Assessment/Plan Microbiology 07/04/17 12:30 Blood - Peripheral Venous Blood Culture - Final Klebsiella Pneumoniae 07/04/17 12:30 Blood - Peripheral Venous Blood Culture - Final Klebsiella Pneumoniae 07/04/17 11:17 Urine - Urine Clean Catch Urine Culture - Final Klebsiella Pneumoniae Enterococcus Faecalis 07/08/17 10:50 Blood - Peripheral Venous Blood Culture - Preliminary NO GROWTH OBTAINED AFTER 24 HOURS, INCUBATION TO CONTINUE FOR 4 DAYS. 07/08/17 10:50 Blood - Peripheral Venous Blood Culture - Preliminary NO GROWTH OBTAINED AFTER 24 HOURS, INCUBATION TO CONTINUE FOR 4 DAYS. Laboratory Tests 07/09/17 07/10/17 05:20 05:10 WBC 23.0 H Hgb 9.5 L Hct 29.9 L Plt Count 65 L Creat Clearance w eGFR 19.14 AST 53 H ALT 109 H Alkaline Phosphatase 580 H Assessment S/P placement of ureteral stent 07/05 Urosepsis Persistant leukocytosis Klebsiella bacteremia Fatty liver worsened by sepsis and hypotension MICAELA Low platelets secondary sepsis Plan Continue current antibiotic Will discuss with urology once CT report final Critical care lisa lozano 35 minutes Madhav CARROLL
--- NOTE | 2017-07-10 09:45 | PN ---
Physical Exam: SUBJECTIVE: Patient seen and examined, remains lethargic OBJECTIVE: wbc trending down, CT abd/pelvis pending read thrombocytopenia Vital Signs Period Temp Pulse Resp BP Sys/Marroquin Pulse Ox Last 24 Hr 97.3 F-100.0 F 64-80 13-31 105-171/37-69 95 GENERAL: lethargic, labored breathing, eyes closed Normal with no signs of trauma. NECK: Trachea midline, full range of motion, supple. LUNGS: scattered rhonchi anteriorly HEART: Regular rate and rhythm ABDOMEN: Soft, nontender, nondistended, normoactive bowel sounds, no guarding, no rebound, no hepatosplenomegaly, no masses. EXTREMITIES: +1 bilateral LE edema NEUROLOGICAL: lethargic, unable to assess Laboratory Results - last 24 hr 07/05/17 07/06/17 07/10/17 08:55 15:00 05:10 WBC 23.0 H RBC 3.55 L Hgb 9.5 L Hct 29.9 L MCV 84.3 MCH 26.9 MCHC 31.9 L RDW 16.0 H Plt Count 65 L MPV 8.1 Sodium Potassium Chloride Carbon Dioxide Anion Gap BUN Creatinine Creat Clearance w eGFR Random Glucose Calcium Total Bilirubin AST ALT Alkaline Phosphatase Total Protein Albumin Hep-Induced Plt Ab Rapid 0.190 Blood Type O POSITIVE Antibody Screen Negative Crossmatch See Detail 07/10/17 05:10 WBC RBC Hgb Hct MCV MCH MCHC RDW Plt Count MPV Sodium 147 H Potassium 3.6 Chloride 119 H Carbon Dioxide 13 L Anion Gap 15 BUN 80 H Creatinine 2.1 H Creat Clearance w eGFR 22.33 Random Glucose 160 H Calcium 7.2 L Total Bilirubin 2.2 H AST 40 H ALT 84 H Alkaline Phosphatase 536 H Total Protein 5.0 L Albumin 1.5 L Hep-Induced Plt Ab Rapid Blood Type Antibody Screen Crossmatch Active Medications Generic Name Dose Route Start Last Admin Trade Name Freq PRN Reason Stop Dose Admin Acetaminophen 650 mg 07/05/17 16:53 Tylenol - PO Q4H PRN FEVER Albuterol/Ipratropium 1 amp 07/06/17 12:52 Duoneb - NEB Q4H PRN SHORTNESS OF BREATH Calcium Carbonate/Cholecalciferol 1 tab 07/06/17 10:00 07/09/17 10:54 Os-Leo 500+D - PO Not Given DAILY [facility] Chlorhexidine Gluconate 1 applic 07/05/17 22:00 07/09/17 21:46 Hibiclens For Decolonization - TP 1 applic HS [facility] Administration Diphenhydramine HCl 25 mg 07/05/17 16:53 Benadryl - PO Q6H PRN FOR ITCHING Hydromorphone HCl 0.5 mg 07/08/17 18:08 07/09/17 11:13 Dilaudid Injection - IVPB 0.5 mg Q4H PRN Administration PAIN- PT IS NON-VERBAL Famotidine/Sodium Chloride 20 mg in 50 mls @ 144 mls/hr 07/05/17 22:00 21:45 Pepcid 20 Mg Premixed Ivpb - IVPB 144 mls/hr BID [facility] Administration Aztreonam 1 gm in 10 mls @ 120 mls/hr 07/06/17 22:00 07/09/17 21:45 Azactam (Restricted To Id) - IVPUSH 120 mls/hr BID [facility] Administration Protocol Sodium Bicarbonate 75 meq/ 1,075 mls @ 50 mls/hr 07/07/17 16:30 07/09/17 11: 03 Sodium Chloride IV 50 mls/hr ASDIR [facility] Administration [place] Carbonate 150 mg 07/06/17 22:00 07/09/17 21:46 Eskalith - PO Not Given HS [facility] Mupirocin 1 applic 07/05/17 22:00 07/09/17 21:45 Bactroban Ointment (For Decolonization) - NS 07/10/17 21:59 1 applic BID [facility] Administration Polyethylene Glycol 17 gm 07/06/17 10:00 07/09/17 10:53 Miralax (For Daily Use) - PO Not Given DAILY [facility] Saliva Substitute 1 applic 07/07/17 17:30 07/09/17 10:53 Mouthkote Solution - MM 1 applic DAILY [facility] Administration ASSESSMENT/PLAN: Patient is an 87 yo female with a significant past medical history of diverticulitis, hypertension, bipolar disorder, recent L hip replacement, presented to the ED on 07/04/2017 with AMS and found to have hyponatremia, MICAELA, L obstructive ureteropelvic junction calculus, now s/p L stent placement on 07/05. Neurology AMS Acute metabolic encephalopathy likely secondary to severe sepsis with obstructive ureteropelvic calculus Continues to be lethargic, somnolent Monitor mental status in the setting of sepsis WBC improving slightly ID: Severe sepsis Secondary to UTI s/p stents for ureteropelvic calculus, creatinine improving Monitor intake and output Monitor kidney function and urine output Continue hydration IV hydration with D5W and bicarb Cardiology: Hypertension, chronic Monitor in the setting of sepsis F.E.N. Fluids: D5W w755 meq of bicarb at 42 cc/hr Electrolytes: monitor Nutrition: on IVF, may need NGT for added nutrition, RD consult Prophylaxis: DVT: SCDs GI: pepcid
[2017-07-10] MEDS: SODIUM CHLORIDE 0.45% 1,000 ML with SODIUM BICARBONATE 8.4% - 75 MEQ IV SCH (09:58)
[2017-07-10] MEDS ORDERED: PT OWN MED DRAWER 7, Y5N ONE (10:02)
[2017-07-10] MEDS: MUPIROCIN 2% TOPICAL OINTMENT FOR DECOLONIZATION NS SCH (10:04)
[2017-07-10] MEDS: AZTREONAM 1 GRAM SYRINGE 1 GM/10 ML DISP.SYRIN IVPUSH SCH ×2 (10:04→22:58)
[2017-07-10] MEDS: FAMOTIDINE 20 MG/50 ML IVPB 20 MG/50 ML MG IVPB SCH (10:08)
[2017-07-10] MEDS: HYDROmorphone HCL CARPU-JECT 2 MG/1 ML DISP.SYRIN IVPB PRN ×3 (10:11→19:16)
[2017-07-10] MEDS: LYTES/YERBA SANTA 240 ML BOTTLE MM SCH (11:00)
--- NOTE | 2017-07-10 11:53 | PN ---
Teaching Attending Note Name of Resident: Ramy Phan ATTENDING PHYSICIAN STATEMENT I saw and evaluated the patient. I reviewed the resident's note and discussed the case with the resident. I agree with the resident's findings and plan as documented. SUBJECTIVE: Patient seen and examined in the ICU. Remains lethargic and not able to answer questions. Moans when she is awakened. Mildly tachypneic on NC O2. Remains off pressors. CXR: Mild increase in vascular congestion. OBJECTIVE: Intake & Output 07/07/17 07/08/17 07/09/17 07/10/17 23:59 23:59 23:59 23:59 Intake Total 1600 450 850 Output Total 959 348 1390 400 Balance 850 -350 -550 -400 Weight 155 lb 10.342 oz 153 lb 5 oz 151 lb 0.266 oz 150 lb 2.157 oz Last Vital Signs Temp Pulse Resp BP Pulse Ox 99.2 F 79 19 176/80 94 L 07/10/17 10:00 07/10/17 10:00 07/10/17 10:00 07/10/17 10:00 07/10/17 09:00 Active Medications Acetaminophen (Tylenol -) 650 mg PO Q4H PRN PRN Reason: FEVER Albuterol/Ipratropium (Duoneb -) 1 amp NEB Q4H PRN PRN Reason: SHORTNESS OF BREATH Calcium Carbonate/Cholecalciferol (Os-Leo 500+D -) 1 tab PO DAILY [facility] Last Admin: 07/09/17 10:54 Dose: Not Given Chlorhexidine Gluconate (Hibiclens For Decolonization -) 1 applic TP HS [facility] Last Admin: 07/09/17 21:46 Dose: 1 applic Diphenhydramine HCl (Benadryl -) 25 mg PO Q6H PRN PRN Reason: FOR ITCHING Hydromorphone HCl (Dilaudid Injection -) 0.5 mg IVPB Q4H PRN PRN Reason: PAIN- PT IS NON-VERBAL Last Admin: 07/10/17 10:11 Dose: 0.5 mg Famotidine/Sodium Chloride (Pepcid 20 Mg Premixed Ivpb -) 20 mg in 50 mls @ 144 mls/hr IVPB BID [facility] Last Admin: 07/10/17 10:08 Dose: 144 mls/hr Aztreonam (Azactam (Restricted To Id) -) 1 gm in 10 mls @ 120 mls/hr IVPUSH BID [facility] PRN Reason: Protocol Last Admin: 07/10/17 10:04 Dose: 120 mls/hr Sodium Bicarbonate 75 meq/ (Sodium Chloride) 1,075 mls @ 50 mls/hr IV ASDIR [facility] Last Admin: 07/10/17 09:58 Dose: 50 mls/hr [place] Carbonate (Eskalith -) 150 mg PO HS [facility] Last Admin: 07/09/17 21:46 Dose: Not Given Mupirocin (Bactroban Ointment (For Decolonization) -) 1 applic NS BID [facility] Stop: 07/10/17 21:59 Last Admin: 07/10/17 10:04 Dose: 1 applic Polyethylene Glycol (Miralax (For Daily Use) -) 17 gm PO DAILY [facility] Last Admin: 07/09/17 10:53 Dose: Not Given Saliva Substitute (Mouthkote Solution -) 1 applic MM DAILY [facility] Last Admin: 07/09/17 10:53 Dose: 1 applic Gen: lethargic, mildly tachypneic Heart: RRR Lung: less upper airway wheezing, scattered rhonchi Abd: soft, nontender Ext: no edema Laboratory Results - last 24 hr 07/05/17 07/06/17 07/10/17 08:55 15:00 05:10 WBC 23.0 H RBC 3.55 L Hgb 9.5 L Hct 29.9 L MCV 84.3 MCH 26.9 MCHC 31.9 L RDW 16.0 H Plt Count 65 L MPV 8.1 Sodium Potassium Chloride Carbon Dioxide Anion Gap BUN Creatinine Creat Clearance w eGFR Random Glucose Calcium Total Bilirubin AST ALT Alkaline Phosphatase Total Protein Albumin Hep-Induced Plt Ab Rapid 0.190 Blood Type O POSITIVE Antibody Screen Negative Crossmatch See Detail 07/10/17 05:10 WBC RBC Hgb Hct MCV MCH MCHC RDW Plt Count MPV Sodium 147 H Potassium 3.6 Chloride 119 H Carbon Dioxide 13 L Anion Gap 15 BUN 80 H Creatinine 2.1 H Creat Clearance w eGFR 22.33 Random Glucose 160 H Calcium 7.2 L Total Bilirubin 2.2 H AST 40 H ALT 84 H Alkaline Phosphatase 536 H Total Protein 5.0 L Albumin 1.5 L Hep-Induced Plt Ab Rapid Blood Type Antibody Screen Crossmatch ASSESSMENT AND PLAN: UTI/Obstructive Uropathy Acute Kidney Injury Gram Negative Bacteremia Severe Sepsis r/o DIC s/p Cystoscopy/Left Ureteral Stent Placement Thrombocytopenia Anemia Hyponatremia Bipolar Disorder - Check official result of CT imaging - continue antibiotics per ID - Minimize IVF - monitor urine output, creatinine - inhaled bronchodilators - taper FiO2 to keep SpO2 >90% - monitor lytes - Normal transfusion thresholds - NPO - Aspiration precautions - mechanical DVT prophylaxis - Family discussions for GOC - Cardiac Telemetry monitoring Dr Rooney Critical care time spent in reviewing chart, evaluating patient and formulating plan 36 min
[2017-07-10] MEDS ORDERED: FUROSEMIDE 40 MG/4 ML INJECTABLE VIAL IVPUSH ONE ×2 (13:05→13:30)
--- NOTE | 2017-07-10 13:07 | PN ---
Physical Exam: SUBJECTIVE: Patient seen and examined in ICU Patient remains minimally responsive. On 3L NC Patient not currently on pressors. BP maintained. OBJECTIVE: Vital Signs Period Temp Pulse Resp BP Sys/Marroquin Pulse Ox Last 24 Hr 97.3 F-99.8 F 64-80 15-31 133-176/43-80 94-95 GENERAL: The patient is lethargic, moaning intermittently HEAD: Normal with no signs of trauma. EYES: Not opening eyes to command, although awake . ENT: NC placed NECK: supple. LUNGS: Breath sounds reduced lung bases with mild wheezing HEART: Regular rate and rhythm, S1, S2 without murmur, rub or gallop. ABDOMEN: Soft, nontender, nondistended, reduced bowel sounds, EXTREMITIES: 2+ pulses, warm, well-perfused, bilateral SCDs. NEUROLOGICAL: Lethargic, monosyllabic, able to move all limbs, gait not observed Laboratory Results - last 24 hr 07/05/17 07/06/17 07/10/17 08:55 15:00 05:10 WBC 23.0 H RBC 3.55 L Hgb 9.5 L Hct 29.9 L MCV 84.3 MCH 26.9 MCHC 31.9 L RDW 16.0 H Plt Count 65 L MPV 8.1 Sodium Potassium Chloride Carbon Dioxide Anion Gap BUN Creatinine Creat Clearance w eGFR Random Glucose Calcium Total Bilirubin AST ALT Alkaline Phosphatase Total Protein Albumin Hep-Induced Plt Ab Rapid 0.190 Blood Type O POSITIVE Antibody Screen Negative Crossmatch See Detail 07/10/17 05:10 WBC RBC Hgb Hct MCV MCH MCHC RDW Plt Count MPV Sodium 147 H Potassium 3.6 Chloride 119 H Carbon Dioxide 13 L Anion Gap 15 BUN 80 H Creatinine 2.1 H Creat Clearance w eGFR 22.33 Random Glucose 160 H Calcium 7.2 L Total Bilirubin 2.2 H AST 40 H ALT 84 H Alkaline Phosphatase 536 H Total Protein 5.0 L Albumin 1.5 L Hep-Induced Plt Ab Rapid Blood Type Antibody Screen Crossmatch Active Medications Generic Name Dose Route Start Last Admin Trade Name Freq PRN Reason Stop Dose Admin Acetaminophen 650 mg 07/05/17 16:53 Tylenol - PO Q4H PRN FEVER Albuterol/Ipratropium 1 amp 07/06/17 12:52 Duoneb - NEB Q4H PRN SHORTNESS OF BREATH Calcium Carbonate/Cholecalciferol 1 tab 07/06/17 10:00 07/09/17 10:54 Os-Leo 500+D - PO Not Given DAILY [facility] Chlorhexidine Gluconate 1 applic 07/05/17 22:00 07/09/17 21:46 Hibiclens For Decolonization - TP 1 applic HS [facility] Administration Diphenhydramine HCl 25 mg 07/05/17 16:53 Benadryl - PO Q6H PRN FOR ITCHING Furosemide 40 mg 07/10/17 13:05 Lasix Injection - IVPUSH 07/10/17 13:06 ONCE ONE Hydromorphone HCl 0.5 mg 07/08/17 18:08 07/10/17 10:11 Dilaudid Injection - IVPB 0.5 mg Q4H PRN Administration PAIN- PT IS NON-VERBAL Famotidine/Sodium Chloride 20 mg in 50 mls @ 144 mls/hr 07/05/17 22:00 10:08 Pepcid 20 Mg Premixed Ivpb - IVPB 144 mls/hr BID [facility] Administration Aztreonam 1 gm in 10 mls @ 120 mls/hr 07/06/17 22:00 07/10/17 10:04 Azactam (Restricted To Id) - IVPUSH 120 mls/hr BID [facility] Administration Protocol Sodium Bicarbonate 75 meq/ 1,075 mls @ 42 mls/hr 07/10/17 13:15 Dextrose IV .[id number] [facility] Potassium Chloride 10 meq in 100 mls @ 100 mls/hr 07/10/17 13:15 Potassium Chloride 10 Meq Premix Ivpb - IVPB 07/10/17 15:14 Q60M OSMAN [place] Carbonate 150 mg 07/06/17 22:00 07/09/17 21:46 Eskalith - PO Not Given HS [facility] Mupirocin 1 applic 07/05/17 22:00 07/10/17 10:04 Bactroban Ointment (For Decolonization) - NS 07/10/17 21:59 1 applic BID [facility] Administration Polyethylene Glycol 17 gm 07/06/17 10:00 07/09/17 10:53 Miralax (For Daily Use) - PO Not Given DAILY [facility] Saliva Substitute 1 applic 07/07/17 17:30 07/09/17 10:53 Mouthkote Solution - MM 1 applic DAILY [facility] Administration ASSESSMENT/PLAN: 87 yo female with h/o diverticulitis, HTN, bipolar disorder, recent L hip replacement, presented with AMS and found to have hyponatremia, MICAELA, L obstructive ureteropelvic junction calculus, now s/p L stent placement. Neuro: Acute metabolic encephalopathy 2/2 severe sepsis with obstructive ureteropelvic calculus- resolving sepsis -Assess mental status -Goals of care discussion with family performed, Patient's family does not want pressors. -Avoid sedatives Renal/ID: Severe sepsis 2/2 to UTI with obstructive ureteropelvic calculus s/p L stent placement Repeat CT abd/pelvis performed-- no abdominal abscess visualized Patient's IVF switched to D5W with 75 meq of bicarb Patient given 40 mg IV lasix and 20 meq of potassium for pleural effusions Aspiration precautions-elevate HOB Continue Vancomycin/Aztreonam per ID recommendations Monitor urine output, creatinine Avoid nephrotoxic medications Cardio: Hx of hypertension Current BP is stable Fluid responsive, not needing pressors. Will attempt to obtain a peripheral line and remove central line. Pulmonary: Acute Hypoxic respiratory failure likely 2/2 to severe sepsis Patient currently on 3L NC satting well. Occasionally needs NRB FEN: D5W +75 meq of bicarb at 42 cc/hr Monitor lytes and replete as needed-BMP Consider NG tube placement for feeds Prophylaxis: DVT- SCDs-Thrombocytopenia On pepcid gtt Dispo: Can monitor in telemetry Visit type - Emergency Visit Emergency Visit: Yes ED Registration Date: 07/04/17 Care time: The patient presented to the Emergency Department on the above date and was hospitalized for further evaluation of their emergent condition. - New Patient This patient is new to me today: Yes Date on this admission: 07/10/17 - Critical Care Critical Care patient: Yes Total Critical Care Time (in minutes): 35 Critical Care Statement: The care of this patient involved high complexity decision making to prevent further life threatening deterioration of the patient 's condition and/or to evaluate & treat vital organ system(s) failure or risk of failure.
--- NOTE | 2017-07-10 13:09 | PN ---
Progress Note, Physician History of Present Illness: Pt seen and examined at bedside at bedside. She remains lethargic. She remains in the ICU. - Current Medication List Current Medications: Active Medications Acetaminophen (Tylenol -) 650 mg PO Q4H PRN PRN Reason: FEVER Albuterol/Ipratropium (Duoneb -) 1 amp NEB Q4H PRN PRN Reason: SHORTNESS OF BREATH Calcium Carbonate/Cholecalciferol (Os-Leo 500+D -) 1 tab PO DAILY [facility] Last Admin: 07/09/17 10:54 Dose: Not Given Chlorhexidine Gluconate (Hibiclens For Decolonization -) 1 applic TP HS [facility] Last Admin: 07/09/17 21:46 Dose: 1 applic Diphenhydramine HCl (Benadryl -) 25 mg PO Q6H PRN PRN Reason: FOR ITCHING Hydromorphone HCl (Dilaudid Injection -) 0.5 mg IVPB Q4H PRN PRN Reason: PAIN- PT IS NON-VERBAL Last Admin: 07/10/17 10:11 Dose: 0.5 mg Famotidine/Sodium Chloride (Pepcid 20 Mg Premixed Ivpb -) 20 mg in 50 mls @ 144 mls/hr IVPB BID [facility] Last Admin: 07/10/17 10:08 Dose: 144 mls/hr Aztreonam (Azactam (Restricted To Id) -) 1 gm in 10 mls @ 120 mls/hr IVPUSH BID [facility] PRN Reason: Protocol Last Admin: 07/10/17 10:04 Dose: 120 mls/hr Sodium Bicarbonate 75 meq/ (Sodium Chloride) 1,075 mls @ 50 mls/hr IV ASDIR [facility] Last Admin: 07/10/17 09:58 Dose: 50 mls/hr [place] Carbonate (Eskalith -) 150 mg PO HS [facility] Last Admin: 07/09/17 21:46 Dose: Not Given Mupirocin (Bactroban Ointment (For Decolonization) -) 1 applic NS BID [facility] Stop: 07/10/17 21:59 Last Admin: 07/10/17 10:04 Dose: 1 applic Polyethylene Glycol (Miralax (For Daily Use) -) 17 gm PO DAILY [facility] Last Admin: 07/09/17 10:53 Dose: Not Given Saliva Substitute (Mouthkote Solution -) 1 applic MM DAILY [facility] Last Admin: 07/09/17 10:53 Dose: 1 applic - Objective Vital Signs: Vital Signs Temperature 99.2 F 07/10/17 10:00 Pulse Rate 79 07/10/17 10:00 Respiratory Rate 19 07/10/17 10:00 Blood Pressure 176/80 07/10/17 10:00 O2 Sat by Pulse Oximetry (%) 94 L 07/10/17 10:00 Constitutional: Yes: Calm Eyes: Yes: Conjunctiva Clear HENT: Yes: Atraumatic Cardiovascular: Yes: S1, S2 Respiratory: Yes: On Nasal O2, Rhonchi Gastrointestinal: Yes: Soft Genitourinary: Yes: Johnson Present Musculoskeletal: Yes: Muscle Weakness Edema: Yes Edema: LUE: 1+, RUE: 1+ Integumentary: No: Rash Neurological: Yes: Lethargy Labs: CBC, BMP 07/10/17 05:10 07/10/17 05:10 INR, PTT INR 1.35 (0.82-1.09) H 07/06/17 15:00 Fibrinogen > 700.0 mg/dL (238-498) H 07/08/17 05:40 - ....Imaging Chest X-ray: Report Reviewed Cat Scan: Report Reviewed Problem List - Problems (1) MICAELA (acute kidney injury) Code(s): N17.9 - ACUTE KIDNEY FAILURE, UNSPECIFIED (2) Dehydration Code(s): E86.0 - DEHYDRATION (3) Depression Code(s): F32.9 - MAJOR DEPRESSIVE DISORDER, SINGLE EPISODE, UNSPECIFIED (4) Electrolyte imbalance Code(s): E87.8 - OTH DISORDERS OF ELECTROLYTE AND FLUID BALANCE, NEC (5) Hypertension Code(s): I10 - ESSENTIAL (PRIMARY) HYPERTENSION (6) Hypoglycemia Code(s): E16.2 - HYPOGLYCEMIA, UNSPECIFIED (7) Hyponatremia Code(s): E87.1 - HYPO-OSMOLALITY AND HYPONATREMIA (8) Kidney stone on left side Code(s): N20.0 - CALCULUS OF KIDNEY (9) Leukocytosis Code(s): D72.829 - ELEVATED WHITE BLOOD CELL COUNT, UNSPECIFIED Qualifiers: Leukocytosis type: bandemia Qualified Code(s): D72.825 - Bandemia (10) Obstructive uropathy Code(s): N13.9 - OBSTRUCTIVE AND REFLUX UROPATHY, UNSPECIFIED Assessment/Plan Current Medications Generic Name Dose Route Start Last Admin Trade Name Freq PRN Reason Stop Dose Admin Acetaminophen 650 mg 07/05/17 16:53 Tylenol - PO Q4H PRN FEVER Albuterol/Ipratropium 1 amp 07/06/17 12:52 Duoneb - NEB Q4H PRN SHORTNESS OF BREATH Calcium Carbonate/Cholecalciferol 1 tab 07/06/17 10:00 07/09/17 10:54 Os-Leo 500+D - PO Not Given DAILY [facility] Chlorhexidine Gluconate 1 applic 07/05/17 22:00 07/09/17 21:46 Hibiclens For Decolonization - TP 1 applic HS [facility] Administration Diphenhydramine HCl 25 mg 07/05/17 16:53 Benadryl - PO Q6H PRN FOR ITCHING Furosemide 20 mg 07/10/17 13:05 Lasix Injection - IVPUSH 07/10/17 13:06 ONCE ONE Hydromorphone HCl 0.5 mg 07/08/17 18:08 07/10/17 10:11 Dilaudid Injection - IVPB 0.5 mg Q4H PRN Administration PAIN- PT IS NON-VERBAL Famotidine/Sodium Chloride 20 mg in 50 mls @ 144 mls/hr 07/05/17 22:00 10:08 Pepcid 20 Mg Premixed Ivpb - IVPB 144 mls/hr BID [facility] Administration Aztreonam 1 gm in 10 mls @ 120 mls/hr 07/06/17 22:00 07/10/17 10:04 Azactam (Restricted To Id) - IVPUSH 120 mls/hr BID [facility] Administration Protocol Sodium Bicarbonate 75 meq/ 1,075 mls @ 42 mls/hr 07/10/17 13:15 Dextrose IV .[id number] [facility] Potassium Chloride 10 meq in 100 mls @ 100 mls/hr 07/10/17 13:15 Potassium Chloride 10 Meq Premix Ivpb - IVPB 07/10/17 15:14 Q60M OSMAN [place] Carbonate 150 mg 07/06/17 22:00 07/09/17 21:46 Eskalith - PO Not Given HS [facility] Mupirocin 1 applic 07/05/17 22:00 07/10/17 10:04 Bactroban Ointment (For Decolonization) - NS 07/10/17 21:59 1 applic BID [facility] Administration Polyethylene Glycol 17 gm 07/06/17 10:00 07/09/17 10:53 Miralax (For Daily Use) - PO Not Given DAILY [facility] Saliva Substitute 1 applic 07/07/17 17:30 07/09/17 10:53 Mouthkote Solution - MM 1 applic DAILY [facility] Administration Impression 1. MICAELA 2. hyperkalemia 3. hyponatremia 4. bipolar - on lithium 5. depression 6. change in mental status 7. nephrolithiasis 8. left kidney hydronephrosis 9. sepsis 10. acidosis 11. elevated INR 12. thrombocytopenia 13. malnutrition Plan - pt is now hypernatremic - change fluids to d5w with amp of bicarb and decrease rate to 42 cc - can give a dose of lasix - pt has not been eating for drinking and is still lethargic - reviewed cxr and ct scan - discussed with ICU team - will need to discuss overall GOC - micaela likely from pre-renal disease and obstruction - workup in progress - maintain Alex Bueno
[2017-07-10] MEDS ORDERED: KCL 10 MEQ IVPB 10 MEQ/100 ML INFUS.BAG IVPB SCH (13:15)
[2017-07-10] MEDS ORDERED: DEXTROSE 5%-WATER - 1,000 ML with SODIUM BICARBONATE 8.4% - 75 MEQ IV SCH (13:15)
[2017-07-10] MEDS: CALCIUM 500MG/VIT-D 200 UNITS COMBO TABLET (FP) PO SCH (13:47)
[2017-07-10] MEDS: POLYETHYLENE GLYCOL 3350 119 GM BTL PO SCH (13:47)
[2017-07-10] MEDS: SODIUM BICARBONATE 8.4% - 75 MEQ in DEXTROSE 5%-WATER - 1,000 ML IV SCH (13:48)
[2017-07-10] MEDS: POTASSIUM CHLORIDE 10 MEQ in SODIUM CHLORIDE 100 ML IVPB SCH ×2 (15:17→16:20)
--- NOTE | 2017-07-10 15:21 | PN ---
Progress Note (short form) - Note Progress Note: Abnormal Lab Results 07/05/17 07/10/17 07/10/17 08:55 05:10 05:10 WBC 23.0 H RBC 3.55 L Hgb 9.5 L Hct 29.9 L MCHC 31.9 L RDW 16.0 H Plt Count 65 L Sodium 147 H Chloride 119 H Carbon Dioxide 13 L BUN 80 H Creatinine 2.1 H Random Glucose 160 H Calcium 7.2 L Total Bilirubin 2.2 H AST 40 H ALT 84 H Alkaline Phosphatase 536 H Total Protein 5.0 L Albumin 1.5 L Crossmatch See Detail RUQ sonogram ordered Problem List - Problems (1) Transaminasemia Code(s): R74.0 - NONSPEC ELEV OF LEVELS OF TRANSAMNS & LACTIC ACID DEHYDRGNSE (2) Cholestasis Code(s): K83.1 - OBSTRUCTION OF BILE DUCT
[2017-07-10] MEDS ORDERED: ALBUTEROL SO4 2.5/IPRATROPIUM 0.5 INH SOL 3 ML VIAL.NEB. NEB PRN (22:38)
[2017-07-10] MEDS ORDERED: HYDROmorphone HCL CARPU-JECT 2 MG/1 ML DISP.SYRIN IVPB PRN (22:38)
[2017-07-10] MEDS ORDERED: diphenhydrAMINE HCL 25 MG CAPSULE (FP) PO PRN (22:38)
[2017-07-10] MEDS ORDERED: ACETAMINOPHEN 325 MG TABLET (FP) PO PRN (22:38)
[2017-07-10] MEDS: CHLORHEXIDINE GLUCONATE 4% CLEANSER FOR DECOLONIZATION TP SCH (22:59)
[2017-07-10] MEDS: LITHIUM CARBONATE 150 MG CAPSULE PO SCH (22:59)
[2017-07-11] MEDS ORDERED: PT OWN MED DRAWER 7, Y5N ONE ×4 (01:21→13:33)
[2017-07-11] MEDS: FAMOTIDINE 20 MG/50 ML IVPB 20 MG/50 ML MG IVPB SCH ×3 (01:30→21:37)
[2017-07-11 07:29] LABS: HEMATOCRIT 31.1 % (32.4-45.2); HEMOGLOBIN 9.9 GM/dL (10.7-15.3); MCHC 31.9 g/dl (32.0-36.0); MEAN CELL VOLUME 84.6 fl (80-96); MEAN PLT VOLUME 8.4 fl (7.5-11.1); PLATELET COUNT 77 K/MM3 (134-434); RBC 3.68 M/mm3 (3.60-5.2); RDW 16.2 % (11.6-15.6); WHITE BLOOD COUNT 26.4 K/mm3 (4.0-10.0)
[2017-07-11 07:35] LABS: CHLORIDE 123 mmol/L (98-107); POTASSIUM 4.2 mmol/L (3.5-5.1); SODIUM 152 mmol/L (136-145)
--- NOTE | 2017-07-11 09:05 | PN ---
Progress Note, Physician History of Present Illness: On regular floor now. On ventimask. US of the liver results noted. O - Current Medication List Current Medications: Active Medications Acetaminophen (Tylenol -) 650 mg PO Q4H PRN PRN Reason: FEVER Albuterol/Ipratropium (Duoneb -) 1 amp NEB Q4H PRN PRN Reason: SHORTNESS OF BREATH Calcium Carbonate/Cholecalciferol (Os-Leo 500+D -) 1 tab PO DAILY OSMAN Diphenhydramine HCl (Benadryl -) 25 mg PO Q6H PRN PRN Reason: FOR ITCHING Hydromorphone HCl (Dilaudid Injection -) 0.5 mg IVPB Q4H PRN PRN Reason: PAIN- PT IS NON-VERBAL Last Admin: 07/11/17 00:05 Dose: 0.5 mg Sodium Bicarbonate 75 meq/ (Dextrose) 1,075 mls @ 42 mls/hr IV Q25H OSMAN Last Admin: 07/10/17 13:48 Dose: 42 mls/hr Aztreonam (Azactam (Restricted To Id) -) 1 gm in 10 mls @ 120 mls/hr IVPUSH BID OSMAN PRN Reason: Protocol Famotidine/Sodium Chloride (Pepcid 20 Mg Premixed Ivpb -) 20 mg in 50 mls @ 144 mls/hr IVPB BID OSMAN [place] Carbonate (Eskalith -) 150 mg PO HS OSMAN Polyethylene Glycol (Miralax (For Daily Use) -) 17 gm PO DAILY OSMAN Saliva Substitute (Mouthkote Solution -) 1 applic MM DAILY OSMAN - Objective Vital Signs: Vital Signs Temperature 100.1 F H 07/11/17 06:00 Pulse Rate 90 07/11/17 06:00 Respiratory Rate 19 07/11/17 06:00 Blood Pressure 152/75 07/11/17 06:00 O2 Sat by Pulse Oximetry (%) 93 L 07/10/17 21:00 Constitutional: Yes: Mild Distress, Pallor Neurological: Yes: Alert (self) Labs: CBC, BMP 07/11/17 06:30 07/11/17 06:30 INR, PTT INR 1.35 (0.82-1.09) H 07/06/17 15:00 Fibrinogen > 700.0 mg/dL (238-498) H 07/08/17 05:40 CBCD WBC 26.4 K/mm3 (4.0-10.0) H 07/11/17 06:30 RBC 3.68 M/mm3 (3.60-5.2) 07/11/17 06:30 Hgb 9.9 GM/dL (10.7-15.3) L 07/11/17 06:30 Hct 31.1 % (32.4-45.2) L 07/11/17 06:30 MCV 84.6 fl (80-96) 07/11/17 06:30 MCHC 31.9 g/dl (32.0-36.0) L 07/11/17 06:30 RDW 16.2 % (11.6-15.6) H 07/11/17 06:30 Plt Count 77 K/MM3 (134-434) L 07/11/17 06:30 MPV 8.4 fl (7.5-11.1) 07/11/17 06:30 CMP Sodium 152 mmol/L (136-145) H 07/11/17 06:30 Potassium 4.2 mmol/L (3.5-5.1) 07/11/17 06:30 Chloride 123 mmol/L (98-107) H 07/11/17 06:30 Carbon Dioxide 13 mmol/L (21-32) L 07/10/17 05:10 Anion Gap 15 (8-16) 07/10/17 05:10 BUN 80 mg/dL (7-18) H 07/10/17 05:10 Creatinine 2.1 mg/dL (0.55-1.02) H 07/10/17 05:10 Creat Clearance w eGFR 22.33 (>60) 07/10/17 05:10 Calcium 7.2 mg/dL (8.5-10.1) L 07/10/17 05:10 Total Bilirubin 2.2 mg/dL (0.2-1.0) H 07/10/17 05:10 AST 40 U/L (15-37) H 07/10/17 05:10 ALT 84 U/L (12-78) H 07/10/17 05:10 Alkaline Phosphatase 536 U/L (45-117) H 07/10/17 05:10 Total Protein 5.0 g/dl (6.4-8.2) L 07/10/17 05:10 Albumin 1.5 g/dl (3.4-5.0) L 07/10/17 05:10 Problem List - Problems (1) Transaminasemia Code(s): R74.0 - NONSPEC ELEV OF LEVELS OF TRANSAMNS & LACTIC ACID DEHYDRGNSE (2) Cholestasis Code(s): K83.1 - OBSTRUCTION OF BILE DUCT Assessment/Plan Liver enzymes are slowly trending down Labs as per floor protocol Avoid prolonged episodes of hypotension Consider only essential medications will follow
[2017-07-11 09:10] LABS: ARTERIAL BLD GAS O2 SATURATION 92.9 % (90-98.9); ARTERIAL BLOOD GAS BASE EXCESS -8.9 meq/l (-2-2); ARTERIAL BLOOD GAS PCO2 35.7 mmHg (35-45); ARTERIAL BLOOD GAS PO2 64.7 mmHg (68-100); ARTERIAL BLOOD GAS pH 7.29 (7.35-7.45)
[2017-07-11 09:12] LABS: ALLENS TEST POSITIVE
[2017-07-11] MEDS: AZTREONAM 1 GRAM SYRINGE 1 GM/10 ML DISP.SYRIN IVPUSH SCH ×2 (09:30→21:38)
[2017-07-11] MEDS: CALCIUM 500MG/VIT-D 200 UNITS COMBO TABLET (FP) PO SCH (09:32)
[2017-07-11] MEDS: POLYETHYLENE GLYCOL 3350 119 GM BTL PO SCH (09:32)
[2017-07-11] MEDS: LYTES/YERBA SANTA 240 ML BOTTLE MM SCH (09:55)
--- NOTE | 2017-07-11 10:59 | PN ---
Progress Note, Physician History of Present Illness: PULMONARY POORLY RESPONSIVE ON VM,MILDLY TACHYPNEIC - Current Medication List Current Medications: Active Medications Acetaminophen (Tylenol -) 650 mg PO Q4H PRN PRN Reason: FEVER Albuterol/Ipratropium (Duoneb -) 1 amp NEB Q4H PRN PRN Reason: SHORTNESS OF BREATH Calcium Carbonate/Cholecalciferol (Os-Leo 500+D -) 1 tab PO DAILY [facility] Last Admin: 07/11/17 09:32 Dose: Not Given Diphenhydramine HCl (Benadryl -) 25 mg PO Q6H PRN PRN Reason: FOR ITCHING Hydromorphone HCl (Dilaudid Injection -) 0.5 mg IVPB Q4H PRN PRN Reason: PAIN- PT IS NON-VERBAL Last Admin: 07/11/17 00:05 Dose: 0.5 mg Sodium Bicarbonate 75 meq/ (Dextrose) 1,075 mls @ 42 mls/hr IV Q25H [facility] Last Admin: 07/10/17 13:48 Dose: 42 mls/hr Aztreonam (Azactam (Restricted To Id) -) 1 gm in 10 mls @ 120 mls/hr IVPUSH BID [facility] PRN Reason: Protocol Last Admin: 07/11/17 09:30 Dose: 120 mls/hr Famotidine/Sodium Chloride (Pepcid 20 Mg Premixed Ivpb -) 20 mg in 50 mls @ 144 mls/hr IVPB BID [facility] Last Admin: 07/11/17 09:30 Dose: 144 mls/hr [place] Carbonate (Eskalith -) 150 mg PO [facility] Polyethylene Glycol (Miralax (For Daily Use) -) 17 gm PO DAILY [facility] Last Admin: 07/11/17 09:32 Dose: Not Given Saliva Substitute (Mouthkote Solution -) 1 applic MM DAILY [facility] Last Admin: 07/11/17 09:55 Dose: 1 applic - Objective Vital Signs: Vital Signs Temperature 99.0 F 07/11/17 10:00 Pulse Rate 91 H 07/11/17 10:00 Respiratory Rate 23 07/11/17 10:00 Blood Pressure 154/73 07/11/17 10:00 O2 Sat by Pulse Oximetry (%) 93 L 07/11/17 09:00 Constitutional: Yes: Thin, Other (POORLY RESPONSIVE) Eyes: Yes: WNL HENT: Yes: WNL Neck: Yes: WNL Cardiovascular: Yes: Regular Rate and Rhythm, S1, S2 Respiratory: Yes: Rhonchi (SCATTERED RHONCHI), Tachypnea Gastrointestinal: Yes: Normal Bowel Sounds, Soft Extremities: Yes: WNL Edema: No Labs: CBC, BMP 07/11/17 06:30 07/11/17 06:30 INR, PTT INR 1.35 (0.82-1.09) H 07/06/17 15:00 Fibrinogen > 700.0 mg/dL (238-498) H 07/08/17 05:40 Problem List - Problems (1) MICAELA (acute kidney injury) Code(s): N17.9 - ACUTE KIDNEY FAILURE, UNSPECIFIED (2) Dehydration Code(s): E86.0 - DEHYDRATION (3) Gram-negative bacteremia Code(s): R78.81 - BACTEREMIA (4) Obstructive uropathy Code(s): N13.9 - OBSTRUCTIVE AND REFLUX UROPATHY, UNSPECIFIED (5) Sepsis Code(s): A41.9 - SEPSIS, UNSPECIFIED ORGANISM Assessment/Plan ASSESSMENT AND PLAN: UTI/Obstructive Uropathy Acute Kidney Injury Gram Negative Bacteremia Severe Sepsis r/o DIC s/p Cystoscopy/Left Ureteral Stent Placement Thrombocytopenia Anemia Hyponatremia Bipolar Disorder - continue antibiotics per ID - IVF - monitor urine output, creatinine - inhaled bronchodilators - taper FiO2 to keep SpO2 >90% - monitor lytes - Normal transfusion thresholds - NPO - Aspiration precautions - mechanical DVT prophylaxis DR GUERRERO
[2017-07-11 12:20] LABS: ALBUMIN 1.6 g/dl (3.4-5.0); ALK PHOS 451 U/L (45-117); ANION GAP 15 (8-16); BILIRUBIN,TOTAL 1.9 mg/dL (0.2-1.0); BLOOD UREA NITROGEN 86 mg/dL (7-18); CO2 16 mmol/L (21-32); CREATININE 2.1 mg/dL (0.55-1.02); GLUCOSE,RANDOM 183 mg/dL (74-106); MAGNESIUM 2.3 mg/dL (1.8-2.4); PHOSPHOROUS 4.8 mg/dL (2.5-4.9); SGOT/AST 48 U/L (15-37); SGPT/ALT 76 U/L (12-78); TOT PROT 5.7 g/dl (6.4-8.2)
[2017-07-11] MEDS ORDERED: AMINO ACIDS 4.25%/D5W 1,000 ML IV SCH (13:45)
[2017-07-11 13:48] LABS: MACROCYTOSIS 1+; TARGET CELLS 1+
--- NOTE | 2017-07-11 15:09 | PN ---
Progress Note, Physician History of Present Illness: Pt seen and examined at bedside. She remains lethargic. She is now in the medical [place]. - Current Medication List Current Medications: Active Medications Acetaminophen (Tylenol -) 650 mg PO Q4H PRN PRN Reason: FEVER Albuterol/Ipratropium (Duoneb -) 1 amp NEB Q4H PRN PRN Reason: SHORTNESS OF BREATH Calcium Carbonate/Cholecalciferol (Os-Leo 500+D -) 1 tab PO DAILY OSMAN Last Admin: 07/11/17 09:32 Dose: Not Given Diphenhydramine HCl (Benadryl -) 25 mg PO Q6H PRN PRN Reason: FOR ITCHING Hydromorphone HCl (Dilaudid Injection -) 0.5 mg IVPB Q4H PRN PRN Reason: PAIN- PT IS NON-VERBAL Last Admin: 07/11/17 00:05 Dose: 0.5 mg Sodium Bicarbonate 75 meq/ (Dextrose) 1,075 mls @ 42 mls/hr IV Q25H OSMAN Last Admin: 07/10/17 13:48 Dose: 42 mls/hr Aztreonam (Azactam (Restricted To Id) -) 1 gm in 10 mls @ 120 mls/hr IVPUSH BID OSMAN PRN Reason: Protocol Last Admin: 07/11/17 09:30 Dose: 120 mls/hr Famotidine/Sodium Chloride (Pepcid 20 Mg Premixed Ivpb -) 20 mg in 50 mls @ 144 mls/hr IVPB BID OSMAN Last Admin: 07/11/17 09:30 Dose: 144 mls/hr Amino Acids (Clinimix -) 1,000 mls @ 42 mls/hr IV Q24H OSMAN [place] Carbonate (Eskalith -) 150 mg PO HS OSMAN Polyethylene Glycol (Miralax (For Daily Use) -) 17 gm PO DAILY OSMAN Last Admin: 07/11/17 09:32 Dose: Not Given Saliva Substitute (Mouthkote Solution -) 1 applic MM DAILY OSMAN Last Admin: 07/11/17 09:55 Dose: 1 applic - Objective Vital Signs: Vital Signs Temperature 100.7 F H 07/11/17 14:00 Pulse Rate 84 07/11/17 14:00 Respiratory Rate 22 07/11/17 14:00 Blood Pressure 127/57 07/11/17 14:00 O2 Sat by Pulse Oximetry (%) 93 L 07/11/17 09:00 Constitutional: Yes: Calm Eyes: Yes: Conjunctiva Clear HENT: Yes: Atraumatic Neck: Yes: Supple Cardiovascular: Yes: S1, S2 Respiratory: Yes: On Venti-Mask Gastrointestinal: Yes: Soft Genitourinary: Yes: Johnson Present Musculoskeletal: Yes: Muscle Weakness Edema: Yes Neurological: Yes: Lethargy Labs: CBC, BMP 07/11/17 06:30 07/11/17 06:30 INR, PTT INR 1.35 (0.82-1.09) H 07/06/17 15:00 Fibrinogen > 700.0 mg/dL (238-498) H 07/08/17 05:40 Problem List - Problems (1) MICAELA (acute kidney injury) Code(s): N17.9 - ACUTE KIDNEY FAILURE, UNSPECIFIED (2) Dehydration Code(s): E86.0 - DEHYDRATION (3) Depression Code(s): F32.9 - MAJOR DEPRESSIVE DISORDER, SINGLE EPISODE, UNSPECIFIED (4) Electrolyte imbalance Code(s): E87.8 - OTH DISORDERS OF ELECTROLYTE AND FLUID BALANCE, NEC (5) Hypertension Code(s): I10 - ESSENTIAL (PRIMARY) HYPERTENSION (6) Hypoglycemia Code(s): E16.2 - HYPOGLYCEMIA, UNSPECIFIED (7) Hyponatremia Code(s): E87.1 - HYPO-OSMOLALITY AND HYPONATREMIA (8) Kidney stone on left side Code(s): N20.0 - CALCULUS OF KIDNEY (9) Leukocytosis Code(s): D72.829 - ELEVATED WHITE BLOOD CELL COUNT, UNSPECIFIED Qualifiers: Leukocytosis type: bandemia Qualified Code(s): D72.825 - Bandemia (10) Obstructive uropathy Code(s): N13.9 - OBSTRUCTIVE AND REFLUX UROPATHY, UNSPECIFIED Assessment/Plan Current Medications Generic Name Dose Route Start Last Admin Trade Name Freq PRN Reason Stop Dose Admin Acetaminophen 650 mg 07/10/17 22:38 Tylenol - PO Q4H PRN FEVER Albuterol/Ipratropium 1 amp 07/10/17 22:38 Duoneb - NEB Q4H PRN SHORTNESS OF BREATH Calcium Carbonate/Cholecalciferol 1 tab 07/11/17 10:00 07/11/17 09:32 Os-Leo 500+D - PO Not Given DAILY OSMAN Diphenhydramine HCl 25 mg 07/10/17 22:38 Benadryl - PO Q6H PRN FOR ITCHING Hydromorphone HCl 0.5 mg 07/10/17 22:38 07/11/17 00:05 Dilaudid Injection - IVPB 0.5 mg Q4H PRN Administration PAIN- PT IS NON-VERBAL Sodium Bicarbonate 75 meq/ 1,075 mls @ 42 mls/hr 07/10/17 13:15 07/10/17 13: 48 Dextrose IV 42 mls/hr Q25H OSMAN Administration Aztreonam 1 gm in 10 mls @ 120 mls/hr 07/11/17 10:00 07/11/17 09:30 Azactam (Restricted To Id) - IVPUSH 120 mls/hr BID OSMAN Administration Protocol Famotidine/Sodium Chloride 20 mg in 50 mls @ 144 mls/hr 07/11/17 10:00 09:30 Pepcid 20 Mg Premixed Ivpb - IVPB 144 mls/hr BID SOMAN Administration Amino Acids 1,000 mls @ 42 mls/hr 07/11/17 13:45 Clinimix - IV Q24H OSMAN [place] Carbonate 150 mg 07/11/17 22:00 Eskalith - PO HS OSMAN Polyethylene Glycol 17 gm 07/11/17 10:00 07/11/17 09:32 Miralax (For Daily Use) - PO Not Given DAILY OSMAN Saliva Substitute 1 applic 07/11/17 10:00 07/11/17 09:55 Mouthkote Solution - MM 1 applic DAILY OSMAN Administration Impression 1. MICAELA 2. hyperkalemia 3. hyponatremia 4. bipolar - on lithium 5. depression 6. change in mental status 7. nephrolithiasis 8. left kidney hydronephrosis 9. sepsis 10. acidosis 11. elevated INR 12. thrombocytopenia 13. malnutrition 14. hypernatremia Plan - discussed with medical team, will start clinimix as pt is not eating or drinking - repeat labs in am - sodium is elevated, likely from decreased free water intake - monitor urine output - can stop d5w as clinimix is started - will need to discuss overall GOC - micaela likely from pre-renal disease and obstruction - workup in progress - maintain Johnson Dr [place]
--- NOTE | 2017-07-11 15:26 | PN ---
Progress Note, Physician History of Present Illness: Poorly responsive tachypneic on ventimask Low grade temp WBC remains elevated Repeat blood c/s no growth - Current Medication List Current Medications: Active Medications Acetaminophen (Tylenol -) 650 mg PO Q4H PRN PRN Reason: FEVER Albuterol/Ipratropium (Duoneb -) 1 amp NEB Q4H PRN PRN Reason: SHORTNESS OF BREATH Calcium Carbonate/Cholecalciferol (Os-Leo 500+D -) 1 tab PO DAILY OSMAN Last Admin: 07/11/17 09:32 Dose: Not Given Diphenhydramine HCl (Benadryl -) 25 mg PO Q6H PRN PRN Reason: FOR ITCHING Hydromorphone HCl (Dilaudid Injection -) 0.5 mg IVPB Q4H PRN PRN Reason: PAIN- PT IS NON-VERBAL Last Admin: 07/11/17 00:05 Dose: 0.5 mg Aztreonam (Azactam (Restricted To Id) -) 1 gm in 10 mls @ 120 mls/hr IVPUSH BID OSMAN PRN Reason: Protocol Last Admin: 07/11/17 09:30 Dose: 120 mls/hr Famotidine/Sodium Chloride (Pepcid 20 Mg Premixed Ivpb -) 20 mg in 50 mls @ 144 mls/hr IVPB BID OSMAN Last Admin: 07/11/17 09:30 Dose: 144 mls/hr Amino Acids (Clinimix -) 1,000 mls @ 42 mls/hr IV Q24H OSMAN [place] Carbonate (Eskalith -) 150 mg PO HS OSMAN Polyethylene Glycol (Miralax (For Daily Use) -) 17 gm PO DAILY OSMAN Last Admin: 07/11/17 09:32 Dose: Not Given Saliva Substitute (Mouthkote Solution -) 1 applic MM DAILY OSMAN Last Admin: 07/11/17 09:55 Dose: 1 applic Sodium Bicarbonate (Sodium Bicarbonate -) 650 mg PO BID [facility] - Objective Vital Signs: Vital Signs Temperature 100.7 F H 07/11/17 14:00 Pulse Rate 84 07/11/17 14:00 Respiratory Rate 22 07/11/17 14:00 Blood Pressure 127/57 07/11/17 14:00 O2 Sat by Pulse Oximetry (%) 93 L 07/11/17 09:00 Constitutional: Yes: Mild Distress Eyes: Yes: Conjunctiva Clear Cardiovascular: Yes: Regular Rate and Rhythm, S1, S2 Respiratory: Yes: Diminished Gastrointestinal: Yes: Normal Bowel Sounds, Soft. No: Tenderness Edema: Yes Labs: CBC, BMP 07/11/17 06:30 07/11/17 06:30 INR, PTT INR 1.35 (0.82-1.09) H 07/06/17 15:00 Fibrinogen > 700.0 mg/dL (238-498) H 07/08/17 05:40 Assessment/Plan Gram Negative sepsis secondary to UTI Klebsiella Leukocytosis Azotemia PCN/ cephalosporin allergy Will repeat BC Stat doses vancomycin/ levaquin Prognosis poor
[2017-07-11] MEDS ORDERED: LEVOFLOXACIN 500 MG IVPB 500 MG/100 ML BAG IVPB ONE (15:29)
[2017-07-11] MEDS ORDERED: ACETAMINOPHEN 1000 MG/100 ML VIAL (NON FORMULARY) IVPB ONE (15:29)
[2017-07-11] MEDS ORDERED: VANCOMYCIN 1,000 MG in DEXTROSE 5%-WATER - 250 ML IVPB ONE (15:30)
[2017-07-11 16:29] LABS: ATYPICAL pANCA <1:20 titer (Neg:<1:20); C-ANCA <1:20 titer (Neg:<1:20); P-ANCA <1:20 titer (Neg:<1:20); PROTEINASE-3 ANTIBODY <3.5 U/mL (0.0-3.5)
[2017-07-11] MEDS: SODIUM BICARBONATE 8.4% - 75 MEQ in DEXTROSE 5%-WATER - 1,000 ML IV SCH (18:31)
--- NOTE | 2017-07-11 20:30 | PN ---
Physical Exam: SUBJECTIVE: Patient seen and examined, remains lethargic. Minimally responsive. OBJECTIVE: Palliative care following Started on Clinimax Vital Signs Period Temp Pulse Resp BP Sys/Marroquin Pulse Ox Last 24 Hr 99 F-100.7 F 74-91 - 108-154/43-75 93-93 GENERAL: lethargic, labored breathing, eyes closed Normal with no signs of trauma. NECK: Trachea midline, full range of motion, supple. LUNGS: scattered rhonchi anteriorly HEART: Regular rate and rhythm ABDOMEN: Soft, nontender, nondistended, normoactive bowel sounds, no guarding, no rebound, no hepatosplenomegaly, no masses. EXTREMITIES: +1 bilateral LE edema NEUROLOGICAL: lethargic, unable to assess Laboratory Results - last 24 hr 07/07/17 07/11/17 07/11/17 06:00 06:30 06:30 WBC 26.4 H RBC 3.68 Hgb 9.9 L Hct 31.1 L MCV 84.6 MCH 27.0 MCHC 31.9 L RDW 16.2 H Plt Count 77 L MPV 8.4 Total Counted 100 Neutrophils % No Result Required. Neutrophils % (Manual) 84.0 H Band Neutrophils % 1.0 Lymphocytes % No Result Required. Lymphocytes % (Manual) 8.0 D Monocytes % (Manual) 7 Hypochromia 1+ Polychromasia 1+ Macrocytosis 1+ Target Cells 1+ Puncture Site ABG pH ABG pCO2 at Pt Temp ABG pO2 at Pt Temp ABG HCO3 ABG O2 Sat (Measured) ABG O2 Content ABG Base Excess Jose Antonio Test O2 Delivery Device Oxygen Flow Rate Sodium 152 H Potassium 4.2 Chloride 123 H Carbon Dioxide 16 L Anion Gap 15 BUN 86 H Creatinine 2.1 H Creat Clearance w eGFR 22.33 Random Glucose 183 H Calcium 8.0 L Phosphorus 4.8 Magnesium 2.3 Total Bilirubin 1.9 H AST 48 H ALT 76 Alkaline Phosphatase 451 H Total Protein 5.7 L Albumin 1.6 L c-ANCA <1:20 Proteinase 3 (PR3) <3.5 p-ANCA <1:20 Atypical p-ANCA <1:20 Myeloperoxidase Ab <9.0 07/11/17 08:42 WBC RBC Hgb Hct MCV MCH MCHC RDW Plt Count MPV Total Counted Neutrophils % Neutrophils % (Manual) Band Neutrophils % Lymphocytes % Lymphocytes % (Manual) Monocytes % (Manual) Hypochromia Polychromasia Macrocytosis Target Cells Puncture Site Right radial ABG pH 7.29 L ABG pCO2 at Pt Temp 35.7 D ABG pO2 at Pt Temp 64.7 L D ABG HCO3 16.5 L ABG O2 Sat (Measured) 92.9 ABG O2 Content 15.5 ABG Base Excess -8.9 L Jose Antonio Test Positive O2 Delivery Device Ventilation mask Oxygen Flow Rate 50% Sodium Potassium Chloride Carbon Dioxide Anion Gap BUN Creatinine Creat Clearance w eGFR Random Glucose Calcium Phosphorus Magnesium Total Bilirubin AST ALT Alkaline Phosphatase Total Protein Albumin c-ANCA Proteinase 3 (PR3) p-ANCA Atypical p-ANCA Myeloperoxidase Ab Active Medications Generic Name Dose Route Start Last Admin Trade Name Freq PRN Reason Stop Dose Admin Acetaminophen 650 mg 07/10/17 22:38 Tylenol - PO Q4H PRN FEVER Albuterol/Ipratropium 1 amp 07/10/17 22:38 Duoneb - NEB Q4H PRN SHORTNESS OF BREATH Calcium Carbonate/Cholecalciferol 1 tab 07/11/17 10:00 07/11/17 09:32 Os-Leo 500+D - PO Not Given DAILY OSMAN Diphenhydramine HCl 25 mg 07/10/17 22:38 Benadryl - PO Q6H PRN FOR ITCHING Hydromorphone HCl 0.5 mg 07/10/17 22:38 07/11/17 00:05 Dilaudid Injection - IVPB 0.5 mg Q4H PRN Administration PAIN- PT IS NON-VERBAL Aztreonam 1 gm in 10 mls @ 120 mls/hr 07/11/17 10:00 07/11/17 09:30 Azactam (Restricted To Id) - IVPUSH 120 mls/hr BID OSMAN Administration Protocol Famotidine/Sodium Chloride 20 mg in 50 mls @ 144 mls/hr 07/11/17 10:00 09:30 Pepcid 20 Mg Premixed Ivpb - IVPB 144 mls/hr BID OSMAN Administration Amino Acids 1,000 mls @ 42 mls/hr 07/11/17 13:45 07/11/17 14:58 Clinimix - IV 42 mls/hr Q24H OSMAN Administration [place] Carbonate 150 mg 07/11/17 22:00 Eskalith - PO HS OSMAN Polyethylene Glycol 17 gm 07/11/17 10:00 07/11/17 09:32 Miralax (For Daily Use) - PO Not Given DAILY OSMAN Saliva Substitute 1 applic 07/11/17 10:00 07/11/17 09:55 Mouthkote Solution - MM 1 applic DAILY OSMAN Administration Sodium Bicarbonate 650 mg 07/11/17 22:00 Sodium Bicarbonate - PO BID OSMAN ASSESSMENT/PLAN: Patient is an 87 yo female with a significant past medical history of diverticulitis, hypertension, bipolar disorder, recent L hip replacement, presented to the ED on 07/04/2017 with AMS and found to have hyponatremia, MICAELA, L obstructive ureteropelvic junction calculus, now s/p L stent placement on 07/05. Neurology AMS Acute metabolic encephalopathy likely secondary to severe sepsis with obstructive ureteropelvic calculus Continues to be lethargic, somnolent Monitor mental status in the setting of sepsis WBC trending up ID following ID: Severe sepsis Secondary to UTI s/p stents for ureteropelvic calculus, creatinine improving Monitor intake and output Monitor kidney function and urine output Continue hydration IV hydration with D5W and bicarb Cardiology: Hypertension, chronic Monitor in the setting of sepsis F.E.N. Fluids: D5W [id number] meq of bicarb at 42 cc/hr, start clinimax Electrolytes: monitor Nutrition: on IVF, may need NGT for added nutrition, RD consult Prophylaxis: DVT: SCDs GI: pepcid
[2017-07-11] MEDS: SODIUM BICARBONATE 650 MG TABLET PO SCH (21:35)
[2017-07-11] MEDS ORDERED: LITHIUM CARBONATE 150 MG CAPSULE PO SCH (22:00)
[2017-07-12 06:12] VITALS: PULSE 75
[2017-07-12 09:36] LABS: BASO % 0.3 % (0-2.0); EOS % 0.1 % (0-4.5); HEMATOCRIT 29.1 % (32.4-45.2); HEMOGLOBIN 9.2 GM/dL (10.7-15.3); LYMPH % 6.9 % (8-40); MCHC 31.5 g/dl (32.0-36.0); MEAN CELL VOLUME 85.7 fl (80-96); MEAN PLT VOLUME 9.2 fl (7.5-11.1); MONO % 7.2 % (3.8-10.2); NEUT % 85.5 % (42.8-82.8); PLATELET COUNT 91 K/MM3 (134-434); RDW 16.5 % (11.6-15.6); WHITE BLOOD COUNT 20.4 K/mm3 (4.0-10.0)
[2017-07-12 10:16] LABS: CHLORIDE 125 mmol/L (98-107); POTASSIUM 4.4 mmol/L (3.5-5.1); SODIUM 156 mmol/L (136-145)
[2017-07-12] MEDS: FAMOTIDINE 20 MG/50 ML IVPB 20 MG/50 ML MG IVPB SCH (11:02)
[2017-07-12] MEDS: CALCIUM 500MG/VIT-D 200 UNITS COMBO TABLET (FP) PO SCH (11:03)
[2017-07-12] MEDS: POLYETHYLENE GLYCOL 3350 119 GM BTL PO SCH (11:03)
[2017-07-12] MEDS: AZTREONAM 1 GRAM SYRINGE 1 GM/10 ML DISP.SYRIN IVPUSH SCH (11:03)
[2017-07-12] MEDS: LYTES/YERBA SANTA 240 ML BOTTLE MM SCH (11:03)
[2017-07-12] MEDS: SODIUM BICARBONATE 650 MG TABLET PO SCH (11:04)
[2017-07-12 11:08] LABS: ALBUMIN 1.4 g/dl (3.4-5.0); ALK PHOS 312 U/L (45-117); ANION GAP 12 (8-16); BILIRUBIN,TOTAL 1.6 mg/dL (0.2-1.0); BLOOD UREA NITROGEN 100 mg/dL (7-18); CALCIUM 7.7 mg/dL (8.5-10.1); CO2 19 mmol/L (21-32); CREATININE 2.5 mg/dL (0.55-1.02); GLUCOSE,RANDOM 204 mg/dL (74-106); SGOT/AST 55 U/L (15-37); SGPT/ALT 66 U/L (12-78); TOT PROT 5.4 g/dl (6.4-8.2)
--- NOTE | 2017-07-12 11:43 | PN ---
Physical Exam: SUBJECTIVE: Patient seen and examined OBJECTIVE: Vital Signs Period Temp Pulse Resp BP Sys/Marroquin Pulse Ox Last 24 Hr 100.0 F-100.7 F 74-84 20-23 102-127/41-57 92-93 GENERAL: The patient is awake, alert, and fully oriented, in no acute distress. HEAD: Normal with no signs of trauma. EYES: PERRL, extraocular movements intact, sclera anicteric, conjunctiva clear. No ptosis. ENT: Ears normal, nares patent, oropharynx clear without exudates, moist mucous membranes. NECK: Trachea midline, full range of motion, supple. LUNGS: Breath sounds equal, clear to auscultation bilaterally, no wheezes, no crackles, no accessory muscle use. HEART: Regular rate and rhythm, S1, S2 without murmur, rub or gallop. ABDOMEN: Soft, nontender, nondistended, normoactive bowel sounds, no guarding, no rebound, no hepatosplenomegaly, no masses. EXTREMITIES: 2+ pulses, warm, well-perfused, no edema. NEUROLOGICAL: Cranial nerves II through XII grossly intact. Normal speech, gait not observed. PSYCH: Normal mood, normal affect. SKIN: Warm, dry, normal turgor, no rashes or lesions noted Laboratory Results - last 24 hr 07/07/17 07/11/17 07/11/17 06:00 06:30 06:30 WBC RBC Hgb Hct MCV MCH MCHC RDW Plt Count MPV Total Counted 100 Neutrophils % Neutrophils % (Manual) 84.0 H Band Neutrophils % 1.0 Lymphocytes % Lymphocytes % (Manual) 8.0 D Monocytes % Monocytes % (Manual) 7 Eosinophils % Basophils % Hypochromia 1+ Polychromasia 1+ Macrocytosis 1+ Target Cells 1+ Sodium Potassium Chloride Carbon Dioxide 16 L Anion Gap 15 BUN 86 H Creatinine 2.1 H Creat Clearance w eGFR 22.33 Random Glucose 183 H Calcium 8.0 L Phosphorus 4.8 Magnesium 2.3 Total Bilirubin 1.9 H AST 48 H ALT 76 Alkaline Phosphatase 451 H Total Protein 5.7 L Albumin 1.6 L c-ANCA <1:20 Proteinase 3 (PR3) <3.5 p-ANCA <1:20 Atypical p-ANCA <1:20 Myeloperoxidase Ab <9.0 01/24/18 01/24/18 09:16 09:16 WBC 20.4 H RBC 3.40 L Hgb 9.2 L Hct 29.1 L MCV 85.7 MCH 27.0 MCHC 31.5 L RDW 16.5 H Plt Count 91 L MPV 9.2 Total Counted Neutrophils % 85.5 H D Neutrophils % (Manual) Band Neutrophils % Lymphocytes % 6.9 L D Lymphocytes % (Manual) Monocytes % 7.2 Monocytes % (Manual) Eosinophils % 0.1 D Basophils % 0.3 Hypochromia Polychromasia Macrocytosis Target Cells Sodium 156 H Potassium 4.4 Chloride 125 H Carbon Dioxide 19 L Anion Gap 12 BUN 100 H Creatinine 2.5 H Creat Clearance w eGFR 18.26 Random Glucose 204 H Calcium 7.7 L Phosphorus Magnesium Total Bilirubin 1.6 H AST 55 H ALT 66 Alkaline Phosphatase 312 H Total Protein 5.4 L Albumin 1.4 L c-ANCA Proteinase 3 (PR3) p-ANCA Atypical p-ANCA Myeloperoxidase Ab Active Medications Generic Name Dose Route Start Last Admin Trade Name Freq PRN Reason Stop Dose Admin Acetaminophen 650 mg 07/10/17 22:38 Tylenol - PO Q4H PRN FEVER Albuterol/Ipratropium 1 amp 07/10/17 22:38 07/11/17 21:00 Duoneb - NEB 1 amp Q4H PRN Administration SHORTNESS OF BREATH Calcium Carbonate/Cholecalciferol 1 tab 07/11/17 10:00 07/12/17 11:03 Os-Leo 500+D - PO Not Given DAILY OSMAN Diphenhydramine HCl 25 mg 07/10/17 22:38 Benadryl - PO Q6H PRN FOR ITCHING Hydromorphone HCl 0.5 mg 07/10/17 22:38 07/11/17 00:05 Dilaudid Injection - IVPB 0.5 mg Q4H PRN Administration PAIN- PT IS NON-VERBAL Aztreonam 1 gm in 10 mls @ 120 mls/hr 07/11/17 10:00 07/12/17 11:03 Azactam (Restricted To Id) - IVPUSH 120 mls/hr BID OSMAN Administration Protocol Famotidine/Sodium Chloride 20 mg in 50 mls @ 144 mls/hr 07/11/17 10:00 11:02 Pepcid 20 Mg Premixed Ivpb - IVPB 144 mls/hr BID OSMAN Administration Amino Acids 1,000 mls @ 42 mls/hr 07/11/17 13:45 07/11/17 14:58 Clinimix - IV 42 mls/hr Q24H OSMAN Administration Polyethylene Glycol 17 gm 07/11/17 10:00 07/12/17 11:03 Miralax (For Daily Use) - PO Not Given DAILY OSMAN Saliva Substitute 1 applic 07/11/17 10:00 07/12/17 11:03 Mouthkote Solution - MM 1 applic DAILY OSMAN Administration Sodium Bicarbonate 650 mg 07/11/17 22:00 07/12/17 11:04 Sodium Bicarbonate - PO Not Given BID OSMAN ASSESSMENT/PLAN:
[2017-07-12] MEDS ORDERED: AMINO ACIDS 4.25%/D5W 1,000 ML IV SCH (11:55)
--- NOTE | 2017-07-12 11:55 | PN ---
Progress Note, Physician History of Present Illness: Pt seen and examined at bedside. She remains lethargic. - Current Medication List Current Medications: Active Medications Acetaminophen (Tylenol -) 650 mg PO Q4H PRN PRN Reason: FEVER Albuterol/Ipratropium (Duoneb -) 1 amp NEB Q4H PRN PRN Reason: SHORTNESS OF BREATH Last Admin: 07/11/17 21:00 Dose: 1 amp Calcium Carbonate/Cholecalciferol (Os-Leo 500+D -) 1 tab PO DAILY OSMAN Last Admin: 07/12/17 11:03 Dose: Not Given Diphenhydramine HCl (Benadryl -) 25 mg PO Q6H PRN PRN Reason: FOR ITCHING Hydromorphone HCl (Dilaudid Injection -) 0.5 mg IVPB Q4H PRN PRN Reason: PAIN- PT IS NON-VERBAL Last Admin: 07/11/17 00:05 Dose: 0.5 mg Aztreonam (Azactam (Restricted To Id) -) 1 gm in 10 mls @ 120 mls/hr IVPUSH BID OSMAN PRN Reason: Protocol Last Admin: 07/12/17 11:03 Dose: 120 mls/hr Famotidine/Sodium Chloride (Pepcid 20 Mg Premixed Ivpb -) 20 mg in 50 mls @ 144 mls/hr IVPB BID OSMAN Last Admin: 07/12/17 11:02 Dose: 144 mls/hr Amino Acids (Clinimix -) 1,000 mls @ 42 mls/hr IV Q24H OSMAN Last Admin: 07/11/17 14:58 Dose: 42 mls/hr Polyethylene Glycol (Miralax (For Daily Use) -) 17 gm PO DAILY OSMAN Last Admin: 07/12/17 11:03 Dose: Not Given Saliva Substitute (Mouthkote Solution -) 1 applic MM DAILY OSMAN Last Admin: 07/12/17 11:03 Dose: 1 applic Sodium Bicarbonate (Sodium Bicarbonate -) 650 mg PO BID [facility] Last Admin: 07/12/17 11:04 Dose: Not Given - Objective Vital Signs: Vital Signs Temperature 100.0 F H 07/12/17 06:00 Pulse Rate 75 07/12/17 06:00 Respiratory Rate 20 07/12/17 06:00 Blood Pressure 102/56 07/12/17 06:00 O2 Sat by Pulse Oximetry (%) 92 L 07/12/17 06:00 Constitutional: Yes: Mild Distress Cardiovascular: Yes: S1, S2 Respiratory: Yes: On Nasal O2 Gastrointestinal: Yes: Soft, Abdomen, Obese Genitourinary: Yes: Johnson Present Musculoskeletal: Yes: Muscle Weakness Edema: Yes Neurological: Yes: Lethargy Labs: CBC, BMP 07/12/17 09:16 07/12/17 09:16 INR, PTT INR 1.35 (0.82-1.09) H 07/06/17 15:00 Fibrinogen > 700.0 mg/dL (238-498) H 07/08/17 05:40 Problem List - Problems (1) MICAELA (acute kidney injury) Code(s): N17.9 - ACUTE KIDNEY FAILURE, UNSPECIFIED (2) Dehydration Code(s): E86.0 - DEHYDRATION (3) Depression Code(s): F32.9 - MAJOR DEPRESSIVE DISORDER, SINGLE EPISODE, UNSPECIFIED (4) Electrolyte imbalance Code(s): E87.8 - OTH DISORDERS OF ELECTROLYTE AND FLUID BALANCE, NEC (5) Hypertension Code(s): I10 - ESSENTIAL (PRIMARY) HYPERTENSION (6) Hypoglycemia Code(s): E16.2 - HYPOGLYCEMIA, UNSPECIFIED (7) Hyponatremia Code(s): E87.1 - HYPO-OSMOLALITY AND HYPONATREMIA (8) Kidney stone on left side Code(s): N20.0 - CALCULUS OF KIDNEY (9) Leukocytosis Code(s): D72.829 - ELEVATED WHITE BLOOD CELL COUNT, UNSPECIFIED Qualifiers: Leukocytosis type: bandemia Qualified Code(s): D72.825 - Bandemia (10) Obstructive uropathy Code(s): N13.9 - OBSTRUCTIVE AND REFLUX UROPATHY, UNSPECIFIED Assessment/Plan Current Medications Generic Name Dose Route Start Last Admin Trade Name Freq PRN Reason Stop Dose Admin Acetaminophen 650 mg 07/10/17 22:38 Tylenol - PO Q4H PRN FEVER Albuterol/Ipratropium 1 amp 07/10/17 22:38 07/11/17 21:00 Duoneb - NEB 1 amp Q4H PRN Administration SHORTNESS OF BREATH Calcium Carbonate/Cholecalciferol 1 tab 07/11/17 10:00 07/12/17 11:03 Os-Leo 500+D - PO Not Given DAILY OSMAN Diphenhydramine HCl 25 mg 07/10/17 22:38 Benadryl - PO Q6H PRN FOR ITCHING Hydromorphone HCl 0.5 mg 07/10/17 22:38 07/11/17 00:05 Dilaudid Injection - IVPB 0.5 mg Q4H PRN Administration PAIN- PT IS NON-VERBAL Aztreonam 1 gm in 10 mls @ 120 mls/hr 07/11/17 10:00 07/12/17 11:03 Azactam (Restricted To Id) - IVPUSH 120 mls/hr BID OSMAN Administration Protocol Famotidine/Sodium Chloride 20 mg in 50 mls @ 144 mls/hr 07/11/17 10:00 11:02 Pepcid 20 Mg Premixed Ivpb - IVPB 144 mls/hr BID OSMAN Administration Amino Acids 1,000 mls @ 42 mls/hr 07/11/17 13:45 07/11/17 14:58 Clinimix - IV 42 mls/hr Q24H OSMAN Administration Polyethylene Glycol 17 gm 07/11/17 10:00 07/12/17 11:03 Miralax (For Daily Use) - PO Not Given DAILY OSMAN Saliva Substitute 1 applic 07/11/17 10:00 07/12/17 11:03 Mouthkote Solution - MM 1 applic DAILY OSMAN Administration Sodium Bicarbonate 650 mg 07/11/17 22:00 07/12/17 11:04 Sodium Bicarbonate - PO Not Given BID OSMAN Impression 1. MICAELA 2. hyperkalemia 3. hyponatremia 4. bipolar - on lithium 5. depression 6. change in mental status 7. nephrolithiasis 8. left kidney hydronephrosis 9. sepsis 10. acidosis 11. elevated INR 12. thrombocytopenia 13. malnutrition 14. hypernatremia Plan - sodium is worsening - consider NG tube to replace free water deficit - cont clinimix - will need to clarify GOC - renal function is worsening - micaela likely from pre-renal disease and obstruction - workup in progress - maintain Alex Bueno
--- NOTE | 2017-07-12 15:04 | DS ---
Physical Exam: SUBJECTIVE: Patient seen and examined at the bedside. Patient remains lethargic, unresponsive to verbal or tactile stimuli. OBJECTIVE: Spoke to patient's sons Johnny and Zack who wish for their mom to be kept comfortable, no invasive procedures, no NGT, no PEG tube They are asking for transfer to [facility] Right subclavian TLC removed intact, pressure dressing applied, no bleeding noted, sterile dressing in place Patient for d/c to [facility] today Vital Signs Period Temp Pulse Resp BP Sys/Marroquin Pulse Ox Last 24 Hr 100.0 F-100.6 F 74-82 20-23 102-108/41-56 92-93 PHYSICAL EXAM GENERAL: lethargic, non responsive to verbal or tactile stimuli HEAD: Normal with no signs of trauma. EYES: eyes closed, unable to assess pupils ENT: Ears normal, nares patent, oropharynx clear without exudates, moist mucous membranes. NECK: Trachea midline, full range of motion, supple. LUNGS: scattered rhonchi anteriorly, remains on bipap mask HEART: NSR ABDOMEN: Soft, nontender, nondistended, normoactive bowel sounds, no guarding, no rebound, no hepatosplenomegaly, no masses. EXTREMITIES: 2+ pulses, warm, well-perfused, no edema. NEUROLOGICAL: non verbal PSYCH: Normal mood, normal affect. SKIN: Warm, dry, normal turgor, no rashes or lesions noted. LABS Laboratory Results - last 24 hr 07/07/17 07/12/17 07/12/17 06:00 09:16 09:16 WBC 20.4 H RBC 3.40 L Hgb 9.2 L Hct 29.1 L MCV 85.7 MCH 27.0 MCHC 31.5 L RDW 16.5 H Plt Count 91 L MPV 9.2 Neutrophils % 85.5 H D Lymphocytes % 6.9 L D Monocytes % 7.2 Eosinophils % 0.1 D Basophils % 0.3 Sodium 156 H Potassium 4.4 Chloride 125 H Carbon Dioxide 19 L Anion Gap 12 BUN 100 H Creatinine 2.5 H Creat Clearance w eGFR 18.26 Random Glucose 204 H Calcium 7.7 L Total Bilirubin 1.6 H AST 55 H ALT 66 Alkaline Phosphatase 312 H Total Protein 5.4 L Albumin 1.4 L c-ANCA <1:20 Proteinase 3 (PR3) <3.5 p-ANCA <1:20 Atypical p-ANCA <1:20 Myeloperoxidase Ab <9.0 HOSPITAL COURSE: Date of Admission:07/04/17 Date of Discharge: 07/12/17 ASSESSMENT/PLAN: Patient is an 87 yo female with a significant past medical history of diverticulitis, hypertension, bipolar disorder, recent L hip replacement, presented to the ED on 07/04/2017 with AMS and found to have hyponatremia, MICAELA, L obstructive ureteropelvic junction calculus, now s/p L stent placement on 07/05. Neurology AMS/Acute metabolic encephalopathy likely secondary to severe sepsis with obstructive ureteropelvic calculus, bacteremia and UTI Continues to be lethargic, somnolent, unresponsive Continue Aztrenam, Vancomycin given on 07/[address] abdomen and pelvis negative for abscess, infection Continues to have temps tmax 100.9F WBC trending down ID following ID: Severe sepsis Secondary to UTI, Bacteremia s/p stents placement on 07/07 for ureteropelvic calculus, creatinine slightly improving Monitor intake and output Monitor kidney function and urine output Continue hydration with Clinimax, D5 Renal/Urology: UTI/Obstructive uropathy CTAP with obstructing calculus at the left ureteropelvic junction, Left ureteral stent placement on 07/05 Monitor creatinine Acute Kidney Injury, Creatinine 2.5 today Continue yan catheter Cardiology: Hypertension, chronic Monitor in the setting of sepsis GI: Transaminitis AST/ALT trending down, monitor Psyche: Anxiety/Depression Patient was undergoing ECTs as an outpatient, but mental status became altered and was admitted to [facility]. Unable to take PO meds secondary to mental status [place] on hold, also has MICALEA Psyche referral recommended F.E.N. Fluids: Clinimax, NPO Electrolytes: monitor Nutrition: Clinimax Prophylaxis: SCDs bilaterally GI: Protonix ivpb Disposition: DNR/DNI, goals of care discussed with patient's son who are asking for [facility] placement. Minutes to complete discharge: 60 Discharge Summary Reason For Visit: DEHYDRATION,KIDNEY STONES Current Active Problems MICAELA (acute kidney injury) (Acute) Cholestasis (Acute) Dehydration (Acute) Depression (Acute) Electrolyte imbalance (Acute) Elevated INR (Acute) Gram-negative bacteremia (Acute) Hypertension (Acute) Hypoglycemia (Acute) Hyponatremia (Acute) Kidney stone on left side (Acute) Leukocytosis (Acute) Obstructive uropathy (Acute) Sepsis (Acute) Transaminasemia (Acute) Condition: Guarded - Instructions Diet, Activity, Other Instructions: Mrs. Banks/Family: Mrs Banks will be transferred to [facility] for continued care. Please see chart for MOLST forms and living will. Recommend to continue Aztreonam 1 gram twice per day for sepsis. Patient wishes is not to have an NGT or Peg Tube. Patient was receiving Clinimax/Amino Acids multivitamin therapy since 07/11/2017 as she is unable to tolerate anything by mouth. Please call me if you have questions. Danyelle Alvarez[place] [employer]ION SPECIALIST [facility] [phone] Referrals: Kacie Bueno MD [Staff Physician] - Carlton Frias MD [Staff Physician] - Disposition: TRANSFER ACUTE CARE/OTHER HOSP - Home Medications Comprehensive Discharge Medication List: Ambulatory Orders Albuterol 2.5/Ipratropium 0.5 [Duoneb -] 1 amp NEB Q4H PRN amp 07/12/17 Albuterol 2.5/Ipratropium 0.5 [Duoneb -] 1 amp NEB Q4H PRN amp 07/12/17 Bisacodyl Suppository [Dulcolax Suppository -] 10 mg RC DAILY #30 supp.rect Hydromorphone Injection [Dilaudid Injection -] 0.5 mg IVPB Q4H PRN #14 disp.syrin MDD 6 doses in a 24 hr period 07/12/17 Lytes/Yerba Christel [Mouthkote Solution -] 1 applic MM DAILY applic 07/12/17 Lytes/Yerba Christel [Mouthkote Solution -] 1 applic MM DAILY applic 07/12/17 Mupirocin Ointment [Bactroban Ointment (For Decolonization) -] 1 applic NS BID applic 07/12/17 This patient is new to me today: No Emergency Visit: Yes ED Registration Date: 07/04/17 Care time: The patient presented to the Emergency Department on the above date and was hospitalized for further evaluation of their emergent condition. Critical Care patient: No - Discharge Referral Referred to [facility] Med P.C.: No
[2017-07-12 15:49] VITALS: BP 104/60; TEMP 100.4
== END 2017-07-12 17:28 | disposition hospice, inpatient (51) | DRG 871 ==
LOC: FER 09:12 → FM/S 16:55 → JICU 07-05 18:14 → J4W 07-10 19:15
PROVIDERS: ADMIT Internal Medicine; ATTEND Nurse Practitioner Family
PROC: BT1FZZZ Fluoroscopy of Left Kidney, Ureter and Bladder (ICD-10-PCS; 2017-07-05)
PROC: 0T778DZ Dilation of Left Ureter with Intraluminal Device, Via Natural or Artificial Opening Endoscopic (ICD-10-PCS; principal; 2017-07-05 11:32)
PROC: 05HM33Z Insertion of Infusion Device into Right Internal Jugular Vein, Percutaneous Approach (ICD-10-PCS; 2017-07-06)
PROC: B513ZZA Fluoroscopy of Right Jugular Veins, Guidance (ICD-10-PCS; 2017-07-06)
PROC: B543ZZA Ultrasonography of Right Jugular Veins, Guidance (ICD-10-PCS; 2017-07-06)
DX: A41.50 Gram-negative sepsis, unspecified (principal); J96.01 Acute respiratory failure with hypoxia; G93.41 Metabolic encephalopathy; E87.1 Hypo-osmolality and hyponatremia; N20.2 Calculus of kidney with calculus of ureter; N17.9 Acute kidney failure, unspecified; N13.0 Hydronephrosis with ureteropelvic junction obstruction; E87.2 Acidosis; N39.0 Urinary tract infection, site not specified; E46 Unspecified protein-calorie malnutrition; N13.6 Pyonephrosis; E78.5 Hyperlipidemia, unspecified; Z87.891 Personal history of nicotine dependence; E86.0 Dehydration; E11.649 Type 2 diabetes mellitus with hypoglycemia without coma; E87.8 Other disorders of electrolyte and fluid balance, not elsewhere classified; K57.30 Diverticulosis of large intestine without perforation or abscess without bleeding; Z66 Do not resuscitate; F41.9 Anxiety disorder, unspecified; D72.829 Elevated white blood cell count, unspecified; R79.1 Abnormal coagulation profile; Z96.642 Presence of left artificial hip joint; Z79.84 Long term (current) use of oral hypoglycemic drugs; D69.6 Thrombocytopenia, unspecified; Z88.0 Allergy status to penicillin; R65.20 Severe sepsis without septic shock; L27.0 Generalized skin eruption due to drugs and medicaments taken internally; T36.1X5A Adverse effect of cephalosporins and other beta-lactam antibiotics, initial encounter; F31.9 Bipolar disorder, unspecified; B95.2 Enterococcus as the cause of diseases classified elsewhere; B96.1 Klebsiella pneumoniae [K. pneumoniae] as the cause of diseases classified elsewhere; K76.0 Fatty (change of) liver, not elsewhere classified; N13.9 Obstructive and reflux uropathy, unspecified; I95.9 Hypotension, unspecified; Z68.25 Body mass index [BMI] 25.0-25.9, adult
CPT/HCPCS: 36415; 36430; 36600; 70450-TC; 71045-TC; 71250-TC; 72170-TC; 74019-TC; 74176-TC; 76000-TC; 76705-TC; 80048; 80053; 80074; 80178; 81003; 81015; 82248; 82436; 82533; 82570; 82803; 82962; 83520; 83605; 83735; 83930; 83935; 84100; 84133; 84300; 84443; 85025; 85027; 85384; 85610; 85730; 86022; 86038; 86256; 86704; 86706; 86708; 86850; 86900; 86901; 86922; 87040; 87086; 87186; 87340; 93005; 93306-TC; 94640; 94760; 97161-GP; 99284-25; G0480; P9034; P9038; P9058

== ENCOUNTER → 2017-07-04 | Day surgery (SDC) | payer OTHER ==
--- NOTE | 2017-07-04 06:58 | HP ---
Admitting History and Physical - Admission History of Present Illness: Patient is a 87 y/o female with a past medical history of depression, anxiety, macular degeneration (legally blind), hypertension, and diverticulitis. Patient is s/p left hip fracture and left total hip replacement on 06/15/17 after a mechanical fall at [facility]. Patient's sons report she recovered at home and was participating in physical therapy daily. Patient's pain medications was changed to tramadol last week and she developed increased confusion on , 06/29/17. Patient son and daughter in law report , she has decreased appetite, confusion and is not taking her medication. Daughter in law report her last dose of ultram was last week. History Source: Patient Limitations to Obtaining History: No Limitations - Past Medical History Cardiovascular: Yes: HTN Gastrointestinal: Yes: Diverticulitis Musculoskeletal: Yes: Other (left hip replacement 06/15/17) Endocrine: Yes: Diabetes Mellitus - Past Surgical History Past Surgical History: Yes: Cholecystectomy, - Smoking History Smoking history: Former smoker Have you smoked in the past 12 months: No If you are a former smoker, when did you quit?: - Alcohol/Substance Use Hx Alcohol Use: No History of Substance Use: reports: None - Social History Usual Living Arrangement: Yes: With Child ADL: Independent Occupation: retired History of Recent Travel: No Home Medications - Allergies Allergies/Adverse Reactions: Allergies Allergy/AdvReac Type Severity Reaction Status Date / Time Penicillins Allergy Severe Hives Verified 03/24/17 17:16 - Home Medications Home Medications: Ambulatory Orders Atenolol [Tenormin] 25 mg PO DAILY 09/15/16 Atorvastatin Ca [Lipitor] 10 mg PO HS 09/15/16 Cholecalciferol (Vitamin D3) [Vitamin D3] 2,000 unit PO DAILY 09/15/16 [place] Carbonate [Eskalith -] 150 mg PO HS 09/15/16 Losartan Potassium 100 mg PO DAILY 09/15/16 Vitamin B Complex 1 each PO DAILY 10/10/16 Metformin HCl 500 mg PO DAILY 11/29/16 Rivaroxaban [Xarelto -] 10 mg PO DAILY 07/04/17 Family Disease History - Family Disease History Family Disease History: Other: Daughter (depresssion ) Review of Systems - Review of Systems Constitutional: reports: Lethargy, Loss of Appetite, Weakness Eyes: reports: No Symptoms HENT: reports: No Symptoms Neck: reports: No Symptoms Cardiovascular: reports: No Symptoms Respiratory: reports: No Symptoms Gastrointestinal: reports: Constipation Genitourinary: reports: No Symptoms Musculoskeletal: reports: No Symptoms Integumentary: reports: No Symptoms Neurological: reports: Confusion Endocrine: reports: No Symptoms Hematology/Lymphatic: reports: No Symptoms Psychiatric: reports: No Symptoms Physical Examination Constitutional: Yes: Anxious, Mild Distress Eyes: Yes: WNL, Conjunctiva Clear, EOM Intact HENT: Yes: WNL, Atraumatic, Normocephalic Neck: Yes: WNL, Supple, Trachea Midline Cardiovascular: Yes: WNL, Regular Rate and Rhythm, S1, S2 Respiratory: Yes: Regular, CTA Bilaterally Gastrointestinal: Yes: Distention Renal/: Yes: WNL Breast(s): Yes: WNL Musculoskeletal: Yes: Other (left lateral hip steristrips intact, no erythema no drainage noted) Extremities: Yes: WNL Edema: No Peripheral Pulses WNL: Yes Integumentary: Yes: Other (left hip surgical site, clean and dry, steri-strips intact) Wound/Incision: Yes: Steri Strips Neurological: Yes: Lethargy, Weakness Psychiatric: Yes: Agitated Labs: reviewed 05/05 Imaging - Results EKG: Report Reviewed, Image Reviewed, Other (sinus bradycardia with right bundle branch block) Assessment/Plan Patient is a 87 y/o female that presents for ECT, patient is s/p left hip replacement, patient is noted to be tachycardic and hypotensive on exam, due to change in patient's mental status and physical exam patient is not medically optimized procedure. case discussed with Dr Genao (psychiatrist) and Dr Purdy (anesthesia) advise deferring ECT at this time until patient is medically stable.
[2017-07-04 08:09] VITALS: BP 100/51; PULSE 121; TEMP 97.8; BMI 21.8
--- NOTE | 2017-07-05 13:48 | CONS ---
DATE OF CONSULTATION: DATE OF DICTATION: 07/05/2017 HISTORY OF PRESENT ILLNESS: The patient is an 87-year-old female who was evaluated for gram-negative sepsis. The patient was admitted from home after reports of increasing confusion and decreased oral intake. She was evaluated at [facility] where she was noted to have fever and an elevated white blood cell count. A CT scan of the abdomen showed a kidney stone at the left UV junction with left hydronephrosis. Her course was complicated by fever, elevated white blood cell count, and now positive blood cultures for gram-negative rods. The patient is awake. However, she is not conversant. She offers no complaints. No reports of shaking chills, labored breathing, cough, vomiting, diarrhea, or grossly purulent urine. PAST MEDICAL HISTORY: Positive for depression, anxiety, macular degeneration, hypertension, diverticulitis, diabetes mellitus. PAST SURGICAL HISTORY: Status post recent left hip fracture. She was discharged from another facility on June 22 after a hip replacement. Past surgical history also includes cholecystectomy, section, and ECT. ALLERGIES: To PENICILLIN (hives). MEDICATIONS: Atenolol, Lipitor, lithium, metformin, Xarelto. SOCIAL HISTORY: She lives at home with family members. She is a former smoker. SYSTEMS REVIEW: Neurologic: Positive for depression and anxiety. No loss of consciousness, seizure activity, or focal weakness. Cardiac: Negative for chest pain or palpitations. Respiratory: Negative for cough or sputum production. Gastrointestinal: Negative for vomiting or diarrhea. Genitourinary: As per HPI. LABORATORY DATA: White count 14.8, hematocrit 29.6, platelet count 67. BUN 66, creatinine 3.4. Urinalysis 15-30 white cells. Serum sodium 127. Blood cultures gram-negative rods. PHYSICAL EXAMINATION: General: She is awake. She is not conversant. Vital signs: Temperature 100.1, maximum temperature 101.4, blood pressure 98/39, pulse 75 and regular, respirations 19 per minute. HEENT: Sclerae anicteric. Heart: Heart sounds S1, S2. Lungs: Clear. Poor inspiratory effort. Abdomen: Soft. There is left paraumbilical and suprapubic tenderness to palpation. Extremities: Positive for edema. IMPRESSION: 1. Gram-negative bacteremia/sepsis secondary to urinary tract infection. 2. Obstructive uropathy secondary to left nephrolithiasis. 3. Leukocytosis/thrombocytopenia secondary to sepsis. 4. Hyponatremia. 5. Azotemia. 6. PENICILLIN allergy. Await culture results, discussed with , patient for cysto and stent this morning, empiric antibiotic coverage with cefepime 2 g 1 g IV piggyback every 12 hours, pending culture results. Will follow. Thank you for the kind referral. YONATAN MARKS M.D. [id number]
== END | disposition short-term general hospital (02) ==
LOC: FECT 06:57
PROVIDERS: ATTEND Psychiatry & Neurology Psychiatry
PROC: GZB4ZZZ Other Electroconvulsive Therapy (ICD-10-PCS; principal; 2017-07-04)
DX: F33.2 Major depressive disorder, recurrent severe without psychotic features (principal); Z53.09 Procedure and treatment not carried out because of other contraindication